=== PATIENT | female | born 1980 | race Caucasian/White ===

== ENCOUNTER 2017-11-23 12:00 | Outpatient (RCR) | payer BC, SELFPAY ==
--- NOTE | 2017-11-12 08:28 | AT_ITS ---
11/12/17 ATx1: See flow sheet, skilled cueing for LE strengthening program with focus of (L) knee stability via open and closed chain efforts. Skilled cueing for proper movement patterns but otherwise requires minimal supervision once cued. Direct tx: 15 minutes for instruction and then able to complete with minimal supervision. Total Time: 45 minutes Direct Time: 15 minutes
--- NOTE | 2017-11-17 09:43 | NT_ITS ---
11/17/17 Cancelled today's aquatic therapy session. Lizbet Tenorio, IN [employer]
--- NOTE | 2017-11-19 15:27 | AT_ITS ---
11/19/17 ATx1 Bernice states that after last aquatic therapy session she was a little sore but it wasn't too bad. She reports that this is her last scheduled PT session before she sees Dr. Martin on Thursday next week. Pt completed a therapeutic exercise program in an aquatic setting for LE strengthening with decompression for pain relief as per flow sheet. Added ankle fins for resistance to all exercises today with good tolerance and modifications made to reps are noted on flow sheet. Pt requires skilled cueing for proper exercise performance to avoid compensatory movement strategies. She ends with deep water biking, double knee to chest, LE flexion and extension and LE abduction and adduction. Direct Time: 15 minutes Total Time: 45 minutes
--- NOTE | 2017-11-23 12:19 | PTTR_ITS ---
DATE: 11/23/17 SUBJECTIVE: Patient reports she has 7/10 discomfort if standing beyond one hour , and has immediate swelling. Her pain is more well managed now, only because she stays off of her feet. She follows up with Dr. Martin tomorrow. Compliant with HEP: x Yes No OBJECTIVE: KX applied to all codes N/A Gait: Antalgic, with decreased stance L LE. Of L knee: ROM: 0-130*, pain at end ranges, especially with hyperextension over pressure. Strength: Quad 4/5 with pain, HS 4+/5 minimal to no pain. Accessory motions: PF WNL. TF AP/PA non irritable, but pain with hyperextension and rotational overpressure. Special Testing: (+) Dylan's, (+) Thebeto's. Therapeutic procedures ([id number]). Above assessment, and review of HEP - encouraging continued [place] activities, as CKC exacerbate her condition. Direct treatment time: 15 minutes Total treatment time: 15 minutes Assessment: Bernice has essentially failed to PT conservative management. The only way to control her pain level is with with non weightbearing activities, which of course does not serve her ADL's, functional tasks, and occupational demands well. She has been compliant with all that I have asked of her, and has put good effort forward to attempt rehabilitation of her knee. Ortho follow up recommended, which anticipation of further invasive intervention needed. Plan: Ortho consultation, PT on hold. Will proceed per ortho recommendations if they have further suggestions, or will follow through with Bernice's care post ortho intervention.
== END 2017-12-11 23:59 | disposition home or self-care (01) ==
LOC: PT 12:00
PROVIDERS: PCP Nurse Practitioner Family; Referring Provider Orthopaedic Surgery; Visit Provider Orthopaedic Surgery
DX: M23.92 Unspecified internal derangement of left knee (principal)
CPT/HCPCS: 97110; 97113

== ENCOUNTER → 2017-12-03 00:45 | Outpatient (CLI) | payer BC, SELFPAY ==
--- NOTE | 2017-12-03 09:57 | DI.REPORT_ITS ---
SYMPTOM/DIAGNOSIS: LEFT KNEE PAIN M25.562, M70.52 LEFT KNEE MRI: 12/03 MR examination of the left knee was performed according to the usual protocol. Examination is technically limited as the patient would not fit in to the knee coil and the examination was performed utilizing body coil. There is subchondral abnormal bony signal in lateral femoral condyle which also appears to be associated with articular cartilage thinning. Lateral meniscus very poorly visualized and is likely torn. Medial meniscus grossly intact. Cruciate ligaments grossly intact. There appears to be some degenerative cartilage change at the patellofemoral joint. CONCLUSION: Very limited study. Intact cruciate ligaments. Degenerative arthritis involving lateral tibiofemoral joint and patellofemoral joint. Suspect lateral meniscal tear.
== END ==
PROVIDERS: PCP Nurse Practitioner Family; Visit Provider Orthopaedic Surgery
DX: M25.562 Pain in left knee (principal); M70.52 Other bursitis of knee, left knee; M17.12 Unilateral primary osteoarthritis, left knee
CPT/HCPCS: 73721

== ENCOUNTER 2017-12-15 09:55 | Outpatient (CLI) | payer BC, SELFPAY ==
--- NOTE | 2017-12-15 11:58 | W.PM.HP.N ---
Date of service: 12/15/17 Time of Service: 11:59 Assessment and Plan (1) Internal derangement of left knee: Current visit: Yes Status: Chronic Assessment: Internal derangement left knee with lateral meniscus abnormality. Plan: Left knee arthroscopy with partial lateral meniscectomy with Dr. Martin scheduled for 12/23/2017. Details were discussed with patient as well as risks and pertinent anatomy. All questions were answered. Problem details: lateral meniscus abnormality History of Present Illness Chief Complaint: Left knee pain Narrative: Bernice is a 37-year-old female who comes in complaining of left knee pain. Back in September she had a fracture to her right ankle and was forced to use a fracture walking boot. She states that her knee pain started becoming worse ever since she started wearing a fracture walking boot. She has had a previous history with this left knee including 2 arthroscopic surgeries with lateral meniscus intervention. She states that her left knee was never really quite the same even since the surgery however this recent injury has exacerbated it exponentially. She has tried conservative treatment including a tapered steroid dose as well as physical therapy which she says has gotten her about 50% better however she is not happy with where she is at. She subsequently got an MRI which showed a signal in the posterior horn of lateral meniscus according to reading by Dr. Martin. Due to the inability for her to get all the way better with conservative treatment and his findings on MRI Dr. Martin suggests arthroscopic knee surgery on her left side and Bernice is anxious to proceed. Patient denies any cardiovascular history, CVA, HTN, DM or bleeding disorders. Review of Systems Constitutional Denies fever(s) and Denies lethargy Cardiovascular Denies chest pain, Denies rapid heart rate, Denies irregular heart rhythm, Denies palpitations and Denies dyspnea on exertion Respiratory Denies cough, Denies dyspnea on exertion and Denies wheezing Gastrointestinal Denies abdominal pain, Denies hematochezia, Denies nausea and Denies vomiting Genitourinary Denies abnormal vaginal bleeding, Denies hematuria and Denies dysuria Endocrine Denies palpitations Allergic/Immunologic Denies wheezing PFSH Family History Father Essential hypertension Anxiety Depression Heart disease Hyperlipidemia Myocardial infarction COPD (chronic obstructive pulmonary disease) Diverticular disease of colon Asthma Mother Depression Diverticular disease of colon Grandfather Diabetes Alcohol abuse Personal history of malignant neoplasm Heart disease Brother Sleep apnea Essential hypertension Medical History Gastric ulcer (Chronic) Depression (Chronic) Abnormal Pap smear of cervix BMI 39.0-39.9,adult Contraceptive management Diverticulitis large intestine GERD (gastroesophageal reflux disease) Migraine Tobacco use Social History current occupational status: employed current occupation: [employer] Smoking/Tobacco Use Status: Former Tobacco Use alcohol intake: never substance use type: does not use Surgical History Arthroplasty of knee (~02/2013) Colonoscopy - MAC (10/06/17) EGD - MAC (03/21/16) Oophrectomy, Right (~2008) egd (07/13/12) lazik surgery (01/28/12) Meds Home Medications Medication Instructions Recorded Confirmed Type acetaminophen [Mapap Extra 1 tab PO PRN PRN 09/06/14 12/15/17 History Strength] ondansetron [Zofran ODT] 4 mg PO Q6H PRN #15 tab-cap 12/16/16 12/15/17 Clinic chlorthalidone 0.5 tab PO DAILY 03/05/17 12/15/17 History etonogestrel [Nexplanon] 06/10/17 History eletriptan [Relpax] 40 mg PO PRN #6 tab-cap 08/05/17 12/15/17 Clinic dicyclomine 20 mg PO QID 10/02/17 12/15/17 History celecoxib [Celebrex] 100 mg PO DAILY 10/06/17 12/15/17 History tramadol 50 mg PO Q6H PRN #30 tab-cap 10/12/17 12/15/17 History trazodone 100 mg PO HS 12/15/17 12/15/17 History Allergies Allergy/AdvReac Type Severity Reaction Status Date / Time gabapentin Allergy Intermediate muscle Unverified 12/15/17 10:50 spasm varenicline tartrate Allergy Mild Itching Unverified 12/15/17 10:50 [From Chantix] Sulfa (Sulfonamide AdvReac Severe vomiting Unverified 12/15/17 10:50 Antibiotics) NSAIDS (Non-Steroidal AdvReac Intermediate GI Symptoms Unverified 12/15/17 10:50 Anti-Inflamma zolpidem tartrate AdvReac Intermediate sleep walks Unverified 12/15/17 10:50 [From Ambien] trimethoprim [From Bactrim] AdvReac Mild Nausea Unverified 12/15/17 10:50 polyethylene glycol 3350 AdvReac GI upset Unverified 12/15/17 10:50 [From Miralax] burdocks Allergy Mild hives, Uncoded 12/15/17 10:50 itching naldecon Allergy unknown Uncoded 12/15/17 10:50 Exam [place] Head: normocephalic and atraumatic General nose exam: no nasal discharge Throat: uvula midline and other (no erythema) Eyes Conjunctivae: conjunctivae normal Sclera: sclerae normal Pupils: PERRL Resp Auscultation: clear to auscultation bilaterally Cardio Rate: regular rate Rhythm: regular rhythm Heart Sounds: S1 normal, S2 normal and no murmurs Pulses: radial pulses present on the left (rate 72, regular rhythm) Other: BP: 108/70 GI Palpation: soft, no hepatosplenomegaly and nontender Auscultation: normal bowel sounds Skin General skin exam: no rashes or lesions noted
== END 2017-12-15 10:15 ==
PROVIDERS: PCP Nurse Practitioner Family; Visit Provider Orthopaedic Surgery
DX: M23.92 Unspecified internal derangement of left knee (principal); Z01.818 Encounter for other preprocedural examination
CPT/HCPCS: NC

== ENCOUNTER 2017-12-23 11:08 | Day surgery (SDC) | payer BC, OTHER, SELFPAY ==
[2017-12-23] VITALS (7 sets, daily range): BP systolic 120–142; BP diastolic 65–87; PULSE 78–92; RESP 15–20; TEMP 36.8–37.3; O2SAT 93–96
[2017-12-23] MEDS: Lactated Ringers 1,000 ML 80 ML IV (11:55)
--- NOTE | 2017-12-23 14:19 | W.PM.DSUDISC ---
Discharge Plan Disposition Patient Disposition: HOME Condition: Good Discharge Details Reason For Visit: Arthroscopy L knee Attending Provider: Jose Martin Primary Care Provider: Julia Chen Home Meds and New Rx's Prescriptions: New celecoxib [Celebrex] 200 mg capsule 200 mg PO BID Qty: 20 RF: 0 oxycodone-acetaminophen 5-325 mg tablet 1 tab PO Q4H Qty: 20 RF: 0 No Action ondansetron [Zofran ODT] 4 MG tablet,disintegrating 4 mg PO Q6H PRN Qty: 15 RF: 0 eletriptan [Relpax] 40 MG tablet 40 mg PO PRN Qty: 6 RF: 5 tramadol 50 MG tablet 50 mg PO Q6H PRN Qty: 30 RF: 0 acetaminophen [Mapap Extra Strength] 500 MG tablet 1 tab PO PRN PRNRF: 0 famotidine 20 MG tablet 40 mg PO BID Qty: 60 RF: 0 etonogestrel [Nexplanon] 68 MG implant RF: 0 dicyclomine 20 MG tablet 20 mg PO QID RF: 0 celecoxib [Celebrex] 100 MG capsule 100 mg PO DAILY RF: 0 trazodone 50 mg Tablet 100 mg PO HS RF: 0 omeprazole 40 mg Capsule,Delayed Release(Dr/Ec) 40 mg PO DAILY RF: 0 chlorthalidone 25 MG tablet 0.5 tab PO DAILY RF: 0 Discharge Instructions Additional Instructions: Elevate L leg on 1-2 pillows as much as possible over next 48 hours. Crutches to walk. Put as much weight on L leg as your discomfort allows. May discontinue crutches when you can comfortably put frull weight on L leg. Keep dressings dry and intact for next 48 hours. After 48 hours, may remove dressings, shower, and get incisions wet. Leave incisions uncovered when they are dry and sealed. Apply cryocuff to L knee continuously overnite. Tomorrow, start to use 4 times/day for 1 hour each time. Outpatient physical therapy on Thursday. Folloow up in 's office in 2 weeks. Stand Alone Forms: [facility] Referrals: [facility] [Provider Group] - 12/25/17 12:00 am Jose Martin MD [ [facility] STAFF PHYSICIAN] - 01/06/18 11:00 am Equipment/Supplies: Partial Weight Bearing Crutches Activity:: Activity as Tolerated Remove Dressings/Wound Care:: 48 hours Shower/Bathe:: 48 hours
--- NOTE | 2017-12-23 14:49 | PDOC.DSDIS_ITS ---
Discharge Plan Disposition Patient Disposition: HOME Condition: Good Discharge Details Reason For Visit: Arthroscopy L knee Attending Provider: Jose Martin Primary Care Provider: Julia Chen Home Meds and New Rx's Prescriptions: New celecoxib [Celebrex] 200 mg capsule 200 mg PO BID Qty: 20 RF: 0 oxycodone-acetaminophen 5-325 mg tablet 1 tab PO Q4H Qty: 20 RF: 0 No Action ondansetron [Zofran ODT] 4 MG tablet,disintegrating 4 mg PO Q6H PRN Qty: 15 RF: 0 eletriptan [Relpax] 40 MG tablet 40 mg PO PRN Qty: 6 RF: 5 tramadol 50 MG tablet 50 mg PO Q6H PRN Qty: 30 RF: 0 acetaminophen [Mapap Extra Strength] 500 MG tablet 1 tab PO PRN PRNRF: 0 famotidine 20 MG tablet 40 mg PO BID Qty: 60 RF: 0 etonogestrel [Nexplanon] 68 MG implant RF: 0 dicyclomine 20 MG tablet 20 mg PO QID RF: 0 celecoxib [Celebrex] 100 MG capsule 100 mg PO DAILY RF: 0 trazodone 50 mg Tablet 100 mg PO HS RF: 0 omeprazole 40 mg Capsule,Delayed Release(Dr/Ec) 40 mg PO DAILY RF: 0 chlorthalidone 25 MG tablet 0.5 tab PO DAILY RF: 0 Discharge Instructions Additional Instructions: Elevate L leg on 1-2 pillows as much as possible over next 48 hours. Crutches to walk. Put as much weight on L leg as your discomfort allows. May discontinue crutches when you can comfortably put frull weight on L leg. Keep dressings dry and intact for next 48 hours. After 48 hours, may remove dressings, shower, and get incisions wet. Leave incisions uncovered when they are dry and sealed. Apply cryocuff to L knee continuously overnite. Tomorrow, start to use 4 times/ day for 1 hour each time. Outpatient physical therapy on Thursday. Folloow up in 's office in 2 weeks. Stand Alone Forms: [facility] Referrals: [facility] [Provider Group] - 12/25/17 12:00 am Jose Martin MD [ [facility] STAFF PHYSICIAN] - 01/06/18 11:00 am Equipment/Supplies: Partial Weight Bearing Crutches Activity:: Activity as Tolerated Remove Dressings/Wound Care:: 48 hours Shower/Bathe:: 48 hours
[2017-12-23] MEDS: oxyCODONE-CR 10 MG TABCR PO (15:25)
--- NOTE | 2017-12-23 18:30 | ROE_ITS ---
DATE OF PROCEDURE: December 23, 2017 PREOPERATIVE DIAGNOSIS: Torn left medial meniscus. POSTOPERATIVE DIAGNOSIS: #1. Torn left medial meniscus. #2 Torn left lateral meniscus. #3. Osteoarthritis of the lateral compartment left knee. PROCEDURES: #1. Arthroscopy of the left knee with partial medial and lateral meniscectomies. #2. Limited chondroplasty of the lateral femoral condyle and lateral tibial plateau. SURGEON: Jose Martin M.D. ANESTHESIA: General. INDICATIONS: This is a 37-year-old white female who has had persistent pain, swelling, and decreased ability to ambulate following a twisting injury to her left knee. She was treated conservatively wi th Celebrex and Physical Therapy. Because of failure to improve with conservative treatment an MRI s can was obtained. The MRI scan showed a torn lateral meniscus. She continued to have medial symptom s in her knee as well so there was a suspicion for a medial meniscal injury as well. Since she faile d to improve more than 50% after several weeks of Physical Therapy, arthroscopy was recommended to al leviate her symptoms. The risks and complications of the procedure were explained to the patient in detail preoperatively. PROCEDURE: The patient was taken to the Operating Room on 12/23/17. She was placed supine on the ope rating table and a general anesthetic was administered. The left thigh was placed in the arthroscopi c leg key and the left knee was then prepped and draped free in the usual sterile fashion. Arthroscopic portals were established with some difficulty because of her obesity. However, I was ab le to first see the medial compartment. The patient had a tear of the medial meniscus about at the m idportion that extended from the inner margin to the outer margin. The articular cartilage in the me dial compartment was intact and undamaged. I then thoroughly debrided the torn portion of the menisc us down to a stable rim using the high-radiofrequency electrocautery wand. The remainder of the medi al meniscus was probed under direct vision after resection. The remaining rim of meniscus was stable . I only had to debride maybe 25% of the meniscus. The intercondylar notch was intact to anterior and posterior cruciate ligaments. The lateral compartment showed a tear of the lateral meniscus beginning approximately at the poplitea l hiatus and extending to the anterior horn. The tear did not extend to the outer rim and it was a c omplex tear. I resected the lateral meniscal tear with the high-radiofrequency electrocautery wand. In addition to the torn lateral meniscus, there was evidence of osteoarthritis in the lateral compar tment. It was noted on the lateral tibial plateau starting at the lateral tibial spine and extending further laterally for probably 10 or 15 mm in diameter. There was a section that was at least grade 3 and possible grade 4 loss of articular cartilage. Opposite this tibial lesion was an area of some grade 2 loss of articular cartilage on the lateral femoral condyle. I performed a chondroplasty on the lateral femoral condyle and smoothed and contoured the cartilage to stable tissue. I then also d id a chondroplasty to debride the articular cartilage to a stable rim on the lateral tibial plateau a s well. The patellofemoral joint showed normal patellar tracking and normal articular cartilage in the patell ofemoral joint. The suprapatellar pouch was clear. At this point the knee was copiously irrigated with saline solution using the arthroscopy pump until the outflow was clear. Twenty cc's of 0.5% Marcaine with epinephrine solution along with 4 mg of mor phine were instilled into the left knee and all instruments were removed from the knee. The arthrosc opy portals were infiltrated with 0.5% Marcaine with epinephrine solution and were approximated with interrupted #4-0 nylon sutures. Sterile dressings were applied of Xeroform gauze, sterile gauze 4x4s , ABD pads, and wrapped with 6-inch Juan Manuel bandages for a light compression dressing. The patient tolerated the procedure well. Her anesthesia was reversed without complication. She was discharged to the Recovery Room in good condition and blood loss was minimal. The patient was discharged home from the Day Surgery Unit when fully recovered from her general anest hesia. She was given instructions to try to elevate her left knee on one to two pillows as much as p ossible for the next 48 hours. She is to apply a Cryo/Cuff to her left knee continuously overnight a nd then tomorrow start using the Cryo/Cuff four times a day for an hour each time to help with swelli ng and pain. She may remove her dressings, shower and get her incisions wet after 48 hours. She may leave the incisions uncovered when they are dry and sealed. She is to use crutches to walk, weightb earing as tolerated to the left leg. She may discontinue the crutches when she can step comfortably on her left leg without pain. She will begin outpatient Physical Therapy on Thursday at [facility] or range of motion and strengthening of her left knee following arthroscopy. She is given a prescrip tion for inflammation and pain of Celebrex 200 mg p.o. b.i.d. for 20 days and then a prescription for pain of Percocet 5 mg/325 mg, 1 tablet every 6 hours as needed for breakthrough pain. She will foll ow up in my office in two weeks.
== END 2017-12-23 16:02 | disposition home or self-care (01) ==
PROVIDERS: PCP Nurse Practitioner Family; Visit Provider Orthopaedic Surgery
PROC: (CPT 29870; principal; 2017-12-23 13:00)
DX: S83.272A Complex tear of lateral meniscus, current injury, left knee, initial encounter (principal); S83.242A Other tear of medial meniscus, current injury, left knee, initial encounter; M17.12 Unilateral primary osteoarthritis, left knee; X58.XXXA Exposure to other specified factors, initial encounter
CPT/HCPCS: 29879; 29880; 81025; J0131; J0690; J1100; J1885; J2405; J3010

== ENCOUNTER 2018-02-09 15:12 | Outpatient (REF) | payer BC, SELFPAY ==
[2018-02-11 14:27] LABS: Chlamydia Result Negative; GC Result Negative; Specimen Description CERVIX
== END 2018-02-09 15:32 ==
LOC: LBN 15:12
PROVIDERS: PCP Nurse Practitioner Family; Visit Provider Nurse Practitioner Family
DX: Z11.3 Encounter for screening for infections with a predominantly sexual mode of transmission (principal)
CPT/HCPCS: 87491; 87591

== ENCOUNTER 2018-02-18 11:54 | Outpatient (REF) | payer SELFPAY ==
[2018-02-18 12:25] LABS: Clarity CLEAR; Nucleated Cells 1009 /MM3 (0-0); Source L KNEE
[2018-02-18 12:39] LABS: Mononuclear Cells 92 % (0-0); Polynuclear Cells 8 % (0-0)
== END 2018-02-18 12:14 ==
LOC: LBN 11:54
PROVIDERS: PCP Nurse Practitioner Family; Visit Provider Orthopaedic Surgery
DX: M25.462 Effusion, left knee (principal)
CPT/HCPCS: 87070; 87205; 89051; 89060

== ENCOUNTER 2018-03-26 01:18 | Outpatient (CLI) | payer BC, SELFPAY ==
--- NOTE | 2018-03-31 14:01 | NS.NUTBLAN_ITS ---
Date of service: 03/26/18 Time of Service: 08:00 Nutritional Consult ASSESSMENT: Ms. Shore presents for nutritional counseling for weight management. She reports that she is frustrated by her inability to lose weight. She states that she does not feel like she eats excessively. She does admit to not being physically active as her job has her job has her on her feet all day. She tends to be a snacker. She does not eat breakfast and then throughout the day she has a Renee, cheezits, string cheese. She may have a sandwich or something small from [employer]. She does have a 20 oz. Mountain Dew daily but she does not ever get through the who thing. In the evening, if her daughter is home, she will have a meat, starch, and a vegetable dinner. If her daugher it not with her she will snacks like crackers and cheese, and pepperoni. She is 67.5 and [address]. NUTRITIONAL DIAGNOSIS: Class 3 obesity related to excess energy intake and physical inactivity as evidenced by BMI of 48 kg/m2. INTERVENTION: Acknowledged her frustration at the challenges of weight management but that there were a few things that she could try to differently. if she was willing. Encouraged her to eat not more than 4 times per day and preferably only 3 times per day to reduce the amount of circulating insulin from digestion, as insulin stores fat. Suggested eliminating the cheezits as it is about the only processed food that she eats regularly. With regard to her Mountain Dew intake, encouraged her to reduce or eliminate her intake. Until the next session Ms. Shore agrees to reduce her Mountain Dew intake and eat three specific meals. MONITORING AND EVALUATION: Ms. Shore will return in one month. Will follow her progress at that time. Will evaluate her nutrition care plan and adjust as needed. Time Spent in Nutritional Counseling and Treatment: 40 minutes face to face
== END 2018-03-26 01:38 ==
PROVIDERS: PCP Nurse Practitioner Family; Visit Provider Dietitian, Registered
DX: E66.9 Obesity, unspecified (principal); Z68.42 Body mass index [BMI] 45.0-49.9, adult; Z71.3 Dietary counseling and surveillance
CPT/HCPCS: 97802

== ENCOUNTER 2018-06-04 09:19 | Outpatient (CLI) | payer BC, SELFPAY ==
--- NOTE | 2018-06-04 09:17 | DI.RAD_ITS ---
SYMPTOM/DIAGNOSIS: LT KNEE PAIN BILATERAL LOWER EXTREMITIES: AP views of the lower extremities were obtained for leg length determination. Note is made of marked degenerative change of the medial tibiofemoral joint on the left. LEFT KNEE: Two views were obtained and show narrowing of the medial and lateral tibiofemoral joints and probably the patellofemoral joint as well. Mild hypertrophic spurring of the bones of the knee noted. CONCLUSION: DJD of the knee.
== END 2018-06-04 09:39 ==
PROVIDERS: PCP Nurse Practitioner Family; Visit Provider Physician Assistant
DX: M25.562 Pain in left knee (principal); M17.12 Unilateral primary osteoarthritis, left knee
CPT/HCPCS: 73560; 77073

== ENCOUNTER 2018-07-18 11:10 | Emergency (ER) | payer BC, SELFPAY ==
[2018-07-18] VITALS (22 sets, daily range): BP systolic 117–132; BP diastolic 76–101; PULSE 74–101; RESP 15–30; TEMP 36.6; O2SAT 99
--- NOTE | 2018-07-18 11:16 | NUR.NOTE ---
pt has a history of Endocarditis that was treated and resolved pt he here because she is terribly concerned (to the point of tears) that she has Endocarditis again as a result of her current symptoms. PT presents today with week history of nausea vomiting diarrhea neck pain headache
--- NOTE | 2018-07-18 11:49 | W.ED.GENAD ---
Discharge Plan Disposition Patient Disposition: HOME Condition: Improving Discharge Details Chief Complaint: GenMedical Clinical Impression: Gastroenteritis, Acute hypokalemia Primary Care Provider: Julia Chen ED Provider: Jose Silva Home Meds and New Rx's Prescriptions: Continued tramadol 50 mg tablet 50 mg PO Q8H PRN (Reason: pain) Qty: 90 RF: 2 ondansetron [Zofran ODT] 4 MG tablet,disintegrating 4 mg PO Q6H PRN Qty: 15 RF: 0 eletriptan [Relpax] 40 MG tablet 40 mg PO PRN Qty: 6 RF: 5 topiramate [Topamax] 50 mg tablet 50 mg PO DIRECTED Qty: 60 RF: 5 meloxicam 7.5 mg tablet 7.5 mg PO BID Qty: 60 RF: 0 trazodone 50 mg Tablet 100 mg PO HS RF: 0 lidocaine 5 % Adhesive Patch,Medicated 1 patch Transdermal DAILY RF: 0 nystatin 100,000 unit/gram Powder 1 applic topical TID PRNRF: 0 acetaminophen [Mapap Extra Strength] 500 MG tablet 1 tab PO PRN PRNRF: 0 etonogestrel [Nexplanon] 68 MG implant RF: 0 omeprazole 40 mg Capsule,Delayed Release(Dr/Ec) 40 mg PO DAILY RF: 0 chlorthalidone 25 MG tablet 0.5 tab PO DAILY RF: 0 Discharge Instructions Instructions: Hypokalemia (ED), Gastroenteritis (ED) Additional Instructions: You have requested discharge despite persistent low potassium. Return to any time for reevaluation We will order an outpatient follow-up potassium test for you with results to be sent to the primary care office. Our care management team will contact your primary care physician's office Increase potassium in your diet including bananas, strawberries, tree nuts such as cashews. Return if you feel palpitations, weakness, or any other acute concerns Medical Decision Making 37-year-old female presents from home complaining of 3+ days of nausea, vomiting, loose watery stool with associated mild dull achy headache and lightheadedness with rising. 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 No IV drug use, no rash or lesions. She is afebrile with a pulse approximately 100, mild to moderately anxious on exam. Most consistent with acute gastroenteritis, general screening laboratories including lactate and blood culture obtained. Patient given a fluid bolus. Labs most notable for a potassium of 2.4. Patient has had similar history of hypokalemia in the past. Today it is most likely secondary to GI losses. A screening EKG obtained and potassium supplementation initiated in the ED with both oral and parenteral routes. Repeat potassium obtained and increased to 2.6. Patient requested discharge to home. Her EKG does not show any acute changes. She was given an additional 20 mEq of potassium by mouth and a repeat potassium was ordered for the next 1-2 days time. This may be some chronic losses due to her chlorthalidone . Idiscussed with her that I recommend ongoing observation and supplementation with repeat potassium but she declines this stating she needs to attend to her children at home. Lab Data Laboratory Results - last 24 hr 07/18/18 07/18/18 07/18/18 12:00 12:00 12:40 WBC 5.91 RBC 5.81 H Hgb 13.8 Hct 41.5 MCV 71.4 L MCH 23.8 L MCHC 33.3 RDW 16.0 H Plt Count 263 MPV 11.7 H Immature Gran % 0.3 Neutrophils % 50.7 Lymphocytes % 35.5 Monocytes % 10.8 Eosinophils % 1.9 Basophils % 0.8 Absolute Neutrophils 2.99 Absolute Lymphocytes 2.10 Absolute Monocytes 0.64 Absolute Eosinophils 0.11 Absolute Basophils 0.05 RBC Morphology See below Microcytosis 3+ Sodium 138 Potassium 2.4 L* Chloride 99 Carbon Dioxide 25.6 Anion Gap 13.4 H BUN 20 H Creatinine 0.97 Estimated GFR/1.73 m2 >= 60.00 Glucose 108 H Lactate 0.9 Calcium 8.9 Magnesium 2.4 Total Bilirubin 0.4 AST 25 ALT 30 Alkaline Phosphatase 89 C-Reactive Protein 2.93 H Total Protein 7.9 Albumin 3.7 ECG Data Attestation: I personally reviewed and interpreted this ECG (s) as follows: Interpretation: Normal sinus rhythm with a rate of 80, the QRS is narrow, intervals unremarkable, no ST segment elevation HPI General Mode of arrival: ambulatory. Date/Time Provider Initiated Documentation: 07/18/18 11:21. Limitations to Documentation: no limitations. Information obtained by: patient. History of Present Illness 37 year old F presents to the emergency department with the chief complaint of 3 days of emesis, watery stool, lightheadedness with rising. , described as moderate, Quality is described as dull, Patient reports no radiation. Patient started experiencing this day(s) and it has been intermittent. No relieving factors improve symptom(s), No exacerbating factors reported . Patient notes fever/chills, headaches, loss of appetite, malaise, nausea/vomiting and weakness; denies syncope. Patient did receive the following treatments prior to arrival, none Related Data Home Medications Medication Instructions Recorded Confirmed acetaminophen [Mapap Extra 1 tab PO PRN PRN 09/06/14 07/18/18 Strength] ondansetron [Zofran ODT] 4 mg PO Q6H PRN #15 tab-cap 12/16/16 07/18/18 chlorthalidone 0.5 tab PO DAILY 03/05/17 07/18/18 etonogestrel [Nexplanon] 06/10/17 02/25/18 eletriptan [Relpax] 40 mg PO PRN #6 tab-cap 08/05/17 07/18/18 omeprazole 40 mg PO DAILY 12/23/17 07/18/18 topiramate 50 mg tablet 50 mg PO DIRECTED #60 tab 04/26/18 07/18/18 meloxicam 7.5 mg tablet 7.5 mg PO BID #60 tab 06/07/18 07/18/18 tramadol 50 mg tablet 50 mg PO Q8H PRN #90 tab 06/17/18 07/18/18 lidocaine 1 patch TRANSDERMAL DAILY 07/16/18 07/18/18 nystatin 1 applic TOPICAL TID PRN 07/16/18 07/18/18 trazodone 100 mg PO HS 07/16/18 07/18/18 Previous Rx's Medication Instructions Recorded eletriptan [Relpax] 40 mg PO PRN #6 tab-cap 08/05/17 topiramate 50 mg tablet 50 mg PO DIRECTED #60 tab 04/26/18 meloxicam 7.5 mg tablet 7.5 mg PO BID #60 tab 06/07/18 tramadol 50 mg tablet 50 mg PO Q8H PRN #90 tab 06/17/18 Allergies Allergy/AdvReac Type Severity Reaction Status Date / Time guaifenesin Allergy Intermediate Unverified 07/16/18 15:18 varenicline tartrate Allergy Mild Itching Verified 07/16/18 15:18 [From Chantix] Sulfa (Sulfonamide AdvReac Severe vomiting Verified 07/16/18 15:18 Antibiotics) gabapentin AdvReac Intermediate muscle Verified 07/16/18 15:18 spasm NSAIDS (Non-Steroidal AdvReac Intermediate GI Symptoms Verified 07/16/18 15:18 Anti-Inflamma zolpidem tartrate AdvReac Intermediate sleep walks Verified 07/16/18 15:18 [From Ambien] trimethoprim [From Bactrim] AdvReac Mild Nausea Verified 07/16/18 15:18 polyethylene glycol 3350 AdvReac GI upset Verified 07/16/18 15:18 [From Miralax] burdocks Allergy Mild hives, Uncoded 07/16/18 15:18 itching naldecon Allergy unknown Uncoded 07/16/18 15:18 General Stated Complaint: GenMedical LATESHA: 3 Review of Systems Review of Systems Positive sick contact in the home. No recent travel. No rash. Broken cusps of left lower premolar.8 systems reviewed and otherwise - [facility] Medical History GERD (gastroesophageal reflux disease) Depression (Chronic) Migraine headache without aura (Chronic) Migraine headache with aura (Chronic) Gastric ulcer (Chronic) PCOS (polycystic ovarian syndrome) (Resolved) C. difficile colitis (Resolved) CMV (cytomegalovirus) infection (Resolved) Migraine (Resolved) Abnormal Pap smear of cervix BMI 39.0-39.9,adult Contraceptive management Diverticulitis large intestine Tobacco use Surgical History Status post arthroscopy of left knee (Acute) Arthroplasty of knee (~02/2013) Colonoscopy - MAC (10/06/17) EGD - MAC (03/21/16) Oophrectomy, Right (~2008) egd (07/13/12) lazik surgery (01/28/12) Family History Father Essential hypertension Anxiety Depression Heart disease Hyperlipidemia Myocardial infarction COPD (chronic obstructive pulmonary disease) Diverticular disease of colon Asthma Mother Depression Diverticular disease of colon Grandfather Diabetes Alcohol abuse Personal history of malignant neoplasm Heart disease Brother Sleep apnea Essential hypertension Social History Smoking/Tobacco Use Status: Former Tobacco Use Alcohol Intake: never Drug use: Occasionally Substance use type: marijuana current occupation: [employer] Do you feel safe at home: Yes Do you feel safe in your relationship?: Yes Additional Social history: She has one daughter and two stepchildren, lives with her partner Geovanni. 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 Female Reproductive History Menstrual control method: implanted History History 1 Para 1 Hx # Term Pregnancies Multiple births Hx # Pregnancies Ectopic pregnancies AB induced Hx Number of Living Children AB spontaneous Exam Narrative Exam Narrative: GEN: awake, alert, oriented 3. Pleasant, well groomed, interactive. HEAD: Normocephalic, atraumatic ENT: Mucous membranes dry, oropharynx with broken lingual cusp left premolar, External ear exam unremarkable EYES: PERRL, EOMI NECK: Full ROM, no PACO, no menigismus CHEST/RESP: Nontender, clear to auscultation bilateral, no wheeze/rhonchi/rales CARDIOVASCULAR: Not tachycardic at the time of my exam RRR, no murmur, rub danika. 2+ Rad pulse bilateral ABDOMEN: Soft, nontender, no mass. +Bowel sounds EXT: Full ROM, no edema, no rash Neuro: Grossly normal neurologic exam, conversant, interactive. Psych: Speech fluent, thoughts congruent, affect anxious Course Vital Signs Temperature 36.6 C 07/18/18 11:19 Pulse 101 H 07/18/18 11:19 Respiratory Rate 16 07/18/18 11:19 Blood Pressure 120/101 H 07/18/18 11:19 Pulse Oximetry 99 07/18/18 11:19 Temperature 36.6 C 07/18/18 11:19 Temperature Source Skin 07/18/18 11:19 Pulse 101 H 07/18/18 11:19 Respiratory Rate 16 07/18/18 11:19 Respiratory Effort 07/18/18 11:25 Blood Pressure 120/101 H 07/18/18 11:19 Blood Pressure Position Sitting 07/18/18 11:19 Pulse Oximetry 99 07/18/18 11:19 Oxygen Delivery Method Room Air 07/18/18 11:19 Oxygen Flow Rate 0 07/18/18 11:19 Pain Level 0 07/18/18 11:19
[2018-07-18 12:22] LABS: Abs Immature Grans 0.02 k/cumm (0.0-0.09); Absolute Basophil Count 0.05 k/cumm (0.0-0.2); Absolute Eosinophil Count 0.11 k/cumm (0.0-0.7); Absolute Monocyte Count 0.64 k/cumm (0.11-0.7); Absolute Neutrophil Count 2.99 k/cumm (1.2-6.7); Basophils % 0.8; Eosinophils % 1.9; HCT 41.5 % (36.0-46.0); HGB 13.8 g/dL (12.0-15.5); Immature Grans % 0.3; Lymphocytes % 35.5; Mean Corp. HGB Concentration 33.3 g/dL (32.0-36.0); Mean Corpuscular Hemoglobin 23.8 pg (27.0-33.0); Mean Corpuscular Volume 71.4 fL (80-95); Mean Platelet Volume 11.7 fL (8.0-11.0); Monocytes % 10.8; Neutrophils % 50.7; Platelet Count 263 x1000/uL (130-400); RBC 5.81 m/cumm (4.00-5.20); White Blood Cell Count 5.91 k/cumm (4.4-10.8)
[2018-07-18 12:36] LABS: ALT 30 U/L (12-78); AST 25 U/L (15-37); Albumin 3.7 g/dL (3.4-5.0); Alkaline Phosphatase 89 U/L (46-116); Anion Gap 13.4 mmol/L (3-11); BUN 20 mg/dL (7-18); Bilirubin, Total 0.4 mg/dL (0.2-1.0); C-Reactive Protein 2.93 mg/dL (0.0-0.3); CO2 25.6 mmol/L (21.0-32.0); CREATININE 0.97 mg/dL (0.55-1.02); Calcium 8.9 mg/dL (8.5-10.1); Chloride 99 mmol/L (98-107); Glucose 108 mg/dL (70-100); Magnesium 2.4 mg/dL (1.8-2.4); Sodium 138 mmol/L (136-145); Total Protein 7.9 g/dL (6.4-8.2)
[2018-07-18 12:45] LABS: Potassium 2.4 mmol/L (3.5-5.1)
[2018-07-18 12:48] LABS: Lactate-non-spesis 0.9 mmol/l (0.6-1.4)
[2018-07-18 13:04] LABS: Microcytosis 3+
[2018-07-18] MEDS: Potassium Chloride 20 MEQ TABCR PO ×3 (13:51→15:47)
[2018-07-18] MEDS: POTASSIUM CHLORIDE 20 MEQ/100 ML BAG 50 MEQ IVPB (13:51)
[2018-07-18] MEDS: Normal Saline 1,000 ML 1000 ML IV (13:51)
[2018-07-18 15:27] LABS: Potassium 2.6 mmol/L (3.5-5.1)
--- NOTE | 2018-07-19 10:36 | PDOC.ERCMPRO ---
Care Management Progress Note 07/19-Dr. Silva requested assistance with Potassium being drawn and results called to Julia Chen at [facility]. Potassium to be drawn Thursday. This CM sent referral to [facility] for f/u to make sure they get results.
--- NOTE | 2018-07-19 10:38 | CMPROGNOTE_ITS ---
Care Management Progress Note 07/19-Dr. Silva requested assistance with Potassium being drawn and results called to Julia Chen at [facility]. Potassium to be drawn Thursday. This CM sent referral to [facility] for f/u to make sure they get results.
== END 2018-07-18 16:05 | disposition home or self-care (01) ==
PROVIDERS: Emergency Provider Emergency Medicine; PCP Nurse Practitioner Family
DX: K52.9 Noninfective gastroenteritis and colitis, unspecified (principal); R42 Dizziness and giddiness; E87.6 Hypokalemia
CPT/HCPCS: 36415; 80053; 87040; 93005; 96361; 96365; 99284; 83605; 83735; 84132; 85025; 86140; 93010; J3480

== ENCOUNTER 2018-07-20 13:37 | Outpatient (REF) | payer BC, SELFPAY ==
[2018-07-23 13:49] LABS: 6-monoacetylmorphine Not Detected ng/mL (Cutoff: 25); Amphetamines Negative ng/mL (Cutoff: 500); Barbiturates Negative ng/mL (Cutoff: 200); Benzodiazepines Negative ng/mL (Cutoff: 100); Buprenorphine Not Detected ng/mL (Cutoff: 5); Cocaine Negative ng/mL (Cutoff: 150); Codeine Not Detected ng/mL (Cutoff: 25); Comment Normal; Creatinine, U 188.5 mg/dL; Dihydrocodeine Not Detected ng/mL (Cutoff: 25); EDDP Not Detected ng/mL (Cutoff: 25); Fentanyl Not Detected ng/mL (Cutoff: 2); Hydrocodone Not Detected ng/mL (Cutoff: 25); Hydromorphone Not Detected ng/mL (Cutoff: 25); Hydromorphone-3-beta-glucuroni Not Detected ng/mL (Cutoff: 100); Meperidine Not Detected ng/mL (Cutoff: 25); Methadone Not Detected ng/mL (Cutoff: 25); Morphine Not Detected ng/mL (Cutoff: 25); N-desmethyltapentadol Not Detected ng/mL (Cutoff: 50); Naloxone Not Detected ng/mL (Cutoff: 25); Norbuprenorphine Not Detected ng/mL (Cutoff: 5); Norfentanyl Not Detected ng/mL (Cutoff: 2); Norhydrocodone Not Detected ng/mL (Cutoff: 25); Normeperidine Not Detected ng/mL (Cutoff: 25); Noroxycodone Not Detected ng/mL (Cutoff: 25); Noroxymorphone Not Detected ng/mL (Cutoff: 25); O-desmethyltramadol Not Detected ng/mL (Cutoff: 25); Phencyclidine Negative ng/mL (Cutoff: 25); Propoxyphene Not Detected ng/mL (Cutoff: 25); Specific Gravity 1.021; Tapentadol Not Detected ng/mL (Cutoff: 25); Tetrahydrocannabinol Negative ng/mL (Cutoff: 50); Tramadol Not Detected ng/mL (Cutoff: 25)
== END 2018-07-20 13:57 ==
LOC: LBN 13:37
PROVIDERS: PCP Nurse Practitioner Family; Visit Provider Nurse Practitioner Family
DX: Z79.891 Long term (current) use of opiate analgesic (principal)
CPT/HCPCS: 80307; 80364

== ENCOUNTER 2018-07-21 11:57 | Outpatient (CLI) | payer BC, SELFPAY | END 2018-07-21 12:17 | PROVIDERS: PCP Nurse Practitioner Family; Visit Provider Emergency Medicine | DX: K52.9 Noninfective gastroenteritis and colitis, unspecified (principal); E87.6 Hypokalemia | CPT/HCPCS: 36415; 84132 ==

== ENCOUNTER 2018-07-26 11:55 | Outpatient (REF) | payer BC, SELFPAY | END 2018-07-26 12:15 | LOC: NCHCN 11:55 | PROVIDERS: PCP Nurse Practitioner Family; Visit Provider Nurse Practitioner Family | DX: E87.6 Hypokalemia (principal) | CPT/HCPCS: 84132 ==

== ENCOUNTER 2018-08-12 13:16 | Outpatient (REF) | payer BC, SELFPAY ==
[2018-08-12 13:48] LABS: Anion Gap 10.9 mmol/L (3-11); BUN 19 mg/dL (7-18); CO2 24.1 mmol/L (21.0-32.0); Calcium 9.1 mg/dL (8.5-10.1); Chloride 104 mmol/L (98-107); Glucose 129 mg/dL (70-100); Potassium 3.7 mmol/L (3.5-5.1); Sodium 139 mmol/L (136-145)
== END 2018-08-12 13:36 ==
LOC: NCHCN 13:16
PROVIDERS: PCP Nurse Practitioner Family; Visit Provider Nurse Practitioner Family
DX: E87.6 Hypokalemia (principal)
CPT/HCPCS: 80048

== ENCOUNTER 2018-08-17 13:15 | Outpatient (CLI) | payer BC, SELFPAY ==
--- NOTE | 2018-08-17 06:00 | DI.RAD_ITS ---
SYMPTOMS/DIAGNOSIS: OSTEOARTHRITIS OF LEFT KNEE PAIN CLINIC JOINT INJECTION: Fluoroscopy Time: 37.1 sec Fluoroscopy was utilized by Dr. Swann during the performance of a left lower extremity injection. Please refer to the procedure report for complete details.
[2018-08-17 13:22] VITALS: BP 122/85; PULSE 97; RESP 17; TEMP 36.4; O2SAT 97
[2018-08-17 13:48] VITALS: PULSE 80; O2SAT 98
--- NOTE | 2018-08-17 13:53 | PDOC.PAIN ---
Pain Clinic Procedure Note Current Active Problems Problem Status Onset Primary osteoarthritis of knee Acute LEFT GENICULAR NERVE BLOCK Date of Service: August 17, 2018 Patient: Bernice Shore Provider: Philip Swann DO, MPH COMMENTS: Pre-procedure VAS to the LEFT knee is 8/10. Bernice Shore has been referred to the [facility] for LEFT genicular nerve block. Ms. Shore was interviewed and the medical record reviewed. There were no medical, pharmacologic, radiographic or other structural contraindications to attempting fluoroscopically guided LEFT genicular nerve block. Risks and potential side effects as well as potential benefit of the procedure were reviewed with Ms. Shore, and her voiced concerns were addressed. After I believed that the patient was completely informed, the printed consent form was signed. Standard time-out procedure was performed. Ms. Shore was placed in the supine position on the fluoroscopy table and automated blood pressure cuff and pulse oximeter applied. The skin entry points for approaching LEFT superolateral genicular nerve, the superomedial genicular nerve and the inferomedial genicular was identified under the most advantageous fluoroscopic view and marked. Following thorough Chlorhexadine preparation of the skin and draping, 1% lidocaine infiltration of the skin entry point and subcutaneous tissues was accomplished using a 1.5 25G needle. Next, the 3.5 25G spinal needle was advanced to os at the location of the specific nerve root using fluoroscopic guidance. Next, 1 cc of 1% Lidocaine was injected at each site. The needles were removed without difficulty. Ms. Shore's vital signs were stable throughout the procedure and were as recorded in the docflowsheet by the nursing staff. If given, dosages of intravenous drugs for anxiolysis and analgesia were documented in JUN. Follow up plans and appointments were discussed with the Ms. Malone. Post procedure instruction was given as documented in nursing documentation and having met discharge criteria, she was discharged from the [facility]. COMMENTS: No complications. Post-procedure VAS to the LEFT knee is 0/10. The patient will keep track of her LEFT knee pain over the next four hours. If she has sufficient pain relief, she will be a candidate for radiofrequency ablation at the same nerves. Curtis WJ1, Jeaneth SJ, Dejuan BrownG, Beni BrownG, Kaleb GONZALES, Agatha PH, Cal JW. Radiofrequency treatment relieves chronic knee osteoarthritis pain: a double-blind randomized controlled trial. Pain. 2010;152(3):481-7. doi: 10.1016/j.pain.2010.09.029. Gem S1, Abhay ON2, David Y3, ?zl?oliver P2, Earl U1, Brandon ?m?rl? I. Which one is more effective for the clinical treatment of chronic pain in knee osteoarthritis: radiofrequency neurotomy of the genicular nerves or intra-articular injection? Int J Rheum Dis. 2016 Nov 22. F/U with our office by phone tomorrow. I personally performed this entire procedure. Philip Swann DO, MPH Attending Physician CC: PCP
--- NOTE | 2018-08-17 13:59 | PDOC.PAIN_ITS ---
Pain Clinic Procedure Note Current Active Problems Problem Status Onset Primary osteoarthritis of knee Acute LEFT GENICULAR NERVE BLOCK Date of Service: August 17, 2018 Patient: Bernice Shore Provider: Philip Swann DO, MPH COMMENTS: Pre-procedure VAS to the LEFT knee is 8/10. Bernice Shore has been referred to the [facility] for LEFT genicular nerve block. Ms. Shore was interviewed and the medical record reviewed. There were no medical, pharmacologic, radiographic or other structural contraindications to attempting fluoroscopically guided LEFT genicular nerve block. Risks and potential side effects as well as potential benefit of the procedure were revi ewed with Ms. Shore, and her voiced concerns were addressed. After I believed that the patient was completely informed, the printed consent form was signed. Standard time-out procedure was performed. Ms. Shore was placed in the supine position on the fluoroscopy table and automated blood pressure cuff and pulse oximeter applied. The skin entry points for approaching LEFT superolateral genicular nerve, the superomedial genicular nerve and the inferomedial genicular was identified under the most advantageous fluoroscopic view and marked. Following thorough Chlorhexadine preparation of t he skin and draping, 1% lidocaine infiltration of the skin entry point and subcutaneous tissues was accomplished using a 1.5 25G needle. Next, the 3.5 25G spinal needle was advanced to os at the location of the specific nerve root using fluoroscopic guidance. Next, 1 cc of 1% Lidocaine was injected at each site. The needles were removed without difficulty. Ms. Shore's vital signs were stable throughout the procedure and were as recorded in the docflowsheet by the nursing staff. If given, dosages of intravenous drugs for anxiolysis and analgesia were documented in JUN. Follow up plans and appointments were discussed with the Ms. Malone. Post procedure instruction was given as documented in nursing documentation and having met discharge criteria, she was discharged from the [facility]. COMMENTS: No complications. Post-procedure VAS to the LEFT knee is 0/10. The patient will keep track of her LEFT knee pain over the next four hours. If she has sufficient pain relief, she will be a candidate for radiofrequency ablation at the same nerves. Curtis WJ1, Jeaneth SJ, Dejuan BrownG, Beni BrownG, Kaleb GONZALES, Agatha PH, Cal JW. Radiofrequency treatment relieves chronic knee osteoarthritis pain: a double-blind randomized controlled trial. Pain. 2010;152(3):481-7. doi: 10.1016/j.pain.2010.09.029. Gem S1, Abhay ON2, David Y3, ?zl?oliver P2, Earl U1, Brandon ?m?rl? I. Which one is more effective for the clinical treatment of chronic pain in knee osteoarthritis: radiofrequency neurotomy of the genicular nerves or intra- articular injection? Int J Rheum Dis. 2016 Nov 22. F/U with our office by phone tomorrow. I personally performed this entire procedure. Philip Swann DO, MPH Attending Physician CC: PCP
[2018-08-17] MEDS: Omnipaque 240 MG/ML 50 ML BTL IJ (14:01)
[2018-08-17] MEDS: Bupivacaine 0.5% Pres-Free 10 ML VIAL IJ (14:01)
== END 2018-08-17 13:35 ==
PROVIDERS: PCP Nurse Practitioner Family; Visit Provider Preventive Medicine Occupational Medicine
DX: M17.12 Unilateral primary osteoarthritis, left knee (principal)
CPT/HCPCS: 64450; 77002; Q9967

== ENCOUNTER 2018-09-07 07:43 | Outpatient (CLI) | payer BC, SELFPAY ==
[2018-09-07 07:50] VITALS: BP 114/81; PULSE 86; RESP 16; TEMP 36.8; O2SAT 95
[2018-09-07] MEDS: Midazolam 2 MG/2 ML VIAL IVP (08:34)
[2018-09-07] MEDS: fentaNYL 100 MCG/2 ML VIAL IVP ×4 (08:34→08:55)
[2018-09-07] MEDS: Lactated Ringers 1,000 ML 80 ML IV (08:36)
[2018-09-07 09:11] VITALS: BP 127/82; PULSE 68; RESP 15; O2SAT 100
--- NOTE | 2018-09-07 09:17 | PDOC.PAIN ---
Pain Clinic Procedure Note Current Active Problems Problem Status Onset Primary osteoarthritis of knee Acute LEFT GENICULAR NERVE RADIOFREQUENCY ABLATION WITH THE [employer] MACHINE Date of Service: 09/07/18 Patient: Bernice Shore Provider: Philip Swann DO, MPH COMMENTS: Previous Genicular nerve block to the LEFT knee with excellent pain relief temporarily. Ms. Shore has been referred to the [facility] for LEFT genicular nerve radiofrequency ablation. Ms. Shore was interviewed and the medical record reviewed. There were no medical, pharmacologic, radiographic or other structural contraindications to attempting fluoroscopically guided LEFT genicular nerve radiofrequency ablation. Risks and potential side effects as well as potential benefit of the procedure were reviewed with Ms. Shore, and her voiced concerns were addressed. After I believed that the patient was completely informed, the printed consent form was signed. Standard time-out procedure was performed. Ms. Shore was placed in the supine position on the fluoroscopy table and automated blood pressure cuff and pulse oximeter applied. The skin entry points for approaching LEFT superolateral genicular nerve, the superior, the superomedial genicular nerve and the inferomedial genicular was identified under the most advantageous fluoroscopic view and marked. Following thorough Chlorhexadine preparation of the skin and draping, 1% lidocaine infiltration of the skin entry point and subcutaneous tissues was accomplished using a 1.5 25G needle. Next, the 10 cm 18G RF Cannula with a 10 mm active tip was advanced to os at the location of the specific nerve roots (3) using fluoroscopic guidance. Next, sensory and motor testing was performed and no abnormal findings were found. Next, 1 cc of 2% Lidocaine was injected at each site. The lesion was then created with 80 degrees C for 90 seconds. 1/4 cc of Depomedrol (40 mg/cc) was then injected at each site followed by 2 cc of 0.5% Bupivacaine as the needle was withdrawn. The needles were removed without difficulty. Ms. Shore's vital signs were stable throughout the procedure and were as recorded in the docflowsheet by the nursing staff. If given, dosages of intravenous drugs for anxiolysis and analgesia were documented in MAR. Follow up plans and appointments were discussed with the Ms. Shore. Post procedure instruction was given as documented in nursing documentation and having met discharge criteria, she was discharged from the [facility]. COMMENTS: No complications. Curtis MartínezJ1, Jeaneth SJ, Dejuan BrownG, Beni BrownG, Kaleb GONZALES, Agatha PH, Cal JW. Radiofrequency treatment relieves chronic knee osteoarthritis pain: a double-blind randomized controlled trial. Pain. 2011 Jun;152(3):481-7. doi: 10.1016/j.pain.2010.09.029. Gem S1, Abhay ON2, David Y3, ?zl?lerden P2, Earl U1, Brandon ?m?rl? I. Which one is more effective for the clinical treatment of chronic pain in knee osteoarthritis: radiofrequency neurotomy of the genicular nerves or intra-articular injection? Int J Rheum Dis. 2016 Nov 22. F/U with our office as needed I personally performed this entire procedure. Philip Swann DO, MPH Attending Physician CC: [email or web address] @[email or web address]@
--- NOTE | 2018-09-07 09:20 | DI.RAD_ITS ---
SYMPTOM/DIAGNOSIS: LT KNEE PAIN C-ARM: Fluoroscopy Time: 81.4 seconds Fluoroscopy was utilized by Dr. Swann during treatment for left knee pain. Please refer to the procedure report for complete details.
--- NOTE | 2018-09-07 09:23 | PDOC.PAIN_ITS ---
Pain Clinic Procedure Note Current Active Problems Problem Status Onset Primary osteoarthritis of knee Acute LEFT GENICULAR NERVE RADIOFREQUENCY ABLATION WITH THE [employer] MACHINE Date of Service: 09/07/18 Patient: Bernice Shore Provider: Philip Swann DO, MPH COMMENTS: Previous Genicular nerve block to the LEFT knee with excellent pain relief temporarily. Ms. Shore has been referred to the [facility] for LEFT genicular nerve radiofrequency ablation. Ms. Shore was interviewed and the medical record reviewed. There were no medical, pharmacologic, radiographic or other structural contraindications to attempting fluoroscopically guided LEFT genicular nerve radiofrequency ablation. Risks and potential side effects as well as potential benefit of the procedure were reviewed with Ms. Shore, and her voiced concerns were addressed. After I believed that the patient was completely informed, the printed consent form was signed. Standard time-out procedure was performed. Ms. Shore was placed in the supine position on the fluoroscopy table and automated blood pressure cuff and pulse oximeter applied. The skin entry points for approaching LEFT superolateral genicular nerve, the superior, the superomedial genicular nerve and the inferomedial genicular was identified under the most advantageous fluoroscopic view and marked. Following thorough Chlorhexadine preparation of the skin and draping, 1% lidocaine infiltration of the skin entry point and subcutaneous tissues was accomplished using a 1.5 25G needle. Next, the 10 cm 18G RF Cannula with a 10 mm active tip was advanced to os at the location of the specific nerve roots (3) using fluoroscopic guidance. Next, sensory and motor testing was performed and no abnormal findings were found. Next, 1 cc of 2% Lidocaine was injected at each site. The lesion was then created with 80 degrees C for 90 seconds. 1/4 cc of Depomedrol (40 mg/cc) was then injected at each site followed by 2 cc of 0.5% Bupivacaine as the needle was withdrawn. The needles were removed without difficulty. Ms. Shore's vital signs were stable throughout the procedure and were as recorded in the docflowsheet by the nursing staff. If given, dosages of intravenous drugs for anxiolysis and analgesia were documented in MAR. Follow up plans and appointments were discussed with the Ms. Shore. Post procedure instruction was given as documented in nursing documentation and having met discharge criteria, she was discharged from the [facility]. COMMENTS: No complications. Curtis MartínezJ1, Jeaneth SJ, Dejuan BrownG, Beni BrownG, Kaleb GONZALES, Agatha PH, Cal JW. Radiofrequency treatment relieves chronic knee osteoarthritis pain: a double-blind randomized controlled trial. Pain. 2011 Jun;152(3):481-7. doi: 10.1016/j.pain.2010.09.029. Gem S1, Abhay ON2, David Y3, ?zl?lerden P2, Earl U1, Brandon ?m?rl? I. Which one is more effective for the clinical treatment of chronic pain in knee osteoarthritis: radiofrequency neurotomy of the genicular nerves or intra- articular injection? Int J Rheum Dis. 2016 Nov 22. F/U with our office as needed I personally performed this entire procedure. Philip Swann DO, MPH Attending Physician CC: @[email or web address]@ @[email or web address]@
[2018-09-07] MEDS: methylPREDNISolone ACETATE 40 MG/ML VIAL IJ (09:38)
[2018-09-07] MEDS: Lidocaine 2% Pres-Free 5 ML VIAL IJ (09:38)
[2018-09-07] MEDS: Bupivacaine 0.5% Pres-Free 10 ML VIAL IJ (09:39)
== END 2018-09-07 08:03 ==
PROVIDERS: PCP Nurse Practitioner Family; Visit Provider Preventive Medicine Occupational Medicine
DX: M17.12 Unilateral primary osteoarthritis, left knee (principal)
CPT/HCPCS: 64640 ×4; 77002; J1030; J2250; J3010

== ENCOUNTER 2018-09-08 14:40 | Emergency (ER) | payer BC, SELFPAY ==
[2018-09-08 14:45] VITALS: BP 134/93; PULSE 58; RESP 14; TEMP 36.6; O2SAT 95
--- NOTE | 2018-09-08 15:05 | DI.US_ITS ---
SYMPTOM/DIAGNOSIS: LEG PAIN, S/P PROCEDURE, ? DVT LEFT LOWER EXTREMITY ULTRASOUND: The study was carried out according to the usual protocol. The superficial, femoral, popliteal and proximal trifurcation in the superior portion of the leg are well seen. Good compressibility is noted throughout. Flow is demonstrated and flow augmentation was easily elicited with calf compression. SUMMARY: There is no evidence of DVT.
--- NOTE | 2018-09-08 15:11 | W.ED.GENAD ---
Discharge Plan Disposition Patient Disposition: HOME Condition: Stable Discharge Details Chief Complaint: Orthopedic Clinical Impression: Postoperative pain Primary Care Provider: Julia Chen ED Provider: Timi Schuster Home Meds and New Rx's Prescriptions: Continued tramadol 50 mg tablet 50 mg PO Q8H PRN (Reason: pain) Qty: 90 RF: 2 topiramate [Topamax] 100 mg tablet 100 mg PO QHS Qty: 30 RF: 5 eletriptan [Relpax] 40 MG tablet 40 mg PO PRN Qty: 6 RF: 5 trazodone 50 mg Tablet 100 mg PO HS RF: 0 lidocaine 5 % Adhesive Patch,Medicated 1 patch Transdermal DAILY RF: 0 nystatin 100,000 unit/gram Powder 1 applic topical TID PRNRF: 0 meloxicam 7.5 mg tablet 7.5 mg PO BID Qty: 60 RF: 6 acetaminophen [Mapap Extra Strength] 500 MG tablet 1 tab PO PRN PRNRF: 0 Nexplanon 68 MG implant RF: 0 omeprazole 40 mg Capsule,Delayed Release(Dr/Ec) 40 mg PO DAILY RF: 0 chlorthalidone 25 MG tablet 0.5 tab PO DAILY RF: 0 Discharge Instructions Instructions: Leg Pain (ED) Additional Instructions: Continue to take your pain medication as prescribed and follow-up with your primary care provider or parent pain clinic as needed for reassessment. Return to the emergency department for any new or significant worsening of symptoms or change in your symptoms you are concerned about. Referrals: Julia Chen [Primary Care Provider] - Discharge Data Discharge Date/Time-TO BE ENTERED AT DEPARTURE: 09/08/18 16:11 Medical Decision Making Patient presenting the emergency department for chief complaint of left leg pain. Patient states that she had a nerve ablation procedure performed on her left leg yesterday and after the procedure she noted left leg pain. Patient states intermittent burning sensation from her thigh down to her foot that seems to come and go. Patient denies any exacerbating factors to this beyond the procedure she had performed yesterday. Patient denies fever chills, leg swelling, decreased sensation of the lower extremity or color change. Physical exam shows postoperative markings and slight ecchymosis and some swelling to the knee otherwise patient does have mild medial thigh pain that she states she thinks is more muscular, normal pedal pulses, otherwise unremarkable exam of the left lower extremity and size seems equal bilateral. Negative DVT study. Feel this is more than likely postoperative/postprocedural in nature. Patient was encouraged to use [id number] pain medications or her normally prescribed pain medications as needed for discomfort. Otherwise given reassuring exam I feel the patient can be safely discharged to follow-up with primary care or pain clinic. HPI General Mode of arrival: ambulatory. Date/Time Provider Initiated Documentation: 09/08/18 14:45. Limitations to Documentation: no limitations. Information obtained by: patient and RN notes reviewed. History of Present Illness 37 year old F presents to the emergency department with the chief complaint of Left leg pain, described as moderate, Quality is described as burning and other (Denies current pain), and is localized to the left and lower extremity. Patient distal. Patient started experiencing this day(s) (1) and it has been intermittent. No relieving factors improve symptom(s), No exacerbating factors reported . Patient did receive the following treatments prior to arrival, none Related Data Home Medications Medication Instructions Recorded Confirmed acetaminophen [Mapap Extra 1 tab PO PRN PRN 09/06/14 09/08/18 Strength] chlorthalidone 0.5 tab PO DAILY 03/05/17 09/08/18 Nexplanon 06/10/17 08/26/18 eletriptan [Relpax] 40 mg PO PRN #6 tab-cap 08/05/17 09/08/18 omeprazole 40 mg PO DAILY 12/23/17 09/08/18 tramadol 50 mg tablet 50 mg PO Q8H PRN #90 tab 06/17/18 09/08/18 lidocaine 1 patch TRANSDERMAL DAILY 07/16/18 09/08/18 nystatin 1 applic TOPICAL TID PRN 07/16/18 09/08/18 trazodone 100 mg PO HS 07/16/18 09/08/18 meloxicam 7.5 mg tablet 7.5 mg PO BID #60 tab 07/20/18 09/08/18 topiramate 100 mg tablet 100 mg PO QHS #30 tab 08/26/18 09/08/18 Previous Rx's Medication Instructions Recorded eletriptan [Relpax] 40 mg PO PRN #6 tab-cap 08/05/17 tramadol 50 mg tablet 50 mg PO Q8H PRN #90 tab 06/17/18 meloxicam 7.5 mg tablet 7.5 mg PO BID #60 tab 07/20/18 topiramate 100 mg tablet 100 mg PO QHS #30 tab 08/26/18 Allergies Allergy/AdvReac Type Severity Reaction Status Date / Time guaifenesin Allergy Intermediate Unverified 09/08/18 14:50 varenicline tartrate Allergy Mild Itching Verified 09/08/18 14:50 [From Chantix] Sulfa (Sulfonamide AdvReac Severe vomiting Verified 09/08/18 14:50 Antibiotics) gabapentin AdvReac Intermediate muscle Verified 09/08/18 14:50 spasm NSAIDS (Non-Steroidal AdvReac Intermediate GI Symptoms Verified 09/08/18 14:50 Anti-Inflamma zolpidem tartrate AdvReac Intermediate sleep walks Verified 09/08/18 14:50 [From Ambien] trimethoprim [From Bactrim] AdvReac Mild Nausea Verified 09/08/18 14:50 polyethylene glycol 3350 AdvReac GI upset Verified 09/08/18 14:50 [From Miralax] burdocks Allergy Mild hives, Uncoded 09/08/18 14:50 itching naldecon Allergy unknown Uncoded 09/08/18 14:50 General Stated Complaint: Orthopedic LATESHA: 3 Review of Systems Cardiovascular Denies chest pain, Denies pedal edema, Denies irregular heart rhythm, Denies claudication, Denies leg edema, Denies lightheadedness and Denies dyspnea Respiratory Denies dyspnea Gastrointestinal Denies abdominal pain Musculoskeletal Reports as per HPI [facility] Medical History GERD (gastroesophageal reflux disease) Depression (Chronic) Migraine headache without aura (Chronic) Migraine headache with aura (Chronic) Gastric ulcer (Chronic) PCOS (polycystic ovarian syndrome) (Resolved) C. difficile colitis (Resolved) CMV (cytomegalovirus) infection (Resolved) Migraine (Resolved) Abnormal Pap smear of cervix BMI 39.0-39.9,adult Contraceptive management Diverticulitis large intestine Tobacco use Surgical History Status post arthroscopy of left knee (Acute) Arthroplasty of knee (~02/2013) Colonoscopy - MAC (10/06/17) EGD - MAC (03/21/16) Oophrectomy, Right (~2008) egd (07/13/12) lazik surgery (01/28/12) Family History Father Essential hypertension Anxiety Depression Heart disease Hyperlipidemia Myocardial infarction COPD (chronic obstructive pulmonary disease) Diverticular disease of colon Asthma Mother Depression Diverticular disease of colon Grandfather Diabetes Alcohol abuse Personal history of malignant neoplasm Heart disease Brother Sleep apnea Essential hypertension Social History Smoking/Tobacco Use Status: Former Tobacco Use Alcohol Intake: never Drug use: Occasionally Substance use type: marijuana Household members: children Housing: apartment Number of Children: 1 current occupation: [employer] What is your relationship status?: Panel score (0-1 are the most socially isolated patients): 0 What type of physical activity do you participate in: none Do you feel safe at home: Yes Do you feel safe in your relationship?: Yes Additional Social history: She has one daughter and two stepchildren, lives with her partner Geovanni. 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 Female Reproductive History Menstrual control method: implanted History History 1 Para 1 Hx # Term Pregnancies Multiple births Hx # Pregnancies Ectopic pregnancies AB induced Hx Number of Living Children AB spontaneous Exam Const General: cooperative, comfortable and no acute distress Nutritional Appearance: overweight Orientation: alert, awake and oriented x3 Resp Effort & Inspection: normal respiratory effort and able to speak in complete sentences Auscultation: clear to auscultation bilaterally Cardio Rate: regular rate Rhythm: regular rhythm Heart Sounds: S1 normal and S2 normal Pulses: normal peripheral pulses Extrem General: normal exam except as noted Left lower extremity: full ROM, normal capillary refill, no joint enlargement, hip/thigh (Postoperative markings and ecchymosis from procedure) Details: tenderness (mild) Location: of the mid upper leg Location: medially and normal ROM; no swelling, no deformity and no unusual warmth, knee Details: no tenderness and lower leg Details: no edema; no tenderness, no localized swelling and no palpable cords; no edema Course Vital Signs Temperature 36.6 C 09/08/18 14:45 Pulse 58 L 09/08/18 14:45 Respiratory Rate 14 09/08/18 14:45 Blood Pressure 134/93 H 09/08/18 14:45 Pulse Oximetry 95 09/08/18 14:45 Temperature 36.6 C 09/08/18 14:45 Temperature Source Temporal Artery Scan 09/08/18 14:45 Pulse 58 L 09/08/18 14:45 Respiratory Rate 14 09/08/18 14:45 Respiratory Effort Non-Labored 09/08/18 14:48 Blood Pressure 134/93 H 09/08/18 14:45 Blood Pressure Position Sitting 09/08/18 14:45 Pulse Oximetry 95 09/08/18 14:45 Oxygen Delivery Method Room Air 09/08/18 14:45 Oxygen Flow Rate 0 09/08/18 14:45 Pain Level 3 09/08/18 14:45
--- NOTE | 2018-09-08 15:19 | ED.GENADUL_ITS ---
Discharge Plan Disposition Patient Disposition: HOME Condition: Stable Discharge Details Chief Complaint: Orthopedic Clinical Impression: Postoperative pain Primary Care Provider: Julia Chen ED Provider: Timi Schuster Home Meds and New Rx's Prescriptions: Continued tramadol 50 mg tablet 50 mg PO Q8H PRN (Reason: pain) Qty: 90 RF: 2 topiramate [Topamax] 100 mg tablet 100 mg PO QHS Qty: 30 RF: 5 eletriptan [Relpax] 40 MG tablet 40 mg PO PRN Qty: 6 RF: 5 trazodone 50 mg Tablet 100 mg PO HS RF: 0 lidocaine 5 % Adhesive Patch,Medicated 1 patch Transdermal DAILY RF: 0 nystatin 100,000 unit/gram Powder 1 applic topical TID PRNRF: 0 meloxicam 7.5 mg tablet 7.5 mg PO BID Qty: 60 RF: 6 acetaminophen [Mapap Extra Strength] 500 MG tablet 1 tab PO PRN PRNRF: 0 Nexplanon 68 MG implant RF: 0 omeprazole 40 mg Capsule,Delayed Release(Dr/Ec) 40 mg PO DAILY RF: 0 chlorthalidone 25 MG tablet 0.5 tab PO DAILY RF: 0 Discharge Instructions Instructions: Leg Pain (ED) Additional Instructions: Continue to take your pain medication as prescribed and follow-up with your primary care provider or parent pain clinic as needed for reassessment. Return to the emergency department for any new or significant worsening of symptoms or change in your symptoms you are concerned about. Referrals: Julia Chen [Primary Care Provider] - Discharge Data Discharge Date/Time-TO BE ENTERED AT DEPARTURE: 09/08/18 16:11 Medical Decision Making Patient presenting the emergency department for chief complaint of left leg pain. Patient states that she had a nerve ablation procedure performed on her left leg yesterday and after the procedure she noted left leg pain. Patient states intermittent burning sensation from her thigh down to her foot that seems to come and go. Patient denies any exacerbating factors to this beyond the procedure she had performed yesterday. Patient denies fever chills, leg swelling, decreased sensation of the lower extremity or color change. Physical exam shows postoperative markings and slight ecchymosis and some swelling to the knee otherwise patient does have mild medial thigh pain that she states she thinks is more muscular, normal pedal pulses, otherwise unremarkable exam of the left lower extremity and size seems equal bilateral. Negative DVT study. Feel this is more than likely postoperative/postprocedural in nature. Patient was encouraged to use [id number] pain medications or her normally prescribed pain medications as needed for discomfort. Otherwise given reassuring exam I feel the patient can be safely discharged to follow-up with primary care or pain clinic. HPI General Mode of arrival: ambulatory . Date/Time Provider Initiated Documentation: 09/08/18 14:45 . Limitations to Documentation: no limitations . Information obtained by: patient and RN notes reviewed . History of Present Illness 37 year old F presents to the emergency department with the chief complaint of Left leg pain, described as moderate, Quality is described as burning and other (Denies current pain), and is localized to the left and lower extremity. Patient distal. Patient started experiencing this day(s) (1) and it has been intermittent. No relieving factors improve symptom(s), No exacerbating factors reported . Patient did receive the following treatments prior to arrival, none Related Data Home Medications Medication Instructions Recorded Confirmed acetaminophen [Mapap Extra 1 tab PO PRN PRN 09/06/14 09/08/18 Strength] chlorthalidone 0.5 tab PO DAILY 03/05/17 09/08/18 Nexplanon 06/10/17 08/26/18 eletriptan [Relpax] 40 mg PO PRN #6 tab-cap 08/05/17 09/08/18 omeprazole 40 mg PO DAILY 12/23/17 09/08/18 tramadol 50 mg tablet 50 mg PO Q8H PRN #90 tab 06/17/18 09/08/18 lidocaine 1 patch TRANSDERMAL DAILY 07/16/18 09/08/18 nystatin 1 applic TOPICAL TID PRN 07/16/18 09/08/18 trazodone 100 mg PO HS 07/16/18 09/08/18 meloxicam 7.5 mg tablet 7.5 mg PO BID #60 tab 07/20/18 09/08/18 topiramate 100 mg tablet 100 mg PO QHS #30 tab 08/26/18 09/08/18 Previous Rx's Medication Instructions Recorded eletriptan [Relpax] 40 mg PO PRN #6 tab-cap 08/05/17 tramadol 50 mg tablet 50 mg PO Q8H PRN #90 tab 06/17/18 meloxicam 7.5 mg tablet 7.5 mg PO BID #60 tab 07/20/18 topiramate 100 mg tablet 100 mg PO QHS #30 tab 08/26/18 Allergies Allergy/AdvReac Type Severity Reaction Status Date / Time guaifenesin Allergy Intermediate Unverified 09/08/18 14:50 varenicline tartrate Allergy Mild Itching Verified 09/08/18 14:50 [From Chantix] Sulfa (Sulfonamide AdvReac Severe vomiting Verified 09/08/18 14:50 Antibiotics) gabapentin AdvReac Intermediate muscle Verified 09/08/18 14:50 spasm NSAIDS (Non-Steroidal AdvReac Intermediate GI Symptoms Verified 09/08/18 14:50 Anti-Inflamma zolpidem tartrate AdvReac Intermediate sleep walks Verified 09/08/18 14:50 [From Ambien] trimethoprim [From Bactrim] AdvReac Mild Nausea Verified 09/08/18 14:50 polyethylene glycol 3350 AdvReac GI upset Verified 09/08/18 14:50 [From Miralax] burdocks Allergy Mild hives, Uncoded 09/08/18 14:50 itching naldecon Allergy unknown Uncoded 09/08/18 14:50 General Stated Complaint: Orthopedic LATESHA: 3 Review of Systems Cardiovascular Denies chest pain, Denies pedal edema, Denies irregular heart rhythm, Denies claudication, Denies leg edema, Denies lightheadedness and Denies dyspnea Respiratory Denies dyspnea Gastrointestinal Denies abdominal pain Musculoskeletal Reports as per HPI [facility] Medical History GERD (gastroesophageal reflux disease) Depression (Chronic) Migraine headache without aura (Chronic) Migraine headache with aura (Chronic) Gastric ulcer (Chronic) PCOS (polycystic ovarian syndrome) (Resolved) C. difficile colitis (Resolved) CMV (cytomegalovirus) infection (Resolved) Migraine (Resolved) Abnormal Pap smear of cervix BMI 39.0-39.9,adult Contraceptive management Diverticulitis large intestine Tobacco use Surgical History Status post arthroscopy of left knee (Acute) Arthroplasty of knee (~02/2013) Colonoscopy - MAC (10/06/17) EGD - MAC (03/21/16) Oophrectomy, Right (~2008) egd (07/13/12) lazik surgery (01/28/12) Family History Father Essential hypertension Anxiety Depression Heart disease Hyperlipidemia Myocardial infarction COPD (chronic obstructive pulmonary disease) Diverticular disease of colon Asthma Mother Depression Diverticular disease of colon Grandfather Diabetes Alcohol abuse Personal history of malignant neoplasm Heart disease Brother Sleep apnea Essential hypertension Social History Smoking/Tobacco Use Status: Former Tobacco Use Alcohol Intake: never Drug use: Occasionally Substance use type: marijuana Household members: children Housing: apartment Number of Children: 1 current occupation: [employer] What is your relationship status?: Panel score (0-1 are the most socially isolated patients): 0 What type of physical activity do you participate in: none Do you feel safe at home: Yes Do you feel safe in your relationship?: Yes Additional Social history: She has one daughter and two stepchildren, lives with her partner Geovanni. 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[place] Female Reproductive History Menstrual control method: implanted History History 1 Para 1 Hx # Term Pregnancies Multiple births Hx # Pregnancies Ectopic pregnancies AB induced Hx Number of Living Children AB spontaneous Exam Const General: cooperative, comfortable and no acute distress Nutritional Appearance: overweight Orientation: alert, awake and oriented x3 Resp Effort & Inspection: normal respiratory effort and able to speak in complete sentences Auscultation: clear to auscultation bilaterally Cardio Rate: regular rate Rhythm: regular rhythm Heart Sounds: S1 normal and S2 normal Pulses: normal peripheral pulses Extrem General: normal exam except as noted Left lower extremity: full ROM, normal capillary refill, no joint enlargement, hip/thigh (Postoperative markings and ecchymosis from procedure) Details: tenderness (mild) Location: of the mid upper leg Location: medially and normal ROM; no swelling, no deformity and no unusual warmth, knee Details: no tenderness and lower leg Details: no edema; no tenderness, no localized swelling and no palpable cords; no edema Course Vital Signs Temperature 36.6 C 09/08/18 14:45 Pulse 58 L 09/08/18 14:45 Respiratory Rate 14 09/08/18 14:45 Blood Pressure 134/93 H 09/08/18 14:45 Pulse Oximetry 95 09/08/18 14:45 Temperature 36.6 C 09/08/18 14:45 Temperature Source Temporal Artery Scan 09/08/18 14:45 Pulse 58 L 09/08/18 14:45 Respiratory Rate 14 09/08/18 14:45 Respiratory Effort Non-Labored 09/08/18 14:48 Blood Pressure 134/93 H 09/08/18 14:45 Blood Pressure Position Sitting 09/08/18 14:45 Pulse Oximetry 95 09/08/18 14:45 Oxygen Delivery Method Room Air 09/08/18 14:45 Oxygen Flow Rate 0 09/08/18 14:45 Pain Level 3 09/08/18 14:45
--- NOTE | 2018-09-08 16:06 | DI.VRAD_ITS ---
EXAM: US Duplex Left Lower Extremity Veins, Limited EXAM DATE/TIME: 09/08/2018 3:50 PM CLINICAL HISTORY: 37 years old, female; Pain; Leg, lower; Left; Prior surgery; Surgery date: Post-operative (0-2 days); Surgery type: Per PT 1 day S/P vein ablation TECHNIQUE: Imaging protocol: Real-time Duplex ultrasound of the Left Lower Extremity with 2-D shultz scale, color Doppler flow and spectral waveform analysis. Limited exam focused on the left lower extremity veins. COMPARISON: No relevant prior studies available. FINDINGS: Left deep veins: Unremarkable. The common femoral, femoral, proximal profunda femoral and popliteal veins are patent without thrombus. Normal Doppler waveforms. Normal compressibility and/or augmentation response. Left superficial veins: Unremarkable. Saphenofemoral junction is patent without thrombus. Soft tissues: Unremarkable. IMPRESSION: No acute findings. No evidence of deep vein thrombosis. Dictated and Authenticated by: Gold Fritz MD. Ordering:DWAINE Capellan MD
[2018-09-08 16:11] VITALS: BP 134/93; PULSE 58; RESP 14; TEMP 36.6; O2SAT 95
== END 2018-09-08 16:11 | disposition home or self-care (01) ==
PROVIDERS: Emergency Provider Nurse Practitioner Family; PCP Nurse Practitioner Family
DX: G89.18 Other acute postprocedural pain (principal)
CPT/HCPCS: 99282; 93971

== ENCOUNTER 2019-02-23 00:41 | Outpatient (CLI) | payer BC, SELFPAY ==
--- NOTE | 2019-02-23 09:55 | DI.RAD_ITS ---
EXAM: RF UPPER GI SERIES CLINICAL HISTORY: Substernal pain, gastroesophageal reflux disease, K21.9 TECHNIQUE: 2D and realtime digital imaging was performed. CONTRAST MATERIAL: Oral barium contrast was administered. COMPARISON: No exams were available for comparison FINDINGS: Initial plain film of the abdomen reveals normal stool and air pattern. No abnormal calcifications ar e seen. Esophagus: The esophagus is patent with no evidence for erosions, fold thickening, strictures, or ma sses. With regards to the motility, there is a normal primary stripping wave. There is a small hiata l hernia. Gastroesophageal reflux was noted during the examination. Stomach: The stomach shows no gastric fold thickening, erosions, or masses. Duodenal Bulb: Shows no gastric fold thickening, erosions, or masses. IMPRESSION: Findings of a small hiatal hernia and gastroesophageal reflux. FLUORO TIME: 2 minutes and 2 seconds
[2019-02-23] MEDS: Barium Sulfate 60% W/V 355 ML BTL PO (10:06)
[2019-02-23] MEDS: Simethicone/Sod Bicarb/Cit Ac, 4 gram PACKET 1 PACKET PO (10:07)
== END 2019-02-23 01:01 ==
PROVIDERS: PCP Nurse Practitioner Family; Visit Provider Surgery
DX: R07.2 Precordial pain (principal); K21.9 Gastro-esophageal reflux disease without esophagitis; K44.9 Diaphragmatic hernia without obstruction or gangrene
CPT/HCPCS: 74247; J3490

== ENCOUNTER 2019-05-19 07:51 | Outpatient (CLI) | payer BC, SELFPAY ==
[2019-05-19 07:59] VITALS: BP 126/82; PULSE 76; RESP 20; TEMP 37.1; O2SAT 98
[2019-05-19] MEDS: Lactated Ringers 1,000 ML 80 ML IV (08:23)
[2019-05-19] MEDS: Midazolam 2 MG/2 ML VIAL IVP (08:36)
[2019-05-19] MEDS: fentaNYL 100 MCG/2 ML VIAL IVP ×3 (08:36→08:55)
[2019-05-19] MEDS: Ondansetron 4 MG/2 ML VIAL IVP (08:36)
[2019-05-19] MEDS: Normal Saline Flush 10 ML SYR (08:55)
[2019-05-19 09:02] VITALS: BP 100/69; PULSE 68; RESP 17; O2SAT 97
--- NOTE | 2019-05-19 09:09 | PDOC.PAIN_ITS ---
Pain Clinic Procedure Note Procedure Note Procedure Note: [Right/Left] Knee Radiofrequency with Coolief Machine PROCEDURE NOTE Date of Service: May 19, 2019 Patient: FITZ AMOR Provider: Philip Swann DO, MPH Pre Operative Diagnosis: Left knee osteoarthritis Post Operative Diagnosis: Same PROCEDURE: 1. Superolateral genicular branch from the vastus lateralis 2. Superomedial genicular branch from the vastus medialis 3. Inferomedial genicular branch from the saphenous nerve 4. Terminal branch of the nerve vastus intermedius FITZ AMOR was brought into brought to the procedure room and placed on the exam table in a comfortable supine position. The place for needle placement was obtained by manual palpation with radiographic confirmation. The sterile field was prepared by chloroprep and sterile drapes. Local anesthesia superficial and deep was provided by local infiltration of 2% Lidocaine. A 17g 75 mm radiofrequency introducer needle with a 4mm active tip was placed overlying the left knee joint and using fluoroscopic guidance the needle was advanced to a bony endpoint on the superiolateral portion of the femoral condyle of the [Right/left knee]. A second needle was advanced to a bony endpoint on the superiomedial portion of the femoral condyle. A third needle was then placed over the inferiomedial portion of the tibial condyle until a bony endpoint was met. Attempted aspiration yielded no blood. Lateral x-ray views showed all the needles at 50% depth of the femur and tibia. Motor stimulation was tested ad 2.0 volts with no leg movement. Images were saved in AP and lateral. The area of each nerve branch was anesthetized with 2 cc of 2% Lidocaine. Then a radio frequency ablation of each of the geniculate nerves were done at 80 degrees Celsius for 2 minutes and 30 seconds each. A mixture consisting of 1/4 cc of Depomedrol (40 mg/cc) and 1 cc of Bupivacaine (0.5%) was slowly injected. The needles were withdrawn. POST PROCEDURE EVALUATION: No complications IMPRESSION: 1. Successful ablation. VAS after the procedure was 0-1/10. Follow up plans and appointments were discussed with the FITZ . Post procedure instruction was given as documented in nursing documentation and having met discharge criteria, FITZ was [facility]. COMMENTS: No complications. F/U with our office as needed. I personally performed this entire procedure. Philip Swann DO, MPH Attending Physician
[2019-05-19] MEDS: Lidocaine 2% Pres-Free 5 ML VIAL IJ (09:17)
[2019-05-19] MEDS: methylPREDNISolone ACETATE 40 MG/ML VIAL IJ (09:18)
[2019-05-19] MEDS: Bupivacaine 0.5% Pres-Free 10 ML VIAL IJ (09:18)
--- NOTE | 2019-05-19 09:38 | DI.RAD_ITS ---
EXAM: XR PAIN CLINIC FLUORO JOINT IN CLINICAL HISTORY: Dx: Osteoarthritis of left knee TECHNIQUE: 2D and realtime digital imaging was performed. COMPARISON: No exams were available for comparison FINDINGS: C-arm fluoroscopy was utilized by Dr. Swann. Please see Dr. Swann's procedure note. Fluoro time 77.1 seconds.
== END 2019-05-19 08:11 ==
PROVIDERS: PCP Nurse Practitioner Family; Visit Provider Preventive Medicine Occupational Medicine
DX: M17.12 Unilateral primary osteoarthritis, left knee (principal)
CPT/HCPCS: 64640; 77002; J1030; J2250; J2405; J3010

== ENCOUNTER 2019-08-24 17:03 | Outpatient (REF) | payer BC, SELFPAY ==
[2019-08-25 16:42] LABS: Rheumatoid Factor <8.6 IU/mL (<12.0)
[2019-08-26 08:45] LABS: Cyclic Citrullinated Peptide <2.5 U/mL (<5.0)
[2019-08-26 09:42] LABS: Lyme Ab w Rflx to Lyme Confirm Negative (Negative)
[2019-08-26 15:30] LABS: ANA Interpretation Positive (Negative); ANA Titer Pattern 1:160 Speckled
[2019-08-29 23:24] LABS: Anaplasma phagocytophilum Negative (Negative); B. miyamotoi PCR Negative (Negative); Babesia divergens/MO-1 Negative (Negative); Babesia duncani Negative (Negative); Babesia microti Negative (Negative); Ehrlichia chaffeensis Negative (Negative); Ehrlichia ewingii/canis Negative (Negative); Ehrlichia muris eauclairensis Negative (Negative)
== END 2019-08-24 17:23 ==
LOC: NCHCN 17:03
PROVIDERS: PCP Nurse Practitioner Family; Visit Provider Physician Assistant
DX: F41.8 Other specified anxiety disorders (principal); M25.50 Pain in unspecified joint
CPT/HCPCS: 86200; 87798; 86038; 86431; 86618

== ENCOUNTER 2019-08-31 12:49 | Outpatient (CLI) | payer BC, SELFPAY ==
[2019-09-01 12:33] LABS: dsDNA Ab, IgG <12.3 IU/mL (<30.0)
== END 2019-08-31 13:09 ==
LOC: LBO 12:49 → NCHCO 09-15 14:54
PROVIDERS: PCP Nurse Practitioner Family; Visit Provider Family Medicine
DX: M25.50 Pain in unspecified joint (principal)
CPT/HCPCS: 36415; 86225

== ENCOUNTER 2019-09-28 14:57 | Emergency (ER) | payer BC, SELFPAY ==
[2019-09-28] VITALS (40 sets, daily range): BP systolic 103–144; BP diastolic 67–118; PULSE 83–110; RESP 13–29; TEMP 36.8; O2SAT 95–100
--- NOTE | 2019-09-28 15:11 | W.ED.GENAD ---
Discharge Plan Disposition Patient Disposition: HOME Condition: Improving Discharge Details Chief Complaint: Abd Prob Clinical Impression: Epigastric abdominal pain, Hypokalemia Primary Care Provider: Julia Chen ED Provider: Radha Patterson Home Meds and New Rx's Prescriptions: Continued tramadol 50 mg tablet 50 mg PO Q8H PRN (Reason: pain) Qty: 90 RF: 2 oxybutynin chloride 10 mg tablet extended release 24hr 10 mg PO DAILY RF: 0 sucralfate [Carafate] 1 gram tablet 1 gm PO QID PRN Qty: 30 RF: 2 eletriptan [Relpax] 40 MG tablet 40 mg PO PRN Qty: 6 RF: 5 trazodone 50 mg Tablet 100 mg PO HS RF: 0 lidocaine 5 % Adhesive Patch,Medicated 1 patch Transdermal DAILY RF: 0 nystatin 100,000 unit/gram Powder 1 applic topical TID PRNRF: 0 topiramate [Topamax] 100 mg tablet 100 mg PO QHS Qty: 30 RF: 5 meloxicam 7.5 mg tablet 7.5 mg PO BID Qty: 60 RF: 1 acetaminophen [Mapap Extra Strength] 500 MG tablet 1 tab PO PRN PRNRF: 0 Nexplanon 68 MG implant 1 implant subdermal DIRECTED RF: 0 omeprazole 40 mg Capsule,Delayed Release(Dr/Ec) 40 mg PO DAILY RF: 0 chlorthalidone 25 MG tablet 0.5 tab PO DAILY RF: 0 Discharge Instructions Instructions: Hypokalemia (ED), Epigastric Pain (ED) Additional Instructions: Drink plenty of fluids and get plenty of rest. You were given information about how to supplement potassium in your diet. Take your pain medication that you have at home as needed and directed. Follow-up with general surgery for further evaluation including possible upper endoscopy. Return to the emergency department if you develop any worsening or new concerning symptoms such as fever, vomiting, worsening abdominal pain. Referrals: Orquidea Greer MD [ [facility] STAFF PHYSICIAN] - Discharge Data Discharge Physician: Radha Patterson Medical Decision Making 4415 -- 38-year-old female with a history of PCOS, migraines, GERD presents for nausea and intermittent sharp epigastric and right upper quadrant abdominal pain since 10 AM this morning. EKG done on arrival due to question of possible chest pain and notes a rate of 103, sinus, less than [address] depression noted in V3, V4, V5 but no acute ST elevation. Patient denies any chest pain on my examination. She has significant tenderness to palpation in epigastric region and right upper quadrant. Differential diagnosis includes cholelithiasis, acute cholecystitis, gastritis, PUD. History and presentation not consistent with ACS. Will obtain screening labs including troponin, gallbladder ultrasound, give Tylenol and fluids and reassess. Labs and imaging reviewed. Normal white blood cell count. Potassium 2.7, likely attributed to chlorthalidone. Troponin negative. Lipase negative. UCG negative. Gallbladder ultrasound negative. 1644 -- Patient also given GI cocktail and Pepcid. Symptoms improved but now complaining of some nausea. Will replete potassium with 40 mEq p.o. and 20 mEq IV and obtain CT chest abdomen and pelvis. 1899 --CT negative for acute findings. Patient feels much better and is requesting to go home. She is advised to supplement potassium in her diet. Discussed that as labs and imaging negative for acute findings, gastric source may be the cause of her symptoms. She already takes Carafate and omeprazole. She is advised to consider an elimination diet and follow-up with surgery for further evaluation and consideration for upper endoscopy. A repeat EKG was done which noted resolution of the ST depressions noted in initial EKG. She only had complaint of tender epigastric pain and denied any chest pain or shortness of breath. Patient placed on surgery follow-up list. Usual and customary return precautions given prior to discharge. Medical Records Medical records reviewed: Yes I reviewed the patient's medical records. Imaging Data Radiologic Study: Radiologist's impression: US Abdomen Limited, Right Upper Quadrant Exam date and time: 09/28/2019 3:41 PM Age: 38 years old Clinical indication: Abdominal pain; Localized; Right upper quadrant (ruq) TECHNIQUE: Imaging protocol: Real-time ultrasound of the abdomen with image documentation. Examination was focused on the right upper quadrant. COMPARISON: NM ABDOMEN ULTRASOUND (P) 12/19/2016 3:30 PM FINDINGS: Liver: Normal. No masses. Gallbladder: Normal. No gallstones. There is no gallbladder wall thickening. Common bile duct: Normal. No stones. No dilation. Pancreas: Visualized pancreas is unremarkable. IMPRESSION: No acute findings. CT Angiography Chest With Contrast Exam date and time: 09/28/2019 5:39 PM Age: 38 years old Clinical indication: Chest pain; Other: Back pain; Abdominal pain; Localized; Right upper quadrant (ruq) TECHNIQUE: Imaging protocol: Computed tomographic angiography of the chest with intravenous contrast. 3D rendering: MIP and/or 3D reconstructed images were created by the technologist. Radiation optimization: All CT scans at this facility use at least one of these dose optimization techniques: automated exposure control; mA and/or kV adjustment per patient size (includes targeted exams where dose is matched to clinical indication); or iterative reconstruction. Contrast material: OMNIPAQUE 350; Contrast volume: 125 ml; Contrast route: INTRAVENOUS (IV); COMPARISON: CR CHEST 2 VIEWS PA,LAT 12/20/2016 1:28 PM FINDINGS: Pulmonary arteries: Normal. No pulmonary emboli. Aorta: Unremarkable. No aortic aneurysm. No aortic dissection. Lungs: Unremarkable. No consolidation. No masses. Pleural space: Unremarkable. No pneumothorax. No pleural effusion. Heart: Unremarkable. No cardiomegaly. No pericardial effusion. Lymph nodes: Unremarkable. No enlarged lymph nodes. Bones/joints: Unremarkable. No acute fracture. Soft tissues: Unremarkable. IMPRESSION: No acute findings. CT Angiography Abdomen With Contrast Exam date and time: 09/28/2019 5:39 PM Age: 38 years old Clinical indication: Chest pain; Other: Back pain; Abdominal pain; Localized; Right upper quadrant (ruq) TECHNIQUE: Imaging protocol: Computed tomographic angiography images of the abdomen with intravenous contrast material. 3D rendering: MIP and/or 3D reconstructed images were created by the technologist. Radiation optimization: All CT scans at this facility use at least one of these dose optimization techniques: automated exposure control; mA and/or kV adjustment per patient size (includes targeted exams where dose is matched to clinical indication); or iterative reconstruction. COMPARISON: CR CHEST 2 VIEWS PA,LAT 12/20/2016 1:28 PM FINDINGS: Aorta: No aortic aneurysm. No aortic dissection. Celiac trunk and mesenteric arteries: No occlusion or significant stenosis. Renal arteries: No occlusion or significant stenosis. Liver: Normal. No mass. Gallbladder and bile ducts: Normal. No calcified stones. No ductal dilation. Pancreas: Normal. No ductal dilation. Spleen: Normal. No splenomegaly. Adrenals: Normal. No mass. Kidneys and ureters: Normal. No hydronephrosis. Stomach and bowel: distal colonic diverticulosis without diverticulitis. Lymph nodes: Unremarkable. No enlarged lymph nodes. Intraperitoneal space: Unremarkable. No free air. No significant fluid collection. Bones/joints: Unremarkable. No acute fracture. No dislocation. Soft tissues: Unremarkable. IMPRESSION: Distal colonic diverticulosis without diverticulitis. Lab Data Lab results reviewed: Yes I reviewed the patient's lab results. Labs: Laboratory Tests Range/Units 09/28/19 09/28/19 09/28/19 15:55 15:55 15:55 WBC (4.4-10.8) k/cumm 8.25 RBC (4.00-5.20) m/cumm 5.09 Hgb (12.0-15.5) g/dL 12.1 Hct (36.0-46.0) % 37.3 MCV (80-95) fL 73.3 L MCH (27.0-33.0) pg 23.8 L MCHC (32.0-36.0) g/dL 32.4 RDW (11.7-14.6) % 15.7 H Plt Count (130-400) x1000/uL 327 MPV (8.0-11.0) fL 10.4 Immature Gran % % 0.4 Neutrophils % 54.1 Lymphocytes % 33.9 Monocytes % 8.1 Eosinophils % 3.3 Basophils % 0.2 Absolute Neutrophils (1.2-6.7) k/cumm 4.46 Absolute Lymphocytes (1.2-3.4) k/cumm 2.80 Absolute Monocytes (0.11-0.7) k/cumm 0.67 Absolute Eosinophils (0.0-0.7) k/cumm 0.27 Absolute Basophils (0.0-0.2) k/cumm 0.02 Sodium (136-145) mmol/L 138 Potassium (3.5-5.1) mmol/L 2.7 L* Chloride (98-107) mmol/L 100 Carbon Dioxide (21.0-32.0) mmol/L 27.2 Anion Gap (3-11) mmol/L 10.8 BUN (7-18) mg/dL 16 Creatinine (0.55-1.02) mg/dL 0.89 Estimated GFR/1.73 m2 (mL/min/1.73m2) >= 60.00 Glucose (74-106) mg/dL 108 H Calcium (8.5-10.1) mg/dL 8.6 Magnesium (1.8-2.4) mg/dL 1.9 Total Bilirubin (0.2-1.0) mg/dL 0.4 AST (15-37) U/L 14 L ALT (14-59) U/L 22 Alkaline Phosphatase (46-116) U/L 82 Troponin I (<0.06) ng/mL < 0.05 Total Protein (6.4-8.2) g/dL 7.5 Albumin (3.4-5.0) g/dL 3.7 Lipase (73-393) U/L 67 Serum HCG, Qual Negative ECG Data Attestation: I personally reviewed and interpreted this ECG (s) as follows: Interpretation: #1 -- Rate of 103, sinus. Less than [address] depression in V3 through V5. No acute ST elevation. MT 150. QTc 445. QRS 90. #2 -- Rate of 90, sinus. No acute ST elevation or depression. MT 160. QTc 455. QRS 88. HPI General Mode of arrival: ambulatory. Date/Time Provider Initiated Documentation: 09/28/19 14:58. Limitations to Documentation: no limitations. Information obtained by: patient. HPI Narrative: Patient is a 38-year-old female with a history of PCOS, GERD, erosive gastritis, migraine who presents to the ED with complaint of intermittent sharp epigastric and RUQ abdominal pain that started at 10 AM today. She states the pain radiates straight through to her scapula. She states the pain is currently 8/10. She denies any relief with meloxicam or Tums. She admits to nausea but denies any vomiting. Last bowel movement today. She states she has had similar pain occurring once weekly for the past month. She is unsure of any aggravating or alleviating factors. She is unsure of any relation to food. She denies any chest pain or shortness of breath, leg pain or swelling, fever or urinary symptoms. Related Data Home Medications Medication Instructions Recorded Confirmed acetaminophen [Mapap Extra 1 tab PO PRN PRN 09/06/14 09/28/19 Strength] chlorthalidone 0.5 tab PO DAILY 03/05/17 09/28/19 Nexplanon 1 implant SUBDERMAL DIRECTED 06/10/17 09/28/19 eletriptan [Relpax] 40 mg PO PRN #6 tab-cap 08/05/17 09/28/19 omeprazole 40 mg PO DAILY 12/23/17 09/28/19 tramadol 50 mg tablet 50 mg PO Q8H PRN #90 tab 06/17/18 09/28/19 lidocaine 1 patch TRANSDERMAL DAILY 07/16/18 09/28/19 nystatin 1 applic TOPICAL TID PRN 07/16/18 09/28/19 trazodone 100 mg PO HS 07/16/18 09/28/19 oxybutynin chloride 10 mg 10 mg PO DAILY 10/21/18 09/28/19 tablet,extended release 24 hr sucralfate 1 gram tablet 1 gm PO QID PRN #30 tab 02/21/19 09/28/19 topiramate 100 mg tablet 100 mg PO QHS #30 tab 07/12/19 09/28/19 meloxicam 7.5 mg tablet 7.5 mg PO BID #60 tab 08/24/19 09/28/19 Previous Rx's Medication Instructions Recorded eletriptan [Relpax] 40 mg PO PRN #6 tab-cap 08/05/17 tramadol 50 mg tablet 50 mg PO Q8H PRN #90 tab 06/17/18 sucralfate 1 gram tablet 1 gm PO QID PRN #30 tab 02/21/19 topiramate 100 mg tablet 100 mg PO QHS #30 tab 07/12/19 meloxicam 7.5 mg tablet 7.5 mg PO BID #60 tab 08/24/19 Allergies Allergy/AdvReac Type Severity Reaction Status Date / Time guaifenesin Allergy Intermediate Unverified 09/28/19 15:13 varenicline tartrate Allergy Mild Itching Verified 09/28/19 15:13 [From Chantix] Sulfa (Sulfonamide AdvReac Severe vomiting Verified 09/28/19 15:13 Antibiotics) gabapentin AdvReac Intermediate muscle Verified 09/28/19 15:13 spasm NSAIDS (Non-Steroidal AdvReac Intermediate GI Symptoms Verified 09/28/19 15:13 Anti-Inflamma zolpidem tartrate AdvReac Intermediate sleep walks Verified 09/28/19 15:13 [From Ambien] trimethoprim [From Bactrim] AdvReac Mild Nausea Verified 06/17/20 15:13 polyethylene glycol 3350 AdvReac GI upset Verified 09/28/19 15:13 [From Miralax] burdocks Allergy Mild hives, Uncoded 09/28/19 15:13 itching naldecon Allergy unknown Uncoded 09/28/19 15:13 General Stated Complaint: Abd Prob LATESHA: 3 Review of Systems All systems reviewed & are unremarkable except as noted in HPI and below Constitutional Constitutional: Reports as per HPI, Denies chills and Denies fever(s) Eyes Eyes: Denies blurry vision ENT Ears, Nose, Mouth, and Throat: Denies dizziness, Denies sore throat and Denies throat swelling Cardiovascular Cardiovascular: Denies chest pain and Denies dyspnea Respiratory Respiratory: Denies cough and Denies dyspnea Gastrointestinal Gastrointestinal: Reports abdominal pain, Denies diarrhea, Reports nausea and Denies vomiting Genitourinary Genitourinary: Denies hematuria and Denies dysuria Musculoskeletal Musculoskeletal: Denies back pain and Denies numbness Integumentary/Breasts Skin/Breast: Denies lesions and Denies rash Neurologic Neurologic: Denies dizziness, Denies localized weakness and Denies numbness Allergic/Immunologic Allergic/Immunologic: Denies throat swelling [facility] Social History Smoking/Tobacco Use Status: Former Tobacco Use Alcohol Intake: never Drug use: Never Substance use type: does not use Household members: children Housing: apartment Number of Children: 1 current occupation: [employer] What is your relationship status?: Panel score (0-1 are the most socially isolated patients): 0 What type of physical activity do you participate in: none Do you feel safe at home: Yes Do you feel safe in your relationship?: Yes Additional Social history: She has one daughter and two stepchildren, lives with her partner Geovanni. 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 Female Reproductive History Menstrual control method: implanted History History 1 Para 1 Hx # Term Pregnancies Multiple births Hx # Pregnancies Ectopic pregnancies AB induced Hx Number of Living Children AB spontaneous Exam Const General: cooperative and no acute distress Orientation: alert, awake and oriented x3 HENMT Head: normal to inspection Face and sinus: normal facial exam Eyes General: appearance normal, both eyes and all related structures EOM: EOM intact bilaterally Neck Neck: normal visual inspection and No submandibular swelling Lymphatic: no lymphadenopathy noted Chest Chest: normal inspection of the chest and no tenderness Resp Effort & Inspection: normal respiratory effort and able to speak in complete sentences Auscultation: clear to auscultation bilaterally Cardio Rate: regular rate Rhythm: regular rhythm GI Inspection: normal to inspection Palpation: soft, not firm, not rigid and tender in the epigastrum and in the RUQ Auscultation: hypoactive bowel sounds Skin General skin exam: no rashes or lesions noted Neuro General: patient alert, patient awake and patient oriented x3 Cognition: normal cognition Speech: speech normal Motor: muscle tone normal throughout Sensory Exam: no sensory deficits noted Extrem General: normal to inspection, full ROM, capillary refill normal, no calf tenderness bilaterally and no edema Psych Appearance: grossly normal Mental Status: mental status grossly normal Speech and Movement: speech and movement normal Affect: normal affect Course Vital Signs Vital signs: Vital Signs Temperature 98.2 F 09/28/19 15:07 Pulse 110 H 09/28/19 15:07 Respiratory Rate 18 09/28/19 15:07 Blood Pressure 144/96 H 09/28/19 15:07 Pulse Oximetry 98 09/28/19 15:07 Temperature 98.2 F 09/28/19 15:07 Temperature Source Temporal Artery Scan 09/28/19 15:07 Pulse 110 H 09/28/19 15:07 Respiratory Rate 18 09/28/19 15:07 Blood Pressure 144/96 H 09/28/19 15:07 Blood Pressure Position Sitting 09/28/19 15:07 Pulse Oximetry 98 09/28/19 15:07 Oxygen Delivery Method Room Air 09/28/19 15:07 Oxygen Flow Rate 0 09/28/19 15:07 Pain Level 8 09/28/19 15:07
--- NOTE | 2019-09-28 15:30 | DI.US_ITS ---
EXAM: US ABDOMEN LIMITED CLINICAL HISTORY: RUQ abd pain, r/o cholecystitis TECHNIQUE: Ultrasound abdomen performed using standard protocol. COMPARISON: No exams were available for comparison FINDINGS: LIVER: Normal size and echogenicity where visualized. GALLBLADDER: No evidence of cholelithiasis. No evidence of wall thickening. No pericholecystic fluid identified. BILIARY SYSTEM: No intrahepatic or extrahepatic biliary ductal dilation. SESAY'S SIGN: Negative. PANCREAS: Normal where visualized. ABDOMINAL AORTA AND IVC: Visualized portions normal caliber. ASCITES: None seen. IMPRESSION: No acute abnormality. DATA REPOSITORY:
[2019-09-28] MEDS: Normal Saline 1,000 ML 1000 ML IV (15:55)
[2019-09-28 16:03] LABS: Abs Immature Grans 0.03 k/cumm (0.0-0.09); Absolute Basophil Count 0.02 k/cumm (0.0-0.2); Absolute Eosinophil Count 0.27 k/cumm (0.0-0.7); Absolute Monocyte Count 0.67 k/cumm (0.11-0.7); Absolute Neutrophil Count 4.46 k/cumm (1.2-6.7); Basophils % 0.2; Eosinophils % 3.3; HCT 37.3 % (36.0-46.0); HGB 12.1 g/dL (12.0-15.5); Immature Grans % 0.4 %; Lymphocytes % 33.9; Mean Corp. HGB Concentration 32.4 g/dL (32.0-36.0); Mean Corpuscular Hemoglobin 23.8 pg (27.0-33.0); Mean Corpuscular Volume 73.3 fL (80-95); Mean Platelet Volume 10.4 fL (8.0-11.0); Monocytes % 8.1; Neutrophils % 54.1; Platelet Count 327 x1000/uL (130-400); RBC 5.09 m/cumm (4.00-5.20); RBC Distribution Width 15.7 % (11.7-14.6); White Blood Cell Count 8.25 k/cumm (4.4-10.8)
[2019-09-28] MEDS: ACETAMINOPHEN 1,000 MG/100 ML BTL 400 MG IVPB (16:04)
--- NOTE | 2019-09-28 16:26 | DI.VRAD_ITS ---
PROCEDURE INFORMATION: Exam: US Abdomen Limited, Right Upper Quadrant Exam date and time: 09/28/2019 3:41 PM Age: 38 years old Clinical indication: Abdominal pain; Localized; Right upper quadrant (ruq) TECHNIQUE: Imaging protocol: Real-time ultrasound of the abdomen with image documentation. Examination was focused on the right upper quadrant. COMPARISON: [place] ABDOMEN ULTRASOUND (P) 12/19/2016 3:30 PM FINDINGS: Liver: Normal. No masses. Gallbladder: Normal. No gallstones. There is no gallbladder wall thickening. Common bile duct: Normal. No stones. No dilation. Pancreas: Visualized pancreas is unremarkable. IMPRESSION: No acute findings. Dictated and Authenticated by: Mary Robin MD. Ordering:AMANDA Garcia MD
[2019-09-28 16:33] LABS: ALT 22 U/L (14-59); AST 14 U/L (15-37); Albumin 3.7 g/dL (3.4-5.0); Alkaline Phosphatase 82 U/L (46-116); Anion Gap 10.8 mmol/L (3-11); BUN 16 mg/dL (7-18); Bilirubin, Total 0.4 mg/dL (0.2-1.0); CO2 27.2 mmol/L (21.0-32.0); CREATININE 0.89 mg/dL (0.55-1.02); Calcium 8.6 mg/dL (8.5-10.1); Chloride 100 mmol/L (98-107); Glucose 108 mg/dL (74-106); Lipase 67 U/L (73-393); Magnesium 1.9 mg/dL (1.8-2.4); Sodium 138 mmol/L (136-145); Total Protein 7.5 g/dL (6.4-8.2)
[2019-09-28 16:35] LABS: Troponin I < 0.05 ng/mL (<0.06)
[2019-09-28 16:37] LABS: Potassium 2.7 mmol/L (3.5-5.1)
[2019-09-28] MEDS: Potassium Chloride 20 MEQ TABCR 40 MEQ PO (16:53)
[2019-09-28] MEDS: FAMOTIDINE 20 MG/50 ML BAG 200 MG IVPB (16:54)
[2019-09-28] MEDS: POTASSIUM CHLORIDE 20 MEQ/100 ML BAG 50 MEQ IVPB (16:59)
[2019-09-28] MEDS: Normal Saline 1,000 ML 125 ML IV (17:00)
[2019-09-28] MEDS: Ondansetron 4 MG/2 ML VIAL IVP (17:21)
[2019-09-28 17:26] LABS: HCG Qual (Serum) Negative
[2019-09-28] MEDS: Omnipaque 350 MG/ML 100 ML BTL IJ (17:47)
[2019-09-28] MEDS: Omnipaque 350 MG/ML 50 ML BTL IJ (17:48)
[2019-09-28] MEDS: Normal Saline - Diluent 50 ML VIAL IV (17:48)
--- NOTE | 2019-09-28 17:48 | DI.CT_ITS ---
EXAM: CT CHEST PE ABD PELVIS W CLINICAL HISTORY: RUQ abd pain, radiating to back, r/o PE. TECHNIQUE: Imaging Protocol: Axial computed tomography images with coronal and sagittal reformatted images were created and reviewed CONTRAST MATERIAL: Intravenous: Omnipaque 350 Contrast volume:100 ml Oral: no COMPARISON: CT ABD PELVIS WITH CONTRAST from 06/10/2017 FINDINGS: CHEST: Thyroid: Normal Tracheobronchial tree: Patent where visualized. Mediastinum and [place]: No dominant adenopathy or fluid collection. Pulmonary parenchyma: No consolidation or dominant measurable mass. No architectural distortion. Pleura: No effusion or pneumothorax. Lymph nodes: Within normal limits. Aorta: Thoracic portion non-dilated. No dissection Heart: Normal size. Pulmonary vasculature: No evidence of pulmonary emboli. Bones: No remarkable. ABDOMEN: Liver: Mild fatty infiltration.. No measurable mass. Gallbladder and biliary tract: No radiodense calculus or dilation. Pancreas: Normal density, no abnormal calcifications or inflammatory process. Spleen: Normal. Kidneys: Normal size, contour and axis. No radiodense stones or obstructive uropathy. No masses seen. Adrenal glands: No masses seen. Aorta: Abdominal portion non-dilated. Lymph nodes: Within normal limits. PELVIS: Bladder: Symmetric distention, no gross wall thickening. Bowel: Diverticulosis. No evidence of diverticulitis. No obstruction or bowel wall thickening. Norm al appendix Peritoneal cavity: No ascites, collection or mesenteric inflammatory response. Bones: Within normal limits. Reproductive organs: Retroflexed uterus. Within normal limits. IMPRESSION: No acute abnormality in t the chest, abdomen, or pelvis. RADIATION DOSE DELIVERED: 2,341.64mGy.cm Total DLP 2,341.64mGy.cm Total DLP DATA REPOSITORY: All CT scans at this facility are submitted to the National Radiology Data Registry (NRDR) Dose Index Registry (DIR) with the [employer] ([employer]). RADIATION OPTIMIZATION: All CT scans at this facility use at least one of these dose optimization te chniques: automated exposure control; mA and/or kV adjustment per patient size (includes targeted exa ms where dose is matched to clinical indication); or iterative reconstruction.
--- NOTE | 2019-09-28 18:13 | DI.VRAD_ITS ---
PROCEDURE INFORMATION: Exam: CT Angiography Chest With Contrast Exam date and time: 09/28/2019 5:39 PM Age: 38 years old Clinical indication: Chest pain; Other: Back pain; Abdominal pain; Localized; Right upper quadrant (ruq) TECHNIQUE: Imaging protocol: Computed tomographic angiography of the chest with intravenous contrast. 3D rendering: MIP and/or 3D reconstructed images were created by the technologist. Radiation optimization: All CT scans at this facility use at least one of these dose optimization techniques: automated exposure control; mA and/or kV adjustment per patient size (includes targeted exams where dose is matched to clinical indication); or iterative reconstruction. Contrast material: OMNIPAQUE 350; Contrast volume: 125 ml; Contrast route: INTRAVENOUS (IV); COMPARISON: CR CHEST 2 VIEWS PA,LAT 12/20/2016 1:28 PM FINDINGS: Pulmonary arteries: Normal. No pulmonary emboli. Aorta: Unremarkable. No aortic aneurysm. No aortic dissection. Lungs: Unremarkable. No consolidation. No masses. Pleural space: Unremarkable. No pneumothorax. No pleural effusion. Heart: Unremarkable. No cardiomegaly. No pericardial effusion. Lymph nodes: Unremarkable. No enlarged lymph nodes. Bones/joints: Unremarkable. No acute fracture. Soft tissues: Unremarkable. IMPRESSION: No acute findings. PROCEDURE INFORMATION: Exam: CT Angiography Abdomen With Contrast Exam date and time: 09/28/2019 5:39 PM Age: 38 years old Clinical indication: Chest pain; Other: Back pain; Abdominal pain; Localized; Right upper quadrant (ruq) TECHNIQUE: Imaging protocol: Computed tomographic angiography images of the abdomen with intravenous contrast material. 3D rendering: MIP and/or 3D reconstructed images were created by the technologist. Radiation optimization: All CT scans at this facility use at least one of these dose optimization techniques: automated exposure control; mA and/or kV adjustment per patient size (includes targeted exams where dose is matched to clinical indication); or iterative reconstruction. COMPARISON: CR CHEST 2 VIEWS PA,LAT 12/20/2016 1:28 PM FINDINGS: Aorta: No aortic aneurysm. No aortic dissection. Celiac trunk and mesenteric arteries: No occlusion or significant stenosis. Renal arteries: No occlusion or significant stenosis. Liver: Normal. No mass. Gallbladder and bile ducts: Normal. No calcified stones. No ductal dilation. Pancreas: Normal. No ductal dilation. Spleen: Normal. No splenomegaly. Adrenals: Normal. No mass. Kidneys and ureters: Normal. No hydronephrosis. Stomach and bowel: distal colonic diverticulosis without diverticulitis. Lymph nodes: Unremarkable. No enlarged lymph nodes. Intraperitoneal space: Unremarkable. No free air. No significant fluid collection. Bones/joints: Unremarkable. No acute fracture. No dislocation. Soft tissues: Unremarkable. IMPRESSION: Distal colonic diverticulosis without diverticulitis. Dictated and Authenticated by: Mary Robin MD. Ordering:AMANDA Garcia MD
--- NOTE | 2019-09-28 19:21 | NUR.NOTE ---
Nursing Note: faxed [id number] to general surgery 09/28/19 upper gastric pain
== END 2019-09-28 20:35 | disposition home or self-care (01) ==
PROVIDERS: Emergency Provider Physician Assistant; PCP Nurse Practitioner Family
DX: E87.6 Hypokalemia (principal); R10.13 Epigastric pain; R10.11 Right upper quadrant pain; R11.0 Nausea; R07.9 Chest pain, unspecified; K21.9 Gastro-esophageal reflux disease without esophagitis
CPT/HCPCS: 36415; 71275; 74177; 80053; 81025; 83690; 93005; 96361; 96365; 96366; 96367; 96375; 99285; 76705; 83735; 84484; 84703; 85025; 93010; 99284; J0131; J2405; J3480; J3490; Q9967

== ENCOUNTER 2019-10-05 14:14 | Outpatient (REF) | payer BC, SELFPAY | END 2019-10-05 14:34 | LOC: NCHCN 14:14 | PROVIDERS: PCP Nurse Practitioner Family; Visit Provider Physician Assistant | DX: E87.6 Hypokalemia (principal) | CPT/HCPCS: 84132 ==

== ENCOUNTER 2019-10-12 02:14 | Outpatient (CLI) | payer BC, SELFPAY ==
--- NOTE | 2019-10-12 07:00 | DI.NM_ITS ---
EXAM: NM HEPATOBILIARY CCK GRP CLINICAL HISTORY: Epigastric pain, R10.13. TECHNIQUE: Injected dose: 4.9 mCi Tc-99 mebrofenin Post-Gallbladder fillin.1 mcg CCK administered according to protocol. Imaging was performed according to protocol. COMPARISON: No exams were available for comparison FINDINGS: Normal hepatic transit time. Prompt excretion into the small bowel. Prompt excretion into the gallbladder. The gallbladder ejection fraction was 8 percent. This is bel ow normal.. IMPRESSION: 1. Depressed gallbladder ejection fraction. This raises a question of gallbladder dysfunction. SN guidelines: Gallbladder visualization should be present by 3 hours. Delayed [id number] [place] sit beyond 60 min raises the suspicion for partial common bile duct (CBD) obstruction. Gallbladder ejection fraction <35% has a good correlation with acalculous disease (i.e., chronic acal culous cholecystitis, cystic duct syndrome, sphincter of Oddi disease).
== END 2019-10-12 02:34 ==
PROVIDERS: PCP Nurse Practitioner Family; Visit Provider Surgery
DX: R10.13 Epigastric pain (principal); K82.8 Other specified diseases of gallbladder; R93.2 Abnormal findings on diagnostic imaging of liver and biliary tract
CPT/HCPCS: 78227

== ENCOUNTER 2019-10-21 08:07 | Outpatient (CLI) | payer BC, SELFPAY ==
[2019-10-23 12:25] LABS: COVID-19 RT-PCR Result NEGATIVE (Negative)
== END 2019-10-21 08:27 ==
PROVIDERS: PCP Nurse Practitioner Family; Visit Provider Surgery
DX: Z01.818 Encounter for other preprocedural examination (principal); Z11.59 Encounter for screening for other viral diseases
CPT/HCPCS: U0003

== ENCOUNTER 2019-10-25 06:07 | Day surgery (SDC) | payer BC, SELFPAY ==
[2019-10-25] VITALS (8 sets, daily range): BP systolic 115–140; BP diastolic 77–99; PULSE 66–95; RESP 12–23; TEMP 36.1–36.5; O2SAT 96–100
[2019-10-25] MEDS: Lactated Ringers 1,000 ML 80 ML IV ×2 (06:58→09:06)
[2019-10-25] MEDS: ceFAZolin 2 GM/50 ML BAG IVPB (07:29)
--- NOTE | 2019-10-25 07:33 | W.PM.DSUDISC ---
Discharge Plan Disposition Patient Disposition: HOME Condition: Good Discharge Details Reason For Visit: Laparoscopic cholecystectomy Attending Provider: Shantelle Bustillo Primary Care Provider: Julia Chen Home Meds and New Rx's Prescriptions: New hydrocodone-acetaminophen 5-325 mg Tablet 1 - 2 tab PO Q4H PRN (Reason: Pain) Qty: 15 RF: 0 Continued tramadol 50 mg tablet 50 mg PO Q8H PRN (Reason: pain) Qty: 90 RF: 2 oxybutynin chloride 10 mg tablet extended release 24hr 10 mg PO DAILY RF: 0 eletriptan [Relpax] 40 MG tablet 40 mg PO PRN Qty: 6 RF: 5 trazodone 50 mg Tablet 100 mg PO HS RF: 0 lidocaine 5 % Adhesive Patch,Medicated 1 patch Transdermal DAILY RF: 0 nystatin 100,000 unit/gram Powder 1 applic topical TID PRNRF: 0 topiramate [Topamax] 100 mg tablet 100 mg PO QHS Qty: 30 RF: 5 meloxicam 7.5 mg tablet 7.5 mg PO BID Qty: 60 RF: 1 acetaminophen [Mapap Extra Strength] 500 MG tablet 1 tab PO PRN PRNRF: 0 Nexplanon 68 MG implant 1 implant subdermal DIRECTED RF: 0 omeprazole 40 mg Capsule,Delayed Release(Dr/Ec) 40 mg PO DAILY RF: 0 chlorthalidone 25 MG tablet 0.5 tab PO DAILY RF: 0 loratadine 10 mg Tablet 10 mg PO DAILY RF: 0 Discharge Instructions Additional Instructions: The top bandage can be removed tomorrow. The steri strips will usually stick for about a week. When the edges start to curl up, they can be removed. It is okay to shower tomorrow, the water can run over the steri strips Do not swim or soak in a tub for two weeks Call for any concerns including fever, increased pain, vomiting, incision redness or drainage. Do not lift more than 15 pounds for two weeks. Walking and stairs are fine. Do not drive if on narcotic pain meds or if limited by pain. May use Tylenol alternating with ibuprofen for pain control. Ice is also an option. The maximum dose for Tylenol is 4000 mg/day. May use ibuprofen 800 mg every 8 hours as needed. Do not use hydrocodone and Tramadol at the same time. If concerned about constipation, you may use a stool softener or milk of magnesia. Referrals: Shantelle Bustillo MD [ [facility] STAFF PHYSICIAN] - (Return in 10-14 days for a postop check) Activity:: Do not lift more than 15 # Remove Dressings/Wound Care:: 24 hours Shower/Bathe:: 24 hours Diet:: Low fat for two weeks Discharge Orders Discharge Orders: Discharge Order (Routine); Ordered 10/25/19 Ordered By: Shantelle Bustillo DS: Diagnosis Discharge Diagnosis (1) Chronic cholecystitis: Status: Acute
--- NOTE | 2019-10-25 08:30 | GB_PTH ---
PATIENT: Bernice Shore LOC: [facility] U#:[id number] AGE/SX: 38/F ROOM: RE10/25/[address]: Shantelle Bustillo MD : 1980 BED: DIS: 10/25/2019 SPEC #: [id number] RECD: 10/25/19 12:16 STATUS: JULIAN REEric #: [id number] GUALBERTO: 10/25/19 08:[address]: Shantelle Bustillo DEPT: Surgical Specimen RECD BY: Laura Gamez ENTERED: 10/25/19 12:17 SP TYPE: GB OTHR DR: Julia Chen Tissues: 1 - GALLBLADDER Procedures: GROSS AND MICRO LEVEL 3 Comments: [id number]
--- NOTE | 2019-10-25 08:58 | W.PM.OP ---
Date of service: 10/25/19 Time of Service: 08:35 Operative Note Operative Note DATE OF PROCEDURE: 10/25/19 PRE-OP DIAGNOSIS: Chronic cholecystitis POST-OP DIAGNOSIS: same PROCEDURE: Laparoscopic cholecystectomy SURGEON: Shantelle Bustillo ENTRY LEVEL FINANCIAL ANALYST: Ebony Donald ANESTHESIA: GETA and local Patient was transported to: PACU Patient's condition: stable Indications: This 38 year old female presented with symptoms of biliary colic. Her gallbladder US was normal. HIDA showed a decreased EF of 8% Procedure Description: The patient was placed supine on the operative table and after induction of general anesthetic was prepped and draped sterilely. A 5 mm incision was made to the left of the umbilicus after injecting local anesthetic and the abdomen entered under direct visualization. A CO2 pneumoperitoneum was begun and she was placed in reverse Trendelenberg position. The epigastric and 2 lateral ports were placed under direct visualization after injecting local anesthetic. The gallbladder did not appear acutely inflamed. There were no visible liver abnormalities. The gallbladder fundus was grasped and pulled up over the liver. The gallbladder infundibulum was retracted laterally and the peritoneum overlying the triangle of Calot dissected free with hook cautery. The cystic duct and artery were isolated and visualized going directly onto the gallbladder. The common bile duct was visualized and avoided. The cystic duct was not dilated and had no stones palpated within it. The cystic duct was clipped twice distally and once proximally and divided. The artery was clipped twice proximally, once distally and divided. The gallbladder was dissected off the liver bed with hook cautery and removed through the epigastric incision in an Endo Catch bag. The operative site was inspected with no evidence of bleeding or bile leak. The CO2 was released and then the ports removed. The skin of the port sites was then closed with a 4-0 Monocryl subcuticular stitch. She had two episodes of desaturation during the procedure that required release of the pneumoperitoneum. This resulted in quick improvement. I did reduce the insufflation pressure to 12 and then 10. She otherwise tolerated the procedure well and was stable to recovery
[2019-10-25] MEDS: fentaNYL 100 MCG/2 ML VIAL IVP (09:35)
== END 2019-10-25 12:32 | disposition home or self-care (01) ==
PROVIDERS: PCP Nurse Practitioner Family; Visit Provider Surgery
PROC: 0FT44ZZ Resection of Gallbladder, Percutaneous Endoscopic Approach (ICD-10-PCS; CPT 47562; principal; 2019-10-25 07:30)
DX: K81.1 Chronic cholecystitis (principal)
CPT/HCPCS: 47562; 88304; J0131; J0690; J1100; J1200; J1885; J2001; J2405; J3010

== ENCOUNTER 2020-02-13 12:44 | Outpatient (REF) | payer BC, SELFPAY ==
--- NOTE | 2020-02-13 10:30 | PAPFT_PTH ---
PATIENT: Bernice Shore LOC: [facility] U#:[id number] AGE/SX: 39/F ROOM: RE02/13/[address]: Nunu Bates NP : 1980 BED: DIS: 02/13/2020 SPEC #: [id number] RECD: 02/13/20 12:51 STATUS: JULIAN REEric #: [id number] GUALBERTO: 02/13/20 10:[address]: Nunu Bates NP DEPT: REPLACED BY [facility] Cytology RECD BY: Cathryn King ENTERED: 02/13/20 12:52 SP TYPE: PAPFT OTHR DR: Julia Chen Tissues: 1 - CX/ENDOCX FOR PAP SMEARS Procedures: PAP THIN PREP/UVM Screening HPV DNA PROBE Comments: [id number] ([place])
== END 2020-02-13 13:04 ==
LOC: LBN 12:44
PROVIDERS: PCP Nurse Practitioner Family; Visit Provider Nurse Practitioner Women's Health
DX: Z87.410 Personal history of cervical dysplasia (principal); Z12.4 Encounter for screening for malignant neoplasm of cervix; Z11.51 Encounter for screening for human papillomavirus (HPV)
CPT/HCPCS: 88142; 87624

== ENCOUNTER 2020-07-16 10:05 | Emergency (ER) | payer BC, SELFPAY ==
[2020-07-16 10:08] VITALS: BP 124/87; PULSE 88; RESP 18; TEMP 36.3; O2SAT 99
--- NOTE | 2020-07-16 10:15 | DI.US_ITS ---
EXAM: US LOWER EXTREMITY VENOUS LT CLINICAL HISTORY: Posterior knee/calf pain R/O DVT TECHNIQUE: Left lower extremity venous ultrasound performed using grayscale, color-flow, and spectra l Doppler analysis. COMPARISON: No exams were available for comparison FINDINGS: The left common femoral, femoral and popliteal veins demonstrate normal compressibility, augmentation , and color Doppler. The posterior tibial veins are patent. The saphenofemoral junction is unremarka ble. There is no evidence of a Jensen cyst. The soft tissues are unremarkable. IMPRESSION: No DVT. Results of this exam have been verbally communicated with provider. DATA REPOSITORY:
--- NOTE | 2020-07-16 10:27 | ED.GENADUL_ITS ---
Discharge Plan Disposition Patient Disposition: HOME Condition: Stable Discharge Details Clinical Impression: Osteoarthritis of left knee Primary Care Provider: Julia Chen ED Provider: Francisca Cordero Home Meds and New Rx's Prescriptions: Continued tramadol 50 mg tablet 50 mg PO Q8H PRN (Reason: pain) Qty: 90 RF: 2 oxybutynin chloride 10 mg tablet extended release 24hr 10 mg PO DAILY RF: 0 trazodone 50 mg Tablet 100 mg PO HS RF: 0 lidocaine 5 % Adhesive Patch,Medicated 1 patch Transdermal DAILY RF: 0 nystatin 100,000 unit/gram Powder 1 applic topical TID PRNRF: 0 topiramate [Topamax] 100 mg tablet 100 mg PO QHS Qty: 90 RF: 3 eletriptan [Relpax] 40 mg tablet 40 mg PO PRN Qty: 6 RF: 5 meloxicam 7.5 mg tablet 7.5 mg PO BID Qty: 60 RF: 6 Nexplanon 68 MG implant 1 implant subdermal DIRECTED RF: 0 omeprazole 40 mg Capsule,Delayed Release(Dr/Ec) 40 mg PO DAILY RF: 0 spironolactone 50 mg tablet 50 mg PO DAILY RF: 0 acetaminophen 650 mg Tablet Extended Release 1,300 mg PO QAM RF: 0 loratadine 10 mg Tablet 10 mg PO DAILY RF: 0 Discharge Instructions Instructions: Arthralgia (ED) Additional Instructions: Follow up with primary care provider in 3-5 days. Return to ED sooner if any worsening or concerns. Increase oral fluids. Please take Tylenol or Ibuprofen with food every 4-6 hours as needed for pain and swelling. Rest ice compression elevation. Wear the knee brace daily as needed for comfort. Follow-up with orthopedics in 1 to 2 weeks if needed for continued pain. Referrals: Julia Chen [Primary Care Provider] - Florian Lambert MD [ [facility] STAFF PHYSICIAN] - Discharge Data Discharge Date/Time-TO BE ENTERED AT DEPARTURE: 07/16/20 12:45 Medical Decision Making 39-year-old female presents to the ER with chief complaint of left posterior knee pain which radiates down to her left calf this began 1 day ago. She denies any recent known injury. She does have a history of osteoarthritis and knee problems. She has had 5 surgeries in that left knee. She states that it normally hurts anteriorly but began hurting behind yesterday. She does sit for prolonged periods of time at her job, she does have a Nexplanon control implantation device, she is a former smoker. She does not currently smoke. She does not currently take any blood thinners and no known past medical history of blood clot. Venous ultrasound left lower extremity ordered. EXAM: XR KNEE LT 3V AP,LAT,ATILIO CLINICAL HISTORY: Pain, Hx of surgery, arthritis. TECHNIQUE: 2D digital imaging was performed. COMPARISON: CR XR knee LT 2V AP,lat from 06/04/2018 FINDINGS: Moderately severe degenerative changes are seen in the left knee with joint space narrowing and periarticular spurring involving all 3 joint compartments. The bones are normally mineralized. No acute fracture or dislocation. There is a small suprapatellar joint effusion. The soft tissues are otherwise unremarkable. IMPRESSION: Osteoarthritis of the left knee. Result received from the left ultrasound negative for DVT. TECHNIQUE: Left lower extremity venous ultrasound performed using grayscale, color-flow, and spectral Doppler analysis. COMPARISON: No exams were available for comparison FINDINGS: The left common femoral, femoral and popliteal veins demonstrate normal compressibility, augmentation, and color Doppler. The posterior tibial veins are patent. The saphenofemoral junction is unremarkable. There is no evidence of a Jensen cyst. The soft tissues are unremarkable. IMPRESSION: No DVT. Discussed ultrasound results patient verbalized understanding. Discussed home care and strict return instructions verbalized understanding. HPI General Mode of arrival: ambulatory . Date/Time Provider Initiated Documentation: 07/16/20 10:20 . Limitations to Documentation: no limitations . Information obtained by: patient . HPI Narrative: 39-year-old female presents to the ER with chief complaint of left posterior knee pain which radiates down to her left calf this began 1 day ago. She denies any recent known injury. She does have a history of osteoarthritis and knee problems. She has had 5 surgeries in that left knee. She states that it normally hurts anteriorly but began hurting behind yesterday. She does sit for prolonged periods of time at her job, she does have a Nexplanon control implantation device, she is a former smoker. She does not currently smoke. She does not currently take any blood thinners and no known past medical history of blood clot. Related Data Home Medications Medication Instructions Recorded Confirmed Nexplanon 1 implant SUBDERMAL DIRECTED 06/10/17 07/16/20 omeprazole 40 mg PO DAILY 12/23/17 07/16/20 tramadol 50 mg tablet 50 mg PO Q8H PRN #90 tab 06/17/18 07/16/20 lidocaine 1 patch TRANSDERMAL DAILY 07/16/18 07/16/20 nystatin 1 applic TOPICAL TID PRN 07/16/18 07/16/20 trazodone 100 mg PO HS 07/16/18 07/16/20 oxybutynin chloride 10 mg 10 mg PO DAILY 10/21/18 07/16/20 tablet,extended release 24 hr loratadine 10 mg PO DAILY 10/25/19 07/16/20 eletriptan 40 mg tablet 40 mg PO PRN #6 tab-cap 01/05/20 07/16/20 topiramate 100 mg tablet 100 mg PO QHS #90 tab 01/05/20 07/16/20 meloxicam 7.5 mg tablet 7.5 mg PO BID #60 tab 04/12/20 07/16/20 acetaminophen 1,300 mg PO QAM 07/16/20 07/16/20 spironolactone 50 mg PO DAILY 07/16/20 07/16/20 Previous Rx's Medication Instructions Recorded tramadol 50 mg tablet 50 mg PO Q8H PRN #90 tab 06/17/18 eletriptan 40 mg tablet 40 mg PO PRN #6 tab-cap 01/05/20 topiramate 100 mg tablet 100 mg PO QHS #90 tab 01/05/20 meloxicam 7.5 mg tablet 7.5 mg PO BID #60 tab 04/12/20 Allergies Allergy/AdvReac Type Severity Reaction Status Date / Time guaifenesin Allergy Intermediate Verified 06/11/20 14:59 varenicline tartrate Allergy Mild Itching Verified 06/11/20 14:59 [From Chantix] Sulfa (Sulfonamide AdvReac Severe vomiting Verified 06/11/20 14:59 Antibiotics) gabapentin AdvReac Intermediate muscle Verified 06/11/20 14:59 spasm NSAIDS (Non-Steroidal AdvReac Intermediate GI Symptoms Verified 06/11/20 14:59 Anti-Inflamma zolpidem tartrate AdvReac Intermediate sleep walks Verified 06/11/20 14:59 [From Ambien] trimethoprim [From Bactrim] AdvReac Mild Nausea Verified 06/11/20 14:59 polyethylene glycol 3350 AdvReac GI upset Verified 06/11/20 15:17 [From Miralax] burdocks Allergy Mild hives, Uncoded 06/11/20 14:59 itching naldecon Allergy unknown Uncoded 06/11/20 14:59 General Stated Complaint: Vascular LATESHA: 3 Review of Systems Narrative: Constitutional: Negative for weight loss, alert and oriented, well groomed, obese body habitus, appears comfortable. HEENT: Denies trauma, headaches, blurry vision, nasal discharge, sore throat, trouble swallowing. Chest: Denies chest pain, palpitations, irregular rhythm, hypertension. Respiratory: Denies Shortness of breath, cough, hemoptysis. Musculoskeletal: Reports left posterior knee pain radiating down her left calf. Sudden onset no known injury. Hematologic: Denies easy bruising, intolerance to heat or cold, hair loss. [facility] Medical History Abnormal Pap smear of cervix 2010 CIN1 2013 ASCUS + HPV 2015 LEEP CIN2 BMI 39.0-39.9,adult C. difficile colitis 2/2 antibiotics CMV (cytomegalovirus) infection Dec 2016 with mono-like illness Depression Diverticulitis large intestine Gastric ulcer GERD (gastroesophageal reflux disease) Migraine has been on supression with Topaxax. 2015 has weaned off. Migraine headache with aura Migraine headache without aura PCOS (polycystic ovarian syndrome) Presence of subdermal contraceptive implant (01/04/20) Tobacco use adverse rxn to Chantix in past 07/2014 Quit with Wellbutrin Surgical History Arthroplasty of knee (~02/2013) L lateral meniscus repair, open lateral release Dec 2017. 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 Martin Family History Father , [place] Essential hypertension Anxiety Depression Heart disease Hyperlipidemia Myocardial infarction COPD (chronic obstructive pulmonary disease) Diverticular disease of colon error Asthma Mother Depression Diverticular disease of colon Grandfather Diabetes Alcohol abuse Personal history of malignant neoplasm Heart disease Brother Sleep apnea Essential hypertension Social History Smoking/Tobacco Use Status: Former Tobacco Use Quit Date: 04/13/14 Smoking risk assessment performed?: Yes Alcohol Intake: former Drug use: Never Substance use type: does not use Details: alcohol: 10/15/2019, one drink Household members: children Housing: apartment Number of Children: 1 current occupation: [employer] Current gender identity: female What is your relationship status?: Panel score (0-1 are the most socially isolated patients): 0 What type of physical activity do you participate in: none Do you feel safe at home: Yes Do you feel safe in your relationship?: Yes Additional Social history: She has one daughter and two stepchildren, lives with her partner Geovanni. 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. Female Reproductive History Menstrual control method: implanted History History 1 Para 1 Hx # Term Pregnancies Multiple births Hx # Pregnancies Ectopic pregnancies AB induced Hx Number of Living Children AB spontaneous Exam Narrative Exam Narrative: Constitutional: Alert and oriented x3. Appears stated age. Obese body habitus. Head: Normocephalic, no trauma. Chest: RRR, Normal S1, S2, distal pulses intact. Resp: Lungs clear to auscultation bilaterally, no wheezes, rales, or rhonchi. Musculoskeletal: 5/5 strength to all four extremities. Negative Homans' sign, no erythema or warmth noted to the left calf. No palpable tenderness or masses noted to the popliteal fossa. Dorsal pedal pulses intact bilaterally. Skin: No suspicious rashes or lesions. Capillary refill less than 2 sec. Neurologic: Cranial nerves II-XII intact. Alert and oriented x 3. DTR's intact. Hematologic/Lymphatic: No ecchymosis, no lymphadenopathy. Course Vital Signs Vital signs: Vital Signs Temperature 36.3 C L 07/16/20 10:08 Pulse 88 07/16/20 10:08 Respiratory Rate 18 07/16/20 10:08 Blood Pressure 124/87 07/16/20 10:08 Pulse Oximetry 99 07/16/20 10:08 Temperature 36.3 C L 07/16/20 10:08 Temperature Source Skin 07/16/20 10:08 Pulse 88 07/16/20 10:08 Respiratory Rate 18 07/16/20 10:08 Respiratory Effort 07/16/20 10:18 Blood Pressure 124/87 07/16/20 10:08 Pulse Oximetry 99 07/16/20 10:08 Oxygen Delivery Method Room Air 07/16/20 10:08 Oxygen Flow Rate 0 07/16/20 10:08 Pain Level 5 07/16/20 10:08
--- NOTE | 2020-07-16 10:30 | DI.RAD_ITS ---
EXAM: XR KNEE LT 3V AP,LAT,ATILIO CLINICAL HISTORY: Pain, Hx of surgery, arthritis. TECHNIQUE: 2D digital imaging was performed. COMPARISON: CR XR knee LT 2V AP,lat from 06/04/2018 FINDINGS: Moderately severe degenerative changes are seen in the left knee with joint space narrowing and peria rticular spurring involving all 3 joint compartments. The bones are normally mineralized. No acute fracture or dislocation. There is a small suprapatellar joint effusion. The soft tissues are otherw ise unremarkable. IMPRESSION: Osteoarthritis of the left knee. DATA REPOSITORY: RADIATION DOSE DELIVERED:
[2020-07-16 10:32] VITALS: RESP 18
[2020-07-16 12:12] VITALS: BP 118/77; PULSE 63; RESP 18; TEMP 36.6; O2SAT 99
== END 2020-07-16 12:45 | disposition home or self-care (01) ==
PROVIDERS: Emergency Provider Registered Nurse Emergency; PCP Nurse Practitioner Family
DX: M17.12 Unilateral primary osteoarthritis, left knee (principal)
CPT/HCPCS: 73562; 99284; 93971; 99283

== ENCOUNTER 2020-12-10 21:18 | Outpatient (REF) | payer BC, SELFPAY ==
[2020-12-10 20:14] LABS: Anion Gap 11.3 mmol/L (3-11); BUN 15 mg/dL (7-18); CO2 19.7 mmol/L (21.0-32.0); CREATININE 0.9 mg/dL (0.55-1.02); Calcium 8.8 mg/dL (8.5-10.1); Chloride 107 mmol/L (98-107); Glucose 99 mg/dL (74-106); Potassium 3.9 mmol/L (3.5-5.1); Sodium 138 mmol/L (136-145)
== END 2020-12-10 21:19 | disposition home or self-care (01) ==
LOC: NCHCN 21:18
PROVIDERS: PCP Nurse Practitioner Family; Visit Provider Physician Assistant
DX: E87.6 Hypokalemia (principal)
CPT/HCPCS: 80048

== ENCOUNTER 2021-07-02 14:41 | Outpatient (REF) | payer BC, SELFPAY ==
[2021-07-02 13:42] LABS: ALT 23 U/L (14-59); Calculated LDL 81 mg/dL (<100); Cholesterol 139 mg/dL (<200); HDL Cholesterol 37 mg/dL (40-60); Triglyceride 106 mg/dL (<150)
[2021-07-02 13:43] LABS: Hemoglobin A1C 6.5 % (<5.7)
== END 2021-07-02 14:42 | disposition home or self-care (01) ==
LOC: NCHCN 14:41
PROVIDERS: PCP Nurse Practitioner Family; Visit Provider Physician Assistant
DX: E78.5 Hyperlipidemia, unspecified (principal); R73.03 Prediabetes; K21.9 Gastro-esophageal reflux disease without esophagitis; M25.562 Pain in left knee
CPT/HCPCS: 80061; 83036; 84460

== ENCOUNTER 2021-07-22 10:49 | Outpatient (CLI) | payer BC, SELFPAY ==
--- NOTE | 2021-08-26 09:13 | W.CARDEVENT ---
Date of service: 08/26/21 Time of Service: 08:13 Cardiac Event Recorder Referring Provider:: Eliud Ann Indications:: Dizziness Cardiac Event Note: This is a 30-day cardiac event recorder, reportedly ordered for dizziness. Predominant rhythm was sinus with an average heart rate of 89. There were no significant ventricular or supraventricular dysrhythmias Patient symptoms of fast heartbeat corresponded to sinus tachycardia rate 120 to 130/min Patient symptoms of dizziness corresponded to sinus rhythm in the 80s There was no atrial fibrillation, no significant bradycardia, no high-grade AV block, no pauses greater than 3 seconds
== END 2021-07-22 10:50 | disposition home or self-care (01) ==
PROVIDERS: PCP Nurse Practitioner Family; Visit Provider Physician Assistant
DX: R42 Dizziness and giddiness (principal)
CPT/HCPCS: 93270

== ENCOUNTER → 2021-08-13 15:54 | Outpatient (CLI) | payer BC, SELFPAY ==
--- NOTE | 2021-08-13 14:43 | DI.RAD_ITS ---
Exam(s) XR KNEE LT 3V AP,LAT,ATILIO EXAM: XR KNEE LT 3V AP,LAT,ATILIO CLINICAL HISTORY: Left Knee Joint Pain - M25.562. TECHNIQUE: 2D digital imaging was performed. COMPARISON: CR XR KNEE LT 3V AP,LAT,ATILIO from 07/16/2020 FINDINGS: 3 views Significant osteoarthritic degenerative changes are again noted, unchanged. There is no evidence of obvious acute fracture and there is no evidence of obvious joint effusion. Bone density is normal. IMPRESSION: Degenerative changes. No fracture evident. No joint effusions seen DATA REPOSITORY: RADIATION DOSE DELIVERED:
--- NOTE | 2021-08-13 14:43 | DI.RAD_ITS ---
Exam(s) XR HAND LT COMPLETE EXAM: XR HAND LT COMPLETE CLINICAL HISTORY: Left Finger Pain - m79.645. TECHNIQUE: 2D digital imaging was performed. COMPARISON: CR RIGHT HAND COMPLETE from 09/22/2009 FINDINGS: 3 views There is no evidence of acute fracture or dislocation. No radiopaque foreign body. No osseous lesio ns. Bone density normal. IMPRESSION: No fractures evident. DATA REPOSITORY: RADIATION DOSE DELIVERED:
== END ==
PROVIDERS: PCP Nurse Practitioner Family; Visit Provider Nurse Practitioner Family
DX: M25.562 Pain in left knee (principal); M17.12 Unilateral primary osteoarthritis, left knee; M79.645 Pain in left finger(s)
CPT/HCPCS: 73562; 73130

== ENCOUNTER 2021-09-26 11:10 | Outpatient (CLI) | payer BC, SELFPAY ==
--- NOTE | 2021-09-26 11:00 | RT.EKG_ITS ---
APPROVED REPORT Exam: Resting ECG Reason for Exam: palpitations Patient Location: O HR:88 bpm ECG Measurements Heart Rate 88 AXIS OR 146 P 47 QRSd 84 QRS 33 QT 343 T 19 QTc 415 Conclusion Sinus rhythm...normal P axis, V-rate 50- 99 Normal Electrocardiogram
== END 2021-09-26 11:11 | disposition home or self-care (01) ==
LOC: DI.CARD 11:12
PROVIDERS: PCP Physician Assistant; Visit Provider Internal Medicine Cardiovascular Disease
DX: R00.2 Palpitations (principal)
CPT/HCPCS: 93010

== ENCOUNTER → 2022-03-14 00:56 | Outpatient (CLI) | payer BC, SELFPAY ==
--- NOTE | 2022-03-14 | DI.RAD_ITS ---
Exam(s) XR CHEST 2V PA LATERAL EXAM: XR CHEST 2V PA LATERAL CLINICAL HISTORY: COUGH, R05.8 TECHNIQUE: 2D digital imaging was performed. COMPARISON: CR CHEST 2 VIEWS PA,LAT from 12/20/2016 FINDINGS: HEART: Normal size. Aorta: PULMONARY VASCULATURE: Normal. LUNGS: Clear. PLEURAL SPACE: No pleural effusion or pneumothorax. BONE:Unremarkable for age. IMPRESSION: No acute abnormality. DATA REPOSITORY: RADIATION DOSE DELIVERED:
== END ==
PROVIDERS: PCP Physician Assistant; Visit Provider Physician Assistant
DX: R05.8 Other specified cough (principal)
CPT/HCPCS: 71046

== ENCOUNTER 2022-06-04 09:38 | Outpatient (REF) | payer BC, SELFPAY ==
[2022-06-04 15:09] LABS: Hemoglobin A1C 6.1 % (<5.7)
[2022-06-04 15:10] LABS: ALT 16 U/L (14-59); AST 9 U/L (15-37); Albumin 3.7 g/dL (3.4-5.0); Alkaline Phosphatase 82 U/L (46-116); Anion Gap 9.7 mmol/L (3-11); BUN 21 mg/dL (7-18); Bilirubin, Total 0.3 mg/dL (0.2-1.0); CO2 23.3 mmol/L (21.0-32.0); CREATININE 0.9 mg/dL (0.55-1.02); Calcium 9.3 mg/dL (8.5-10.1); Calculated LDL 90 mg/dL (<100); Chloride 110 mmol/L (98-107); Cholesterol 149 mg/dL (<200); Estimated GFR 82.88 (mL/min/1.73m2); Glucose 107 mg/dL (74-106); HDL Cholesterol 42 mg/dL (40-60); Potassium 3.8 mmol/L (3.5-5.1); Sodium 143 mmol/L (136-145); Total Protein 6.8 g/dL (6.4-8.2); Triglyceride 88 mg/dL (<150)
[2022-06-04 16:25] LABS: COMMENT (LAB VIEW ONLY) 395.58 mg/dL; Microalb ug/mg Crea 3.7 ug/mg Cr
== END 2022-06-04 09:39 | disposition home or self-care (01) ==
LOC: NCHCN 09:38
PROVIDERS: PCP Physician Assistant; Visit Provider Physician Assistant
DX: E11.9 Type 2 diabetes mellitus without complications (principal)
CPT/HCPCS: 80053; 80061; 82043; 82570; 83036

== ENCOUNTER 2022-07-31 03:03 | Outpatient (CLI) | payer BC, SELFPAY ==
--- NOTE | 2022-07-31 07:52 | DI.MAMMO_ITS ---
Exam(s) MAMMO SCREENING EXAM: MAMMO SCREENING CLINICAL HISTORY: SCREENING, Z12.39 TECHNIQUE: Mammograms were interpreted according to the usual protocol including computer analysis w [employer] CAD system, tomosynthesis and C-view imaging. COMPARISON: No exams were available for comparison. Baseline exam. FINDINGS: The breasts are composed of scattered fibroglandular densities, Breast Density category B. No suspicious masses or suspicious microcalcifications are seen. No skin thickening or abnormal axillary lymph nodes are seen. IMPRESSION: BI-RADS Category 1, Negative mammogram Yearly screening mammography is recommended. Breast Density - Category B, scattered fibroglandular densities. A negative radiographic report should not delay biopsy if a dominant or clinically suspicious mass is present. Up to ten percent of cancers are not identified on mammography. A negative report may reinforce clinical impression. Adenosis and dense breasts may obscure an underlying neoplasm. False positive reports average 6 to 10%. Patient will receive a letter notifying them of these results.
== END 2022-07-31 03:23 ==
LOC: DI 03:04
PROVIDERS: PCP Physician Assistant; Visit Provider Physician Assistant
DX: Z12.31 Encounter for screening mammogram for malignant neoplasm of breast (principal)
CPT/HCPCS: 77063; 77067

== ENCOUNTER 2022-09-10 09:21 | Outpatient (CLI) | payer BC, SELFPAY ==
--- NOTE | 2022-09-10 09:00 | DI.RAD_ITS ---
Exam(s) XR SHOULDER RT COMPLETE 2+V EXAM: XR SHOULDER RT COMPLETE 2+V CLINICAL HISTORY: Right shoulder pain. TECHNIQUE: 2D digital imaging was performed. Three views. COMPARISON: No exams were available for comparison FINDINGS: BONES: No acute fracture is present. No bony destructive lesion is seen. JOINTS: No dislocation present. Glenohumeral joint is maintained. Minimal spurring at the inferior glenoid. No significant AC joint spurring. SOFT TISSUE: Normal. IMPRESSION: Minimal degenerative changes. DATA REPOSITORY: RADIATION DOSE DELIVERED:
== END 2022-09-10 09:22 | disposition home or self-care (01) ==
LOC: DIORS 09:21
PROVIDERS: PCP Physician Assistant; Referring Provider Physician Assistant; Visit Provider Student in an Organized Health Care Education/Training Program
DX: M25.511 Pain in right shoulder (principal)
CPT/HCPCS: 73030

== ENCOUNTER 2022-10-21 02:31 | Outpatient (CLI) | payer BC, SELFPAY ==
--- NOTE | 2022-10-21 08:30 | DI.MRI_ITS ---
Exam(s) MR UPPER JOINT RT WO EXAM: MR UPPER JOINT RT WO CLINICAL HISTORY: R SHOULDER PAIN,BURSITIS, M75.51 TECHNIQUE: Multiplanar multisequence MRI of the shoulder was performed. COMPARISON: CR XR SHOULDER RT COMPLETE 2+V from 09/10/2022 FINDINGS: MARROW:There is no evidence of fracture, Hill-Sachs deformity, nor ominous osseous lesions. Multiple tiny degenerative subarticular cysts are noted in the posterior aspect of the greater tuberosity of t he lateral humeral head. ROTATOR CUFF MECHANISM: AC JOINT/ACROMIUM: Mild degenerative changes in the AC joint. No prominent downgoing osteophytes thi s level. No evidence of enthesophyte in the coracoacromial ligament.. There is no evidence of os acromiale. Supraspinatus: Minimal if any significant increased signal in the tendon. No evidence tendon tear. No muscle atrophy. Infraspinatus: Intact. No evidence of tear nor muscle atrophy. Teres Minor: Intact. No evidence of tear nor muscle atrophy. Subscapularis/anterior cuff: Intact. No abnormal signal at the level of the multipennate insertional fibers. No significant tear nor atrophy. BICEPS TENDON: Not displaced from its normal position in the intertubercular groove. Minimal fluid in the sheath. No loose bodies evident in the biceps tendon sheath. LABRUM: There is no abnormal signal in the superior labrum posterior to the biceps insertion. The po sterior labrum appears intact. There is signal abnormality in the anterior labrum consistent with so me tearing at this level. Inferior labrum appears intact. Inferior glenohumeral ligament appears in tact. GLENOHUMERAL JOINT: No joint effusion nor obvious loose intra-articular bodies. No chondral defects. No osteophytes. No evidence of capsular tear. The inferior glenohumeral ligament is intact. QUADRILATERAL SPACE: No evidence of mass in the region of the axillary nerve and dorsal circumflex hu meral vessels. Visualized triceps muscle at this level appears unremarkable. IMPRESSION: 1. No evidence of rotator cuff tendon tears and no evidence of atrophy of the muscular components of the rotator cuff mechanism. No evidence of subacromial bursitis nor significant biceps tendon tenosy novitis. No prominent glenohumeral joint effusion. No loose bodies. 2. There is some signal irregularity in the anterior labrum consistent with element of tearing at thi s level. No other labral tears identified. No evidence of paralabral cyst. No tear nor displacemen t of the biceps tendon evident. 3. Minimal degenerative changes in the AC joint. No obvious degenerative changes in the glenohumeral joint DATA REPOSITORY:
== END 2022-10-21 02:51 ==
PROVIDERS: PCP Physician Assistant; Visit Provider Student in an Organized Health Care Education/Training Program
DX: M75.51 Bursitis of right shoulder (principal); M19.011 Primary osteoarthritis, right shoulder; S43.431A Superior glenoid labrum lesion of right shoulder, initial encounter; X58.XXXA Exposure to other specified factors, initial encounter
CPT/HCPCS: 73221

== ENCOUNTER 2022-11-13 05:50 | Day surgery (SDC) | payer BC, SELFPAY ==
[2022-11-13 06:08] VITALS: BP 122/74; PULSE 87; RESP 16; TEMP 36.3; O2SAT 95
[2022-11-13] MEDS: Lactated Ringers 1,000 ML 30 ML IV (07:00)
--- NOTE | 2022-11-13 07:04 | W.ANESPRE ---
General Info Date of Service Date Performed: 11/13/22 Height: 5 ft 9 in Weight: 135 kg Body Mass Index (BMI): 43.9 Surgical Procedure: Operation Date: 11/13/22 07:40 Proposed Procedure Side Surgeon p Shoulder Manipulation Right Ladarius Fuentes MD Meds Allergies and Home Medications Allergies Allergy/AdvReac Type Severity Reaction Status Date / Time guaifenesin Allergy Intermediate Verified 11/13/22 06:26 varenicline tartrate Allergy Mild Itching Verified 11/13/22 06:26 [From Chantix] Sulfa (Sulfonamide AdvReac Severe vomiting Verified 11/13/22 06:26 Antibiotics) gabapentin AdvReac Intermediate muscle Verified 11/13/22 06:26 spasm NSAIDS (Non-Steroidal AdvReac Intermediate GI Symptoms Verified 11/13/22 06:26 Anti-Inflamma zolpidem tartrate AdvReac Intermediate sleep walks Verified 11/13/22 06:26 [From Ambien] trimethoprim [From Bactrim] AdvReac Mild Nausea Verified 11/13/22 06:26 polyethylene glycol 3350 AdvReac GI upset Verified 11/13/22 06:26 [From Miralax] burdocks Allergy Mild hives, Uncoded 11/12/22 12:07 itching naldecon Allergy unknown Uncoded 11/12/22 12:07 Home Medication Medication Instructions Recorded etonogestrel 68 mg subdermal 1 implant subdermal DIRECTED 06/10/17 implant (Nexplanon) omeprazole 40 mg capsule,delayed 40 mg PO DAILY 12/23/17 release tramadol 50 mg tablet 50 mg PO Q8H PRN pain #90 tabs 06/17/18 nystatin 100,000 unit/gram topical 1 applic topical TID PRN 07/16/18 powder trazodone 50 mg tablet 100 mg PO HS 07/16/18 oxybutynin chloride 10 mg 10 mg PO DAILY 10/21/18 tablet,extended release 24 hr loratadine 10 mg tablet 10 mg PO DAILY 10/25/19 acetaminophen 650 mg 1,300 mg PO QAM 07/16/20 tablet,extended release spironolactone 50 mg tablet 50 mg PO DAILY 07/16/20 celecoxib 200 mg capsule (Celebrex) 200 mg PO BID 09/26/21 eletriptan 40 mg tablet (Relpax) 40 mg PO PRN #6 tab-caps 12/03/21 lidocaine 5 % topical patch 1 patch transdermal DAILY PRN 12/03/21 topiramate 100 mg tablet 100 mg PO QHS #90 tabs 12/03/21 atorvastatin 10 mg tablet 10 mg PO DAILY 06/02/22 bupropion HCl 150 mg 24 hr tablet, 150 mg PO QAM 06/02/22 extended release fluconazole 150 mg tablet 150 mg PO ONCE #1 tab 07/02/22 (Diflucan) tirzepatide 5 mg/0.5 mL 5 mg subcut QWEEK 09/10/22 subcutaneous pen injector (Mounjaro) oxycodone 5 mg tablet 5 - 10 mg PO Q4H PRN moderate to 11/13/22 severe pain #9 tabs Current Visit Medications: Current Medications Generic Name Dose Route Start Last Admin Trade Name Freq PRN Reason Stop Dose Admin Ringer's Solution 1,000 mls @ 30 mls/hr 11/13/22 06:00 IV 11/13/22 23:59 INFUSION NICK IV Miscellaneous Supplies 1 each 11/13/22 06:00 Iv Access IV 11/13/22 23:59 DIRECTED NICK Sodium Chloride 0 ml 11/13/22 06:00 Normal Saline Flush 10 Ml Syr IV 11/13/22 23:59 PRN PRN Sodium Chloride 0 ml 11/13/22 06:00 Normal Saline 10 Ml Vial IJ 11/13/22 23:59 DIRECTED PRN Sterile Water 0 ml 11/13/22 06:00 Water,Injection,Sterile 10 Ml Vial IJ 11/13/22 23:59 DIRECTED PRN PFSH Active Problems Active Problems: Problem Status Onset Code Adhesive capsulitis of right shoulder M75.01 Bursitis of shoulder, right M75.51 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, U09.9 Dizziness R42 Contusion of left index finger 08/13/21 S60.022A Osteoarthritis of left knee M17.12 Postop check Z09 Presence of subdermal contraceptive implant 01/04/20 Z97.5 Chronic cholecystitis K81.1 Epigastric pain R10.13 Elevated antinuclear antibody (ALEJANDRINA) level R76.8 Erosive gastritis K29.60 Primary osteoarthritis of knee M17.10 Osteoarthritis of left knee M17.12 Depression F32.9 Migraine headache without aura G43.009 Migraine headache with aura G43.109 Status post arthroscopy of left knee Z98.890 Effusion, left knee M25.462 Internal derangement of left knee M23.92 Gastric ulcer K25.9 PCOS (polycystic ovarian syndrome) E28.2 Medical History Medical History Abnormal Pap smear of cervix 2010 CIN1 2013 ASCUS + HPV 2015 LEEP CIN2 BMI 39.0-39.9,adult C. difficile colitis 2/2 antibiotics CMV (cytomegalovirus) infection Dec 2016 with mono-like illness Diverticulitis large intestine Migraine has been on supression with Topaxax. 2015 has weaned off. Tobacco use adverse rxn to Chantix in past 07/2014 Quit with Wellbutrin Surgical History Surgical History Arthroplasty of knee (~02/2013) L lateral meniscus repair, open lateral release Dec 2017. 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 Tobacco Smoking/Tobacco Use Status: Former Tobacco Use Passive smoking exposure: No Alcohol Alcohol Intake: former Substance Use Substance use: Never Substance use type: does not use Prental History History 1 Para 1 Hx # Term Pregnancies Multiple births Hx # Pregnancies Ectopic pregnancies AB induced Hx Number of Living Children AB spontaneous Vital Signs and Lab Results Vital Signs Most Recent Vital Signs in EMR: Most Recent Vital Signs Temp Pulse Resp BP Pulse Ox 36.3 C L 87 16 122/74 95 11/13/22 06:08 11/13/22 06:08 11/13/22 06:08 11/13/22 06:08 11/13/22 06:08 Lab Results Blood Type / Crossmatch: No Data to Display Complete Blood Count: No Data to Display Complete Metabolic Panel: No Data to Display Liver Function Panel: No Data to Display Coagulation Panel: No Data to Display Cardiac Panel: No Data to Display Arterial Blood Gas: No Data to Display Venous Blood Gas: No Data to Display Pancreas Panel: No Data to Display Thyroid Panel: No Data to Display Infectious Disease: No Data to Display Blood Cultures: No Data to Display Toxicology Panel: No Data to Display Panel: No Data to Display Anesthesia Assessment and Plan Anesthesia History Personal History: No History of Anesthesia Complications Family History: No Family History of Anesthesia Complications Exercise Tolerance Exercise Tolerance: Metabolic Equivalents>4 Pertinent Negatives Pertinent Negatives: No Symptoms of GERD Cardiac & Pulmonary Exam Cardiac Exam: Normal S1/S2 Heart Sounds Pulmonary Exam: Clear Bilateral Breath Sounds Implantable Cardiac Device Does patient have a Pacemaker or an ICD?: No Airway Exam Known Difficult Airway: No Mallampati Class: 2 Mouth Opening: Narrow (< 3cm) Thyromental Distance: Greater than 3 cm Neck Range of Motion: Full ROM Neck Circumference: Thick Teeth Condition: Normal Dentition ASA Classification ASA Score: ASA 2 Emergency Case?: No NPO Status NPO Status: NPO Clears >2 hours, Solids >8 hours Status Status: Negative HCG Anesthesia Plan Resuscitation Status: Full Code Anesthesia Technique: General Anesthesia Airway Planned: LMA Monitors Used: Standard Monitors
--- NOTE | 2022-11-13 07:05 | W.PM.OP ---
Date of service: 11/13/22 Time of Service: 07:30 Operative Note Operative Note DATE OF PROCEDURE: 11/13/22 PRE-OP DIAGNOSIS: Right shoulder severe pain and adhesive capsulitis POST-OP DIAGNOSIS: same PROCEDURE: Right shoulder manipulation under anesthesia, CPT #08333 SURGEON: Ladarius Fuentes ANESTHESIA TYPE: General:No Airway and Primary Nerve Block Refer to Anesthesia Record ESTIMATED BLOOD LOSS: 0 COMPLICATIONS: None Patient was transported to: PACU Patient's condition: stable Indications: Please see complete medical record for details. Procedure Description: In the operating room, general anesthesia was induced. The patient was positioned supine on the stretcher. All bony prominences were well-padded. Preoperative antibiotics were omitted. The correct patient, procedure, and side of the procedure were all verified prior to beginning. The right shoulder was examined under anesthesia and demonstrated mildly restricted forward elevation and moderately limited external rotation at the side, about 30 degrees external rotation and 120 degrees forward elevation. No instability or mechanical symptoms appreciated. Using a short lever arm, and gentle steady pressure full shoulder range of motion in all directions was readily restored without too much effort. There were soft releases into wide external rotation at the side as well as terminal forward elevation. Extreme positions of motions were exaggerated and held multiple times including external rotation at the side, forward elevation, abduction, and internal and external rotation at 90 degrees abduction. There were no restrictions or spurring back to motion. Range of motion was full easily past 65 degrees external rotation, 145 degrees for elevation, and nearly 90 degrees internal and external rotation at 90 degrees abduction. No instability. The patient awoke from anesthesia without complication and was transferred to the recovery room in a stable condition.
--- NOTE | 2022-11-13 07:05 | W.PM.DSUDISC ---
Date of service: 11/13/22 Time of Service: 08:00 Discharge Plan Disposition Patient Disposition: Home Discharge Details Attending Provider: Ladarius Fuentes Primary Care Provider: Eliud Ann Home Meds and New Rx's Prescriptions: New oxycodone 5 mg tablet 5 - 10 mg PO Q4H MDD 30 mg PRN (Reason: moderate to severe pain) Qty: 9 0RF Continued tramadol 50 mg tablet 50 mg PO Q8H PRN (Reason: pain) Qty: 90 2RF oxybutynin chloride 10 mg tablet extended release 24hr 10 mg PO DAILY eletriptan [Relpax] 40 mg tablet 40 mg PO PRN Qty: 6 5RF Rx Instructions: prn headache. Ok to repeat after 2 hours. No more than 2 tabs in a 24 hours. topiramate 100 mg tablet 100 mg PO QHS Qty: 90 3RF Mounjaro 5 mg/0.5 mL pen injector 5 mg subcut QWEEK celecoxib [Celebrex] 200 mg capsule 200 mg PO BID atorvastatin 10 mg tablet 10 mg PO DAILY bupropion HCl 150 mg tablet extended release 24 hr 150 mg PO QAM fluconazole [Diflucan] 150 mg tablet 150 mg PO ONCE Qty: 1 1RF Rx Instructions: as a single dose. If symptoms still present in 5 days, refill and repeat dose. trazodone 50 mg Tablet 100 mg PO HS nystatin 100,000 unit/gram Powder 1 applic topical TID PRN lidocaine 5 % adhesive patch,medicated 1 patch Transdermal DAILY PRN Patient Comments: Apply for 12 hours per day to left knee Nexplanon 68 MG implant 1 implant subdermal DIRECTED Patient Comments: left upper arm placed 2017, currently in place omeprazole 40 mg Capsule,Delayed Release(Dr/Ec) 40 mg PO DAILY spironolactone 50 mg tablet 50 mg PO DAILY Patient Comments: TAKE ONE TABLET BY MOUTH ONCE DAILY acetaminophen 650 mg Tablet Extended Release 1,300 mg PO QAM loratadine 10 mg Tablet 10 mg PO DAILY Discharge Instructions Additional Instructions: Surgery: Right shoulder manipulation under anesthesia Activity: Discontinue sling as nerve block wears off. Encourage progressively increasing right shoulder range of motion. Start physical therapy as prescribed within 1-2 days. Prescriptions: Oxycodone 5 mg take 1-2 every 4-6 hours as needed for severe pain Dressings: None Follow-up: 10-[address] Fuentes You may take off the leg compression stockings this evening at home. You may also leave them on a few days longer if you have a history of leg swelling or edema. Let us know right away if you develop any redness, drainage, fevers, chest pain, or trouble breathing. Do not drink alcohol or drive for at least 24 hours after anesthesia. Please call the office during business hours with any questions or concerns. Discharge Orders Discharge Orders: Discharge Order (Routine); Ordered 11/13/22 Ordered By: Ladarius Fuentes DS: Diagnosis Discharge Diagnosis (1) Adhesive capsulitis of right shoulder: Status: Acute
[2022-11-13 07:20] VITALS: BP 135/79; PULSE 78; PULSE 88; RESP 16; TEMP 36.5; O2SAT 95
[2022-11-13 07:51] VITALS: BP 132/66; PULSE 85; RESP 16; TEMP 36.2; O2SAT 92
[2022-11-13] MEDS: Ketorolac 30 MG/ML VIAL (08:00)
[2022-11-13 08:05] VITALS: BMI 43.9
--- NOTE | 2022-11-13 08:06 | W.ANESNERVE ---
Nerve Block Single Injection Procedure Date and Time Date Performed: 11/13/22 Procedure Start: 07:20 Location Where Procedure Performed Procedure Location: Day Surgery Unit Reason Performed: Postoperative Analgesia Requesting Provider: Ladarius Fuentes Timeout Performed Timeout Performed: Yes Monitoring Used ECG, Blood Pressure, SpO2 and ETCO2 Sterility Sterility: Hand Hygiene, Surgical Cap, Surgical Mask, Sterile Gloves, Eye Protection and Chlorhexidine Sedation Given During Procedure Sedation Given (Indicate Dose Given): Versed IV Dose:: 2mg Patient Mental Status Patient Mental Status: Sedate with meaningful communication Nerve Block 1st Nerve Block: Laterality: Left Block Type: Interscalene Ultrasound Image Saved?: Yes Needle / Catheter Used: 100mm SonoPlex II Local Anesthetic Bolus (Indicate Dose Given): Lidocaine used for local infiltration of skin (2%/1cc), Bupivacaine 0.5% Dose:: 0.5%/10cc (50mg) and Exparel Dose:: 1.3%/10cc (133mg) Additives (Indicate Dose Given): Epinephrine to make 1:200,000 (5mcg/ml) Dose:: 100mcg (5mcg/cc) and Decadron Dose:: 8mg Ultrasound: Sterile probe cover and gel used Nerve Stimulator: Not Used Paresthesia: None Procedure Tolerated: No Complications Procedure Outcome: Successful Performed By: Mauro Duenas
--- NOTE | 2022-11-13 08:15 | W.ANESPOSTOP ---
Postoperative Evaluation Date, Time and Location Date Performed: 11/13/22 Time Performed: 08:15 Patient Location: Day Surgery Unit Vital Signs Most Recent Imported Vital Signs: Most Recent Vital Signs Temp Pulse Resp BP Pulse Ox 36.2 C L 85 16 132/66 92 11/13/22 07:51 11/13/22 07:51 11/13/22 07:51 11/13/22 07:51 11/13/22 07:51 Pain Score Most Recent Pain Score: Most Recent Pain Score Pain Level 0 11/13/22 07:51 Assessment Mental Status: Awake (Alert & Oriented to Patient Baseline) Airway and Respiratory Function: Patent airway with normal (patient baseline) respiratory exam Cardiovascular Function: Hemodynamically Stable Hydration Status: Adequately Hydrated Nausea & Vomiting: No Nausea or Vomiting Pain: Pt. Denies Any Pain Peripheral Nerve Block: Regional nerve block not resolved at time of post operative discharge
[2022-11-13 08:30] VITALS: BP 141/83; PULSE 71; RESP 16; TEMP 36.2; O2SAT 93
== END 2022-11-13 08:40 | disposition home or self-care (01) ==
PROVIDERS: PCP Physician Assistant; Visit Provider Student in an Organized Health Care Education/Training Program
PROC: (CPT 23700; principal; 2022-11-13 07:30)
DX: M75.01 Adhesive capsulitis of right shoulder (principal)
CPT/HCPCS: 23700; 76942; J0171; J1100; J1885; J2001; J2250; J2405; J2704

== ENCOUNTER → 2023-01-01 13:05 | Outpatient (CLI) | payer BC, SELFPAY ==
--- NOTE | 2023-01-01 10:00 | DI.RAD_ITS ---
Exam(s) XR LUMBAR SPINE COMPLETE EXAM: XR LUMBAR SPINE COMPLETE CLINICAL HISTORY: LOW BACK PAIN-M54.50. TECHNIQUE: 2D digital imaging was performed of the lumbar spine. Five images were obtained. AP, la teral, right oblique, left oblique and L5-S1 spot views were obtained. COMPARISON: CR LUMBAR SPINE COMPLETE from 09/22/2009 FINDINGS: BONES: No fracture or destructive lesion. There are endplate osteophytes seen at L2-3 and L3-L4. No f acet hypertrophy identified. DISKS: Intervertebral disc spaces are maintained. ALIGNMENT: Lumbar spinal alignment is within normal limits. No spondylolysis or spondylolisthesis. SOFT TISSUE: Surgical clips are seen in the right upper quadrant of the abdomen. IMPRESSION: Mild degenerative changes in the lumbar spine. DATA REPOSITORY: RADIATION DOSE DELIVERED:
== END ==
PROVIDERS: PCP Physician Assistant; Visit Provider Nurse Practitioner Family
DX: M51.36 Other intervertebral disc degeneration, lumbar region (principal)
CPT/HCPCS: 72110

== ENCOUNTER → 2023-04-24 02:46 | Outpatient (CLI) | payer BC, SELFPAY ==
--- NOTE | 2023-04-24 11:30 | DI.MRI_ITS ---
Exam(s) MR LUMBAR SPINE WO EXAM: MR LUMBAR SPINE WO CLINICAL HISTORY: M54.50 Low back pain,unspecified. TECHNIQUE: Multiplanar multisequence MRI of the Lumbar spine was performed. COMPARISON: CR XR LUMBAR SPINE COMPLETE from 01/01/2023 FINDINGS: Bones: The last intervertebral disc space is designated the L5/S1 level for the numbering purpose of this examination. The vertebral body heights are well maintained. Alignment is satisfactory. Isaiah ioma or fatty rests are seen in the T12 and L3 vertebral bodies. Degenerative endplate signal change s are seen at several levels of the lumbar spine. Cord: The conus tip ends at the T12 level. It is of normal size and signal intensity. T12-L1: No disc herniations or bulges are present. No central spinal canal or neural foraminal stenos is. L1-2: No disc herniations or bulges are present. No central spinal canal or neural foraminal stenosis . L2-3: No disc herniations or bulges are present. No central spinal canal or neural foraminal stenosis . L3-4: No disc herniations or bulges are present. No central spinal canal or neural foraminal stenosis . L4-5: No disc herniations or bulges are present. No central spinal canal or neural foraminal stenosis .There are degenerative changes of the facets. L5-S1: There is a small central disc herniation. No central spinal canal or neural foraminal stenosi s. Soft tissues: The visualized SI joints and sacrum are well maintained. The paraspinal soft tissues ar e unremarkable. IMPRESSION: No evidence of significant spinal stenosis or neuroforaminal narrowing. DATA REPOSITORY:
== END ==
PROVIDERS: PCP Physician Assistant; Visit Provider Physician Assistant
DX: M48.02 Spinal stenosis, cervical region (principal); M99.63 Osseous and subluxation stenosis of intervertebral foramina of lumbar region
CPT/HCPCS: 72148

== ENCOUNTER 2023-05-15 12:58 | Outpatient (CLI) | payer BC, SELFPAY ==
[2023-05-15 13:12] LABS: Abs Immature Grans 0.03 10^3/uL (0.0-0.06); Absolute Basophil Count 0.05 10^3/uL (0.0-0.2); Absolute Eosinophil Count 0.19 10^3/uL (0.0-0.7); Absolute Lymphocyte Count 2.62 10^3/uL (1.2-3.4); Absolute Monocyte Count 0.61 10^3/uL (0.1-0.8); Absolute Neutrophil Count 4.33 10^3/uL (1.2-6.7); Basophils % 0.6; Eosinophils % 2.4; HCT 39.1 % (36.0-46.0); HGB 12.6 g/dL (11.2-15.7); Immature Grans % 0.4; Lymphocytes % 33.5; MCH 26.5 pg (27.0-33.0); MCHC 32.2 % (32.0-36.0); MCV 82 fL (80-95); MPV 10.2 fL (8.0-11.0); Monocytes % 7.8; Neutrophils % 55.3; Platelet Count 249 10^3/uL (130-400); RBC 4.76 10^6/uL (3.93-5.22); RDW-SD 41.7 fL; WBC 7.83 10^3/uL (4.4-10.8)
[2023-05-15 13:24] LABS: INR 1.1 (0.9-1.1); PTT Activated 26.7 sec (23.6-32.8); Prothrombin Time 10.7 sec (9.1-11.1)
== END 2023-05-15 12:59 | disposition home or self-care (01) ==
LOC: LBO 13:02
PROVIDERS: PCP Physician Assistant; Visit Provider Physician Assistant
DX: R23.8 Other skin changes (principal); U07.1 COVID-19
CPT/HCPCS: 36415; 85025; 85610; 85730

== ENCOUNTER 2023-06-17 11:54 | Outpatient (REF) | payer BC, SELFPAY ==
[2023-06-17 16:10] LABS: ALT 20 U/L (14-59); AST 12 U/L (15-37); Albumin 3.7 g/dL (3.4-5.0); Alkaline Phosphatase 78 U/L (46-116); Anion Gap 11.8 mmol/L (3-11); BUN 16 mg/dL (7-18); Bilirubin, Total 0.5 mg/dL (0.2-1.0); CO2 20.2 mmol/L (21.0-32.0); CREATININE 0.9 mg/dL (0.55-1.02); Calcium 8.6 mg/dL (8.5-10.1); Calculated LDL 71 mg/dL (<100); Chloride 109 mmol/L (98-107); Cholesterol 124 mg/dL (<200); Estimated GFR 82.37 (mL/min/1.73m2); Glucose 91 mg/dL (74-106); HDL Cholesterol 38 mg/dL (40-60); Potassium 4.4 mmol/L (3.5-5.1); Sodium 141 mmol/L (136-145); Total Protein 6.4 g/dL (6.4-8.2); Triglyceride 79 mg/dL (<150)
[2023-06-17 16:42] LABS: Hemoglobin A1C 5.6 % (<5.7)
== END 2023-06-17 11:55 | disposition home or self-care (01) ==
LOC: NCHCN 11:54
PROVIDERS: PCP Physician Assistant; Referring Provider Physician Assistant; Visit Provider Physician Assistant
DX: E11.9 Type 2 diabetes mellitus without complications (principal)
CPT/HCPCS: 80053; 80061; 83036

== ENCOUNTER 2023-06-24 15:08 | Outpatient (REF) | payer BC, SELFPAY ==
[2023-06-24 16:45] LABS: Microalb ug/mg Crea 5.2 ug/mg Cr
== END 2023-06-24 15:09 | disposition home or self-care (01) ==
LOC: NCHCN 15:08
PROVIDERS: PCP Physician Assistant; Visit Provider Physician Assistant
DX: E11.9 Type 2 diabetes mellitus without complications (principal)
CPT/HCPCS: 82043; 82570

== ENCOUNTER 2023-10-14 13:21 | Outpatient (REF) | payer BC, SELFPAY ==
[2023-10-14 15:06] LABS: C-Reactive Protein 0.74 mg/dL (<or=0.5)
[2023-10-14 15:15] LABS: Abs Immature Grans 0.05 10^3/uL (0.0-0.06); Absolute Basophil Count 0.04 10^3/uL (0.0-0.2); Absolute Eosinophil Count 0.22 10^3/uL (0.0-0.7); Absolute Lymphocyte Count 1.98 10^3/uL (1.2-3.4); Absolute Monocyte Count 0.54 10^3/uL (0.1-0.8); Absolute Neutrophil Count 3.93 10^3/uL (1.2-6.7); Basophils % 0.6 %; Eosinophils % 3.3 %; HCT 37.4 % (36.0-46.0); HGB 12.1 g/dL (11.2-15.7); Immature Grans % 0.7 %; Lymphocytes % 29.3 %; MCH 26.4 pg (27.0-33.0); MCHC 32.4 % (32.0-36.0); MCV 82 fL (80-95); MPV 11.2 fL (8.0-11.0); Neutrophils % 58.1 %; Platelet Count 255 10^3/uL (130-400); RBC 4.58 10^6/uL (3.93-5.22); RDW 14.1 % (11.7-14.6); WBC 6.76 10^3/uL (4.4-10.8)
[2023-10-14 15:25] LABS: ESR 16 mm/hr (0-20)
[2023-10-14 16:08] LABS: Hemoglobin A1C 5.9 % (<5.7)
== END 2023-10-14 13:22 | disposition home or self-care (01) ==
LOC: NCHCN 13:21
PROVIDERS: PCP Physician Assistant; Visit Provider Physician Assistant
DX: E11.9 Type 2 diabetes mellitus without complications (principal); R79.82 Elevated C-reactive protein (CRP); M25.50 Pain in unspecified joint
CPT/HCPCS: 85652; 83036; 85025; 86140

== ENCOUNTER 2023-12-15 11:30 | Outpatient (CLI) | payer BC, SELFPAY ==
[2023-12-15 11:16] LABS: Glucose 103 mg/dL (74-106)
== END 2023-12-15 11:31 | disposition home or self-care (01) ==
PROVIDERS: PCP Physician Assistant; Visit Provider Physician Assistant
DX: E11.9 Type 2 diabetes mellitus without complications (principal)
CPT/HCPCS: 36415; 82947

== ENCOUNTER 2024-01-09 11:00 | Emergency (ER) | payer BC, SELFPAY ==
[2024-01-09 11:03] VITALS: BP 124/81; PULSE 84; RESP 20; TEMP 36.7; O2SAT 95
--- NOTE | 2024-01-09 11:15 | DI.RAD_ITS ---
Exam(s) XR KNEE RT 4V AP,LAT,ATILIO,PAT EXAM: XR KNEE RT 4V AP,LAT,ATILIO,PAT CLINICAL HISTORY: nontraumatic knee pain, shooting down medial aspec. TECHNIQUE: 2D digital imaging was performed of the right knee. Four views obtained. Merchant, AP, la teral and PA tunnel views were obtained. COMPARISON: There are no priors for comparison. FINDINGS: BONES: No acute fracture is present. No bony destructive lesion is seen. JOINTS: The knee is normally aligned. No joint effusion is seen. SOFT TISSUE: Normal. IMPRESSION: Unremarkable radiographs of the right knee. DATA REPOSITORY: RADIATION DOSE DELIVERED:
--- NOTE | 2024-01-09 11:44 | ED.GENADUL_ITS ---
Discharge Plan Disposition Patient Disposition: Home Discharge Details Clinical Impression: Pain in right knee Primary Care Provider: Eliud Ann ED Provider: Aicha Estevez Home Meds and New Rx's Prescriptions: Continued oxybutynin chloride 10 mg tablet extended release 24hr 10 mg PO DAILY Mounjaro 5 mg/0.5 mL pen injector 5 mg subcut QWEEK triamcinolone acetonide 0.1 % ointment 1 applic topical BID Qty: 15 0RF celecoxib [Celebrex] 200 mg capsule 200 mg PO BID eletriptan [Relpax] 40 mg tablet 40 mg PO PRN Qty: 6 5RF Rx Instructions: prn headache. Ok to repeat after 2 hours. No more than 2 tabs in a 24 hours. atorvastatin 10 mg tablet 10 mg PO DAILY bupropion HCl 150 mg tablet extended release 24 hr 150 mg PO QAM amoxicillin 500 mg capsule 500 mg PO ONCE Rx Instructions: take one hour prior to dental procedures cyclobenzaprine 10 mg tablet 10 mg PO TID PRN lorazepam 0.5 mg tablet 0.5 mg PO TID PRN methocarbamol 750 mg tablet 1,500 mg PO Q6H bupropion HCl [Wellbutrin XL] 150 mg tablet extended release 24 hr 150 mg PO QAM trazodone 50 mg Tablet 100 mg PO HS nystatin 100,000 unit/gram Powder 1 applic topical TID PRN lidocaine 5 % adhesive patch,medicated 1 patch Transdermal DAILY PRN Patient Comments: Apply for 12 hours per day to left knee topiramate 100 mg tablet 100 mg PO QHS Qty: 90 0RF Nexplanon 68 MG implant 1 implant subdermal DIRECTED Patient Comments: left upper arm placed 2017, currently in place spironolactone 50 mg tablet 50 mg PO DAILY Patient Comments: TAKE ONE TABLET BY MOUTH ONCE DAILY acetaminophen 650 mg Tablet Extended Release 1,300 mg PO QAM Discharge Instructions Additional Instructions: Please call orthopedics this week to schedule follow-up appointment for further evaluation into your knee pain. I encourage you to use the Juan Manuel wrap for compression, elevate your leg above heart level, and use ice for comfort. Rest as needed. Referrals: [facility] [Provider Group] Discharge Data Discharge Date/Time-TO BE ENTERED AT DEPARTURE: 01/09/24 12:49 HPI General Date/Time Provider Initiated Documentation: 01/09/24 11:15 . HPI Narrative: Bernice is a 43 year old female who presents to the emergency dept today for evaluation of R knee pain. She reports pain started yesterday while [place] [employer]; says she was walking and it suddenly started hurting with ambulation, shooting on the medial aspect of the knee. She admits she was wearing unsupportive shoes; she also has been leaning more heavily on that knee due to R knee needing to be replaced. She reports she has othewise been feeling well, no associated fever/chills, knee swelling or redness, distal numbness/tingling. No pain at rest, only mild pain with ROM. No previous injury or surgery to this knee. No new sports or other activities. Takes celebrex and tylenol daily; no improvement in pain. Physical exam reassuring. 5/5 muscle strength to lower extremity. Full ROM of knee, no pain with palpation. No associated erythema, warmth, or obvious joint effusion. No obvious joint laxity. DDx includes but is not limited to: sprain, strain, osteoarthritis, tendinitis. No red flags concerning for septic joint or other infectious etiology indicating need for bloodwork at this time. R knee xray obtained, no obvious fracture noted. This was confirmed by radiologist; no acute findings noted. Soft tissue injury or tendonitis likely etiology of pain; further workup by orthopedics recommended. Ice and juan manuel bandage applied for comfort. Reviewed discharge instructions with patient, including use of Juan Manuel bandage, rest, elevation, ice, and importance of follow-up with orthopedics. She is agreeable with plan of care. Related Data Home Medications ?Medication ?Instructions ?Recorded ?Confirmed etonogestrel 68 mg subdermal 1 implant subdermal DIRECTED 06/10/17 01/09/24 implant (Nexplanon) nystatin 100,000 unit/gram topical 1 applic topical TID PRN 07/16/18 01/09/24 powder trazodone 50 mg tablet 100 mg PO HS 07/16/18 01/09/24 oxybutynin chloride 10 mg 10 mg PO DAILY 10/21/18 01/09/24 tablet,extended release 24 hr acetaminophen 650 mg 1,300 mg PO QAM 07/16/20 01/09/24 tablet,extended release spironolactone 50 mg tablet 50 mg PO DAILY 07/16/20 01/09/24 celecoxib 200 mg capsule (Celebrex) 200 mg PO BID 09/26/21 01/09/24 lidocaine 5 % topical patch 1 patch transdermal DAILY PRN 12/03/21 01/09/24 atorvastatin 10 mg tablet 10 mg PO DAILY 06/02/22 01/09/24 bupropion HCl 150 mg 24 hr tablet, 150 mg PO QAM 06/02/22 01/09/24 extended release tirzepatide 5 mg/0.5 mL 5 mg subcut QWEEK 09/10/22 01/09/24 subcutaneous pen injector (Annie) eletriptan 40 mg tablet (Relpax) 40 mg PO PRN #6 tab-caps 12/02/22 01/09/24 triamcinolone acetonide 0.1 % 1 applic topical BID #15 grams 05/14/23 01/09/24 topical ointment amoxicillin 500 mg capsule 500 mg PO ONCE 06/30/23 01/09/24 bupropion HCl 150 mg 24 hr tablet, 150 mg PO QAM 06/30/23 01/09/24 extended release (Wellbutrin XL) cyclobenzaprine 10 mg tablet 10 mg PO TID PRN 06/30/23 01/09/24 lorazepam 0.5 mg tablet 0.5 mg PO TID PRN 06/30/23 01/09/24 methocarbamol 750 mg tablet 1,500 mg PO Q6H 06/30/23 01/09/24 topiramate 100 mg tablet 100 mg PO QHS #90 tabs 12/01/23 01/09/24 Previous Rx's ?Medication ?Instructions ?Recorded eletriptan 40 mg tablet (Relpax) 40 mg PO PRN #6 tab-caps 12/02/22 triamcinolone acetonide 0.1 % 1 applic topical BID #15 grams 05/14/23 topical ointment topiramate 100 mg tablet 100 mg PO QHS #90 tabs 12/01/23 Allergies Allergy/AdvReac Type Severity Reaction Status Date / Time guaifenesin Allergy Intermediate Unknown Verified 01/09/24 11:07 varenicline tartrate (From Allergy Mild Itching Verified 01/09/24 11:07 Chantix) Sulfa (Sulfonamide AdvReac Severe vomiting Verified 01/09/24 11:07 Antibiotics) gabapentin AdvReac Intermediate muscle Verified 01/09/24 11:07 spasm NSAIDS (Non-Steroidal AdvReac Intermediate GI Symptoms Verified 01/09/24 11:07 Anti-Inflamma zolpidem tartrate (From AdvReac Intermediate sleep walks Verified 01/09/24 11:07 Ambien) trimethoprim (From Bactrim) AdvReac Mild Nausea Verified 01/09/24 11:07 polyethylene glycol 3350 AdvReac GI upset Verified 01/09/24 11:07 (From Miralax) burdocks Allergy Mild hives, Uncoded 01/09/24 11:07 itching naldecon Allergy unknown Uncoded 01/09/24 11:07 General Stated Complaint: Orthopedic LATESHA: 4 Review of Systems Narrative: see HPI Exam Const General: cooperative, healthy appearing, comfortable, no acute distress, well developed and well groomed Nutritional Appearance: overweight Orientation: alert and oriented x3 Resp Effort & Inspection: normal respiratory effort and able to speak in complete sentences Skin General skin exam: no rashes or lesions noted Neuro Motor: muscle tone normal throughout and strength 5/5 throughout Sensory Exam: no sensory deficits noted Extrem Right lower extremity: full ROM, normal capillary refill, no joint enlargement and knee Details: tenderness (with palpation of medial knee), normal ROM and knee ligament exam normal; no swelling, no abrasions, no lacerations, no ecchymosis, no crepitus, no foreign bodies, no penetrating wound, no deformity and no unusual warmth Course Vital Signs Vital signs: Vital Signs Temperature 36.7 C 01/09/24 11:03 Pulse 84 01/09/24 11:03 Respiratory Rate 20 01/09/24 11:03 Blood Pressure 124/81 01/09/24 11:03 Pulse Oximetry 95 01/09/24 11:03 Temperature 36.7 C 01/09/24 11:03 Temperature Source Oral 01/09/24 11:03 Pulse 84 01/09/24 11:03 Respiratory Rate 20 01/09/24 11:03 Respiratory Effort Normal 01/09/24 11:27 Blood Pressure 124/81 01/09/24 11:03 Blood Pressure Position Supine 01/09/24 11:03 Pulse Oximetry 95 01/09/24 11:03 Oxygen Delivery Method Room Air 01/09/24 11:03 Oxygen Flow Rate 0 01/09/24 11:03 Medical Decision Making Quality:SDOH Health Related Social Needs: No Data to Display PFSH All Active Problems (Updated 01/09/24 @ 12:31 by Aicha Segovia) Pain in right knee (Acute) Sacroiliac joint dysfunction of right side (Acute) Biceps tendinitis of right shoulder (Acute) POCUS INJECTION 02/05/23 Chronic lower back pain (Chronic) Gastric ulcer (Chronic) Depression (Chronic) Internal derangement of left knee (Chronic) lateral meniscus abnormality Effusion, left knee (Acute) Status post arthroscopy of left knee (Acute) Partial medial and lateral meniscectomies, limited chondroplasty lateral tibial plateau DOS: 12/23/17 Dr. Martin Migraine headache with aura (Chronic) Migraine headache without aura (Chronic) Osteoarthritis of left knee (Acute) Steroid injection: 06/02/2022; 06/11/2020 Primary osteoarthritis of knee (Acute) Erosive gastritis (Acute) Elevated antinuclear antibody (ALEJANDRINA) level (Acute) Epigastric pain (Acute) Chronic cholecystitis (Acute) Presence of subdermal contraceptive implant (Acute 01/04/20) Postop check (Acute) Osteoarthritis of left knee (Acute) Contusion of left index finger (Acute 08/13/21) Dizziness (Acute) Post-COVID chronic neurologic symptoms (Acute) Bursitis of shoulder, right (Acute) Adhesive capsulitis of right shoulder (Acute) Medical History Right hip pain Right shoulder pain Diverticulitis of intestine Pain, joint, knee, left Edema Myositis Low back pain Joint pain H/O gastroesophageal reflux (GERD) Hyperlipidemia DM2 (diabetes mellitus, type 2) C. difficile colitis 2/2 antibiotics CMV (cytomegalovirus) infection Dec 2016 with mono-like illness Diverticulitis large intestine Tobacco use adverse rxn to Chantix in past 07/2014 Quit with Wellbutrin BMI 39.0-39.9,adult Abnormal Pap smear of cervix 2010 CIN1 2013 ASCUS + HPV 2014 LEEP CIN2 Migraine has been on supression with Topaxax. 2015 has weaned off. Surgical History lazik surgery (01/28/12) egd (07/13/12) with Dr Didi Edwards due to pain wiht swallowing Oophrectomy, Right (~2008) benign serous cystadenoma EGD - MAC (03/21/16) Colonoscopy - MAC (10/06/17) Arthroplasty of knee (~02/2013) L lateral meniscus repair, open lateral release Dec 2017. Previous scopes in ~2007 and ~2008 Family History Father , [place] Essential hypertension Anxiety Depression Heart disease Hyperlipidemia Myocardial infarction COPD (chronic obstructive pulmonary disease) Diverticular disease of colon error Asthma Mother Depression Diverticular disease of colon Grandfather Diabetes Alcohol abuse Personal history of malignant neoplasm Heart disease Brother Sleep apnea Essential hypertension Social History Smoking/Tobacco Use Status: Former Tobacco Use Quit Date: 04/13/14 Smoking risk assessment performed?: Yes Alcohol Intake: former Drug use: Never Substance use type: does not use Household members: children Housing: apartment Number of Children: 1 current occupation: [employer] Current gender identity: female What is your relationship status?: Panel score (0-1 are the most socially isolated patients): 0 What type of physical activity do you participate in: none Do you feel safe at home: Yes Do you feel safe in your relationship?: Yes Female Reproductive History Menstrual control method: implanted History History 1 Para 1 Hx # Term Pregnancies Multiple births Hx # Pregnancies Ectopic pregnancies AB induced Hx Number of Living Children AB spontaneous
--- NOTE | 2024-01-09 12:08 | DI.VRAD_ITS ---
PROCEDURE INFORMATION: Exam: XR Right Knee Exam date and time: 01/09/2024 11:52 AM Age: 43 years old Clinical indication: Other: Nontraumatic knee pain, shooting down medial aspect TECHNIQUE: Imaging protocol: Radiologic exam of the right knee. Views: 4 or more views. COMPARISON: CR RIGHT ANKLE COMPLETE 09/04/2017 12:31 PM FINDINGS: Bones/joints: Normal. Soft tissues: Normal. IMPRESSION: No acute findings. Dictated and Authenticated by: Sherrell Chase MD. Ordering:JASPER Holcomb MD
== END 2024-01-09 12:49 | disposition home or self-care (01) ==
PROVIDERS: Emergency Provider Nurse Practitioner Family; PCP Physician Assistant
DX: M25.561 Pain in right knee (principal)
CPT/HCPCS: 99283; 73564

== ENCOUNTER 2024-03-11 00:09 | Outpatient (CLI) | payer BC, SELFPAY ==
--- NOTE | 2024-03-11 08:50 | DI.MAMMO_ITS ---
Exam(s) MAMMO SCREENING EXAM: MAMMO SCREENING CLINICAL HISTORY: SCREENING, Z12.39 TECHNIQUE: Bilateral full field digital CC and MLO mammographic images were obtained with 3D tomosyn thesis and utilizing computer aided detection (CAD). COMPARISON: Available for comparison. FINDINGS: Masses/Architectural Distortion: None seen. Microcalcifications: No suspicious pleomorphic-type are seen. Skin Thickening/Nipple Retraction: None. IMPRESSION: 1. No significant interval change with no specific features of malignancy noted. 2. Unless there is more urgent need, screening mammography is recommended, as per [employer] guidelines. BI-RADS Category 1 - Negative Breast Density - Category B - Scattered areas of fibroglandular density Breast density category C or D implies that the patient has dense breast tissue. Dense breast tissue is very common and is not abnormal but dense breast tissue can make it harder to find cancer on a ma mmogram. Also, dense breast tissue may increase their breast cancer risk. This information about the result of the mammogram report was provided to the patient to raise their awareness. Use this report when you speak with the patient about their risks for breast cancer, which includes their family hist ory. At that time, you may recommend for more screening tests (Ultrasound or MRI) as they might be us eful based on their risk. A negative radiographic report should not delay biopsy if a dominant or clinically suspicious mass is present. Up to ten percent of cancers are not identified on mammography. A negative report may reinforce clinical impression. Adenosis and dense breasts may obscure an underlying neoplasm. False positive reports average 6 to 10%. Patient will receive a letter notifying them of these results.
== END 2024-03-11 00:29 ==
PROVIDERS: PCP Physician Assistant; Visit Provider Physician Assistant
DX: Z12.31 Encounter for screening mammogram for malignant neoplasm of breast (principal); R92.323 Mammographic fibroglandular density, bilateral breasts
CPT/HCPCS: 77063; 77067

== ENCOUNTER 2024-10-26 07:59 | Outpatient (CLI) | payer BC, SELFPAY ==
[2024-10-26 09:01] LABS: Hemoglobin A1C 5.7 % (<5.7)
[2024-10-26 09:03] LABS: ALT 26 U/L (14-59); AST 15 U/L (15-37); Albumin 3.6 g/dL (3.4-5.0); Alkaline Phosphatase 82 U/L (46-116); Anion Gap 8.4 mmol/L (3-11); BUN 20 mg/dL (7-18); Bilirubin, Total 0.5 mg/dL (0.2-1.0); CO2 25.6 mmol/L (21.0-32.0); Calcium 8.6 mg/dL (8.5-10.1); Calculated LDL 72 mg/dL (<100); Chloride 104 mmol/L (98-107); Cholesterol 131 mg/dL (<200); Estimated GFR 93.70 (mL/min/1.73m2); Glucose 92 mg/dL (74-106); HDL Cholesterol 36 mg/dL (>or=50); Potassium 4.0 mmol/L (3.5-5.1); Sodium 138 mmol/L (136-145); Total Protein 7.0 g/dL (6.4-8.2); Triglyceride 118 mg/dL (<150)
== END 2024-10-26 08:00 | disposition home or self-care (01) ==
LOC: LBO 08:00
PROVIDERS: PCP Physician Assistant; Visit Provider Physician Assistant
DX: E11.9 Type 2 diabetes mellitus without complications (principal)
CPT/HCPCS: 36415; 80053; 80061; 83036

== ENCOUNTER 2024-11-01 20:02 | Outpatient (REF) | payer BC, SELFPAY ==
[2024-11-01 19:10] LABS: ESR 20 mm/hr (0-20)
[2024-11-01 19:11] LABS: HCT 38.9 % (36.0-46.0); HGB 12.7 g/dL (11.2-15.7); MCH 26.1 pg (27.0-33.0); MCHC 32.6 % (32.0-36.0); MCV 80 fL (80-95); MPV 11.1 fL (8.0-11.0); Platelet Count 270 10^3/uL (130-400); RBC 4.86 10^6/uL (3.93-5.22); RDW 14.0 % (11.7-14.6); RDW-SD 40.8 fL; WBC 8.37 10^3/uL (4.4-10.8)
[2024-11-01 19:20] LABS: C-Reactive Protein 0.88 mg/dL (<or=0.5)
[2024-11-01 19:36] LABS: COMMENT (LAB VIEW ONLY) 359.37 mg/dL; Microalb ug/mg Crea 22.5 ug/mg Cr
== END 2024-11-01 20:03 | disposition home or self-care (01) ==
LOC: NCHCN 20:02
PROVIDERS: PCP Physician Assistant; Visit Provider Physician Assistant
DX: M25.59 Pain in other specified joint (principal); E11.9 Type 2 diabetes mellitus without complications
CPT/HCPCS: 85027; 85652; 86200; 82043; 82570; 86038; 86140; 86431

== ENCOUNTER 2025-03-01 13:41 | Outpatient (CLI) | payer BC, SELFPAY ==
--- NOTE | 2025-03-01 09:00 | DI.RAD_ITS ---
Exam(s) XR SHOULDER LT COMPLETE 2+V EXAM: XR SHOULDER LT COMPLETE 2+V CLINICAL HISTORY: LEFT SHOULDER PAIN. TECHNIQUE: 2D digital imaging was performed. Two views. COMPARISON: None FINDINGS: BONES: No acute fracture is present. No bony destructive lesion is seen. JOINTS: No dislocation present. The glenohumeral joint space is maintained. No significant spurring at the AC joint. SOFT TISSUE: Normal. IMPRESSION: Unremarkable radiographs of the left shoulder. DATA REPOSITORY: RADIATION DOSE DELIVERED:
== END 2025-03-01 13:42 | disposition home or self-care (01) ==
LOC: DIORS 13:42
PROVIDERS: PCP Physician Assistant; Visit Provider Student in an Organized Health Care Education/Training Program
DX: M25.512 Pain in left shoulder (principal)
CPT/HCPCS: 73030

== ENCOUNTER → 2025-04-04 10:56 | Outpatient (CLI) | payer BC, SELFPAY ==
--- NOTE | 2025-04-04 10:30 | DI.RAD_ITS ---
Exam(s) RF JOINT INJ. FLUORO GUID RAD EXAM: RF JOINT INJ. FLUORO GUID RAD CLINICAL HISTORY: L SHOULDER PAIN, STIFFNESS, ADHESIVE CAPSULITIS LT SHOULDER. TECHNIQUE: 2D and realtime digital imaging was performed. CONTRAST MATERIAL: Intra articular Omnipaque 300-1.5 cc. COMPARISON: CR XR SHOULDER LT COMPLETE 2+V from 03/01/2025 FINDINGS: This fluoroscopic guided left shoulder steroid injection was performed at the request of the orthopedic surgeon. Patient was consented prior to this procedure. The patient was placed in the supine position on the fluoroscopy table. Using sterile technique and adequate skin-subcutaneous anesthesia, fluoroscopic guidance was used to advance a 22 gauge spinal needle into the glenohumeral joint using an anterior approach. Intra-articular position was confirmed with intra-articular injection of 1.5 cc Omnipaque 300. Thereafter a sterile solution of depot Medrol 40 milligrams and 3 cc 0.25 percent bupivacaine were injected into the articular space. The needle was then removed. Band-Aid applied. The patient tolerated this procedure well and there were no intraprocedural complications. IMPRESSION: Successful left shoulder glenohumeral joint steroid injection using fluoroscopic guidance. RADIATION DOSE DELIVERED: Ka,r=3.43mGy
[2025-04-04] MEDS: Lidocaine 1% Pres-Free 30 ML VIAL IJ (11:39)
[2025-04-04] MEDS: Bupivacaine 0.25% Pres-Free 10 ML VIAL IJ (11:40)
[2025-04-04] MEDS: Omnipaque 300 MG/ML 10 ML BTL IJ (11:41)
[2025-04-04] MEDS: methylPREDNISolone ACETATE 40 MG/ML VIAL IM (11:41)
== END ==
LOC: DI 10:57
PROVIDERS: PCP Physician Assistant; Visit Provider Student in an Organized Health Care Education/Training Program
DX: M75.02 Adhesive capsulitis of left shoulder (principal)
CPT/HCPCS: 20610; 77002; J0665; J1010